=== PATIENT | male | born 1945 | race Caucasian/White ===

== ENCOUNTER 2016-09-13 18:14 | Emergency (ER) | payer OTHER ==
[2016-09-13 18:18] VITALS: BMI 27.2
--- NOTE | 2016-09-13 18:20 | DR.SOBA ---
HPI - Time Seen Time seen: 18:20 - HPI Comment HPI Comment: productive cough x 30 days. treated with zpak 2 weeks ago with no relief. no fever, no vomiting. - Reviewed Nurses Notes Reviewed: Yes - Source History Provided: Patient - Mode of Arrival Mode of Arrival: Ambulatory - Timing Onset of Chief Complaint: 08/14/16 - Duration Duration: Weeks - Context Onset:: At Rest PE Risk Factors:: None History of:: COPD Prehospital Care:: None - Modifying Factors Worsens:: Lying Flat Improves:: Nothing - Associated Signs and Symptoms Associated Signs and Symptoms: Cough - If Chest Pain Quality: denies: Sharp, Stabbing, Squeezing, Pressure like, Heavy, Crushing, Burning, Aching, Pleuritic, Other - If Cough Cough: Productive, Yellow - Other History Other History: Hx COPD PMH - PMH Past Medical History: Anxiety, Arthritis, COPD, Depression, Diabetes, Hypertension, Kidney Stones Past Surgical History: Yes Surgical History: Appendectomy, Bowel Resection - Family History Family Medical History: Diabetes Mellitus, [place], Coronary Artery Disease, Heart Failure, Sudden Cardiac , Hypertension - Social History Do you use any recreational Drugs:: No ROS - Review of Systems Constitutional: No Symptoms Reported Eyes: No Symptoms Reported ENTM: Nose Discharge Respiratoy: Productive Cough (yellow) Cardiovascular: No Symptoms Reported Gastrointestinal/Abdominal: No Symptoms Reported Genitourinary: No Symptoms Reported Neurological: No Symptoms Reported Musculoskeletal: No Symptoms Reported Integumentary: No Symptoms Reported Hematologic/Lymphatic: No Symptoms Reported Endocrine: No Symptoms Reported Psychiatric: Depression PE - Vital Signs Vitals: Temperature 97.8 F Pulse Rate 87 Respiratory Rate 20 Blood Pressure [Right Arm] 131/65 Blood Pressure [Left Arm] 133/65 Blood Pressure 191/86 O2 Sat by Pulse Oximetry 94 - General Limitations: No Limitations General Appearance: Alert, In No Apparent Distress - Head Head Exam: Normal Inspection - Eyes Eye exam: Normal Appearance, EOMI. negative: Scleral Icterus, Conjunctival Injection - ENT ENT Exam: Normal Exam, Normal Oropharynx - Neck Neck Exam: Normal Inspection, Full ROM, Trachea Midline - Chest Chest Inspection: Normal Inspection - Respiratory Respiratory Exam: negative: Normal Lung Sounds Bilat (LLL rales), Accessory Muscle Use, Respiratory Distress Respiratory Exam: Left Crackles - Cardiovascular Cardiovascular Exam: Regular Rate - Extremities Extremities Exam: Normal Inspection - Back Back Exam: Normal Inspection, Full ROM - Neurologic Neurological Exam: Alert, Oriented X3, CN II-XII Intact - Psychiatric Psychiatric Exam: Normal Affect - Skin Skin Exam: Intact, Normal Color ROR - Labs Reviewed Result Diagrams: 09/13/16 18:35 09/13/16 18:35 Laboratory: WBC 11.0 X10^3/uL (3.6-10.0) H 09/13/16 18:35 RBC 5.52 X10^6/uL (4.7-6.0) 09/13/16 18:35 Hgb 15.5 g/dL (13.5-18.0) 09/13/16 18:35 Hct 46.7 % (42.0-54.0) 09/13/16 18:35 MCV 84.6 fL (80.0-100.0) 09/13/16 18:35 MCH 28.1 pg (27.0-34.0) 09/13/16 18:35 MCHC 33.3 g/dL (33.0-35.0) 09/13/16 18:35 RDW 13.5 % (11.6-16.5) 09/13/16 18:35 Plt Count 141 X10^3/uL (150.0-450.0) L 09/13/16 18:35 MPV 8.6 fL (7.4-11.0) 09/13/16 18:35 Neut % 63.4 % (42.0-75.0) 09/13/16 18:35 Lymph % 24.2 % (21.0-51.0) 09/13/16 18:35 [place] % 9.1 % (0.0-13.0) 09/13/16 18:35 Eos % 2.5 % (0.9-2.9) 09/13/16 18:35 Baso % 0.8 % (0.2-1.0) 09/13/16 18:35 Neut # 7.0 x10^3/uL (2.2-4.8) H 09/13/16 18:35 Lymph # 2.7 X10^3/uL (1.3-2.9) 09/13/16 18:35 [place] # 1.0 x10^3/uL (0.3-0.8) H 09/13/16 18:35 Eos # 0.3 x10^3/uL (0.0-0.2) H 09/13/16 18:35 Baso # 0.1 X10^3/uL (0.0-0.1) 09/13/16 18:35 Absolute Nucleated RBC 0.0 /100WBC 09/13/16 18:35 Sodium 137 mmol/L (136-145) 09/13/16 18:35 Corrected Sodium 138 mmol/L (136-145) 09/13/16 18:35 Potassium 3.9 mmol/L (3.5-5.1) 09/13/16 18:35 Chloride 101 mmol/L (98-107) 09/13/16 18:35 Carbon Dioxide 30.5 mmol/L (21-32) 09/13/16 18:35 BUN 17 mg/dL (7-18) 09/13/16 18:35 Creatinine 0.91 mg/dL (0.70-1.30) 09/13/16 18:35 Est GFR (MDRD) Af Amer > 60 (>60) 09/13/16 18:35 Est GFR (MDRD) Non-Af > 60 (>60) 09/13/16 18:35 Glucose 151 mg/dL (65-99) H 09/13/16 18:35 Calcium 8.9 mg/dL (8.5-10.1) 09/13/16 18:35 - XRAY XRAY Interpreted by: Radiologist XRAY Findings: chest: COPD changes - Diagnosis Discharge Problem: COPD exacerbation - Discharge Plan Condition: Stable Prescriptions: Albuterol Sulfate [Proventil HFA Inhaler 6.7 gm] 2 inh IN Q8H #1 each Amoxicillin & Pot Clavulanate [AUGMENTIN TAB 875 mg/125 mg *] 1 tab PO BID #20 tab Prednisone [PREDNISONE TAB 20 MG *] 20 mg PO QAM #5 tab - Follow ups/Referrals Follow ups/Referrals: Hansel Francis [Primary Care Provider] - 3 days - Instructions
[2016-09-13] MEDS ORDERED: CATAPRES TAB 0.2 MG PO ONE (18:21)
[2016-09-13] MEDS ORDERED: CATAPRES TAB 0.2 MG ONE (18:32)
[2016-09-13] MEDS ORDERED: DUONEB 0.5 MG/3 MG NEB ONE (18:39)
[2016-09-13 18:45] LABS: BASOPHILS # (AUTO) 0.1 X10^3/uL (0.0-0.1); BASOPHILS % (AUTO) 0.8 % (0.2-1.0); EOSINOPHILS # (AUTO) 0.3 x10^3/uL (0.0-0.2); EOSINOPHILS % (AUTO) 2.5 % (0.9-2.9); HEMATOCRIT 46.7 % (42.0-54.0); HEMOGLOBIN 15.5 g/dL (13.5-18.0); LYMPHOCYTES # (AUTO) 2.7 X10^3/uL (1.3-2.9); LYMPHOCYTES % (AUTO) 24.2 % (21.0-51.0); MEAN CORPUSCULAR HEMOGLOBIN 28.1 pg (27.0-34.0); MEAN CORPUSCULAR HGB CONC 33.3 g/dL (33.0-35.0); MEAN CORPUSCULAR VOLUME 84.6 fL (80.0-100.0); MEAN PLATELET VOLUME 8.6 fL (7.4-11.0); MONOCYTES % (AUTO) 9.1 % (0.0-13.0); NEUTROPHILS % (AUTO) 63.4 % (42.0-75.0); PLATELET COUNT 141 X10^3/uL (150.0-450.0); RED BLOOD COUNT 5.52 X10^6/uL (4.7-6.0); RED CELL DISTRIBUTION WIDTH 13.5 % (11.6-16.5)
[2016-09-13 18:48] LABS: BLOOD UREA NITROGEN 17 mg/dL (7-18); CALCIUM 8.9 mg/dL (8.5-10.1); CARBON DIOXIDE 30.5 mmol/L (21-32); CHLORIDE 101 mmol/L (98-107); COR NA(FOR HYPERGLY) 138 mmol/L (136-145); CREATININE 0.91 mg/dL (0.70-1.30); GLUCOSE 151 mg/dL (65-99); SODIUM 137 mmol/L (136-145); eGFR BLACK RACES > 60 (>60); eGFR NON BLACK RACES > 60 (>60)
[2016-09-13] MEDS ORDERED: DUONEB 0.5 MG/3 MG ONE (18:48)
--- NOTE | 2016-09-13 19:29 | RAD ---
HISTORY: Productive cough. Study: Chest two views Comparison: December 17, 2014 Findings: The trachea is midline. The cardiac silhouette is unremarkable. Surgical clips project over both lew ng apices. There changes of COPD in both lungs. There is chronic interstitial lung disease bilateral ly. The lungs are clear without focal infiltrate or effusion. The bony thorax is unremarkable. IMPRESSION: 1. COPD/interstitial lung disease. 2. No acute pulmonary abnormality. Reported By:
[2016-09-13] MEDS ORDERED: PREDNISONE TAB 20 MG PO ONE ×2 (19:42→19:44)
[2016-09-13 19:50] VITALS: BP 150/73
== END 2016-09-13 19:51 | disposition home or self-care (01) ==
LOC: ER 18:37
DX: J44.1 Chronic obstructive pulmonary disease with (acute) exacerbation (principal)
CPT/HCPCS: 36415; 71020; 80048; 85025; 87070; 87205; 94640; 99283; J7506; J7620

== ENCOUNTER 2016-11-23 16:48 | Emergency (ER) | payer OTHER ==
[2016-11-23 16:58] VITALS: BP 162/78; BMI 27.5
--- NOTE | 2016-11-23 17:50 | DR.GENAD ---
HPI - PCP Primary Care Physician: KALEIGH CRAFT - Complaint/Symptoms Chief Complaint Doctors Comments: Patient states that he has a history of neuropathy Chief Complaint:: PT STATES " I HAVE BEEN HAVING SWELLING IN MY LEGS SINCE LAST SATURDAY AND I AM A DIABETIC. Self Treatment fo Chief Complaint: NONE PITTING EDEMA NOTED BILATERALLY TO LOWER EXTS..BR - Source History Provided: Patient - Mode of Arrival Mode of Arrival: Ambulatory - Timing Onset of Chief Complaint: 11/18/16 PMH - PMH Past Medical History: Yes Past Medical History: Anxiety, Arthritis, COPD, Depression, Diabetes, Hypertension, Kidney Stones Past Surgical History: Yes Surgical History: Appendectomy, Bowel Resection - Family History History of Family Medical Conditions: Yes Family Medical History: Diabetes Mellitus, [place], Coronary Artery Disease, Heart Failure, Sudden Cardiac , Hypertension - Social History Does patient currently use any type of tobacco product: No Have you used tobacco products in the last 12 months: No Type of Tobacco Use: None Does any household member use tobacco: No Alcohol Use: None Do you use any recreational Drugs:: No Lives With: Family Lives Where: Home - infectious screening In the last 2 months have you had wt loss of >10#?: NO Have you had fever, night sweats or hemotysis?: No Have you traveled outside the country in the last 6 months?: No Isolation: Standard ROS - Review of Systems Eyes: No Symptoms Reported ENTM: No Symptoms Reported Respiratoy: No Symptoms Reported Cardiovascular: No Symptoms Reported Gastrointestinal/Abdominal: No Symptoms Reported Genitourinary: No Symptoms Reported Neurological: No Symptoms Reported Musculoskeletal: No Symptoms Reported Integumentary: No Symptoms Reported Hematologic/Lymphatic: No Symptoms Reported Endocrine: No Symptoms Reported Psychiatric: No Symptoms Reported All Other Systems: Reviewed and Negative PE - Vital Signs Vitals: Temperature 97.8 F Pulse Rate 76 Respiratory Rate 18 Blood Pressure [Right Arm] 131/65 Blood Pressure [Left Arm] 150/73 Blood Pressure 162/78 O2 Sat by Pulse Oximetry 94 - General Limitations: No Limitations General Appearance: Alert, In No Apparent Distress - Head Head Exam: Normal Inspection, Atraumatic - Eyes Eye exam: Normal Appearance, PERRL, EOMI - ENT ENT Exam: Normal Exam External Ear Exam: Normal External Inspection TM/Canal Exam: Bilateral Normal Nose Exam: Normal Nose Exam, Sinus Tenderness Mouth Exam: Normal Inspection Throat Exam: Normal Inspection - Neck Neck Exam: Normal Inspection, Full ROM - Chest Chest Inspection: Normal Inspection, Symmetric Chest Wall Rise - Respiratory Respiratory Exam: Normal Lung Sounds Bilat Respiratory Exam: Bilateral Clear to Auscultation - Cardiovascular Cardiovascular Exam: Regular Rate, Normal Rhythm - Abdominal Exam Abdominal Exam: Normal Inspection, Normal Bowel Sounds Abdominal Tenderness: negative: RUQ, RLQ, LUQ, LLQ, Epigastrium, Suprapubic, Diffuse, Mild, Moderate, Severe, Other - Extremities Extremities Exam: Normal Inspection, Full ROM - Back Back Exam: Normal Inspection - Neurologic Neurological Exam: Alert, Oriented X3, CN II-XII Intact - Psychiatric Psychiatric Exam: Normal Affect - Skin Skin Exam: Warm, Dry, Intact ROR - Labs Reviewed Result Diagrams: 11/23/16 17:55 11/23/16 17:55 Laboratory: WBC 10.3 X10^3/uL (3.6-10.0) H 11/23/16 17:55 RBC 5.14 X10^6/uL (4.7-6.0) 11/23/16 17:55 Hgb 15.1 g/dL (13.5-18.0) 11/23/16 17:55 Hct 43.2 % (42.0-54.0) 11/23/16 17:55 MCV 84.1 fL (80.0-100.0) 11/23/16 17:55 MCH 29.3 pg (27.0-34.0) 11/23/16 17:55 MCHC 34.9 g/dL (33.0-35.0) 11/23/16 17:55 RDW 14.2 % (11.6-16.5) 11/23/16 17:55 Plt Count 159 X10^3/uL (150.0-450.0) 11/23/16 17:55 MPV 8.4 fL (7.4-11.0) 11/23/16 17:55 Neut % 66.5 % (42.0-75.0) 11/23/16 17:55 Lymph % 21.7 % (21.0-51.0) 11/23/16 17:55 [place] % 9.5 % (0.0-13.0) 11/23/16 17:55 Eos % 1.5 % (0.9-2.9) 11/23/16 17:55 Baso % 0.8 % (0.2-1.0) 11/23/16 17:55 Neut # 6.9 x10^3/uL (2.2-4.8) H 11/23/16 17:55 Lymph # 2.2 X10^3/uL (1.3-2.9) 11/23/16 17:55 [place] # 1.0 x10^3/uL (0.3-0.8) H 11/23/16 17:55 Eos # 0.2 x10^3/uL (0.0-0.2) 11/23/16 17:55 Baso # 0.1 X10^3/uL (0.0-0.1) 11/23/16 17:55 Absolute Nucleated RBC 0.0 /100WBC 11/23/16 17:55 Sodium 138 mmol/L (136-145) 11/23/16 17:55 Corrected Sodium 138 mmol/L (136-145) 11/23/16 17:55 Potassium 4.2 mmol/L (3.5-5.1) 11/23/16 17:55 Chloride 102 mmol/L (98-107) 11/23/16 17:55 Carbon Dioxide 31.2 mmol/L (21-32) 11/23/16 17:55 BUN 12 mg/dL (7-18) 11/23/16 17:55 Creatinine 1.02 mg/dL (0.70-1.30) 11/23/16 17:55 Est GFR (MDRD) Af Amer > 60 (>60) 11/23/16 17:55 Est GFR (MDRD) Non-Af > 60 (>60) 11/23/16 17:55 Glucose 118 mg/dL (65-99) H 11/23/16 17:55 Calcium 8.8 mg/dL (8.5-10.1) 11/23/16 17:55 Corrected Calcium TNP 11/23/16 17:55 Total Bilirubin 0.50 mg/dL (0.2-1.0) 11/23/16 17:55 AST 26 Units/L (15-37) 11/23/16 17:55 ALT 33 Units/L (12-78) 11/23/16 17:55 Alkaline Phosphatase 92 Units/L (46-116) 11/23/16 17:55 Total Protein 7.7 g/dL (6.4-8.2) 11/23/16 17:55 Albumin 3.5 g/dL (3.4-5.0) 11/23/16 17:55 Globulin 4.2 g/dL (2.5-4.5) 11/23/16 17:55 Albumin/Globulin Ratio 0.8 Ratio (1.1-2.1) L 11/23/16 17:55 Specimen Type Clean catch urine 11/23/16 18:46 Urine Color Yellow (YELLOW) 11/23/16 18:46 Urine Appearance Clear (CLEAR) 11/23/16 18:46 Urine pH 7.0 (5.0 - 8.0) 11/23/16 18:46 Ur Specific [place] 1.010 (1.000-1.030) 11/23/16 18:46 Urine Protein Negative (NEGATIVE) 11/23/16 18:46 Urine Glucose (UA) Negative (NEGATIVE) 11/23/16 18:46 Urine Ketones Negative (NEGATIVE) 11/23/16 18:46 Urine Occult Blood Negative (NEGATIVE) 11/23/16 18:46 Urine Nitrite Negative (NEGATIVE) 11/23/16 18:46 Urine Bilirubin Negative (NEGATIVE) 11/23/16 18:46 Urine Urobilinogen Normal (NORMAL) 11/23/16 18:46 Ur Leukocyte Esterase Negative (NEGATIVE) 11/23/16 18:46 Urine RBC 0-3 /HPF (NEGATIVE) 11/23/16 18:46 Urine WBC 0-3 /HPF (NEGATIVE) 11/23/16 18:46 Ur Squamous Epith Cells Rare /HPF (NEGATIVE) 11/23/16 18:46 Urine Bacteria Negative /HPF (NEGATIVE) 11/23/16 18:46 Ur Culture Indicated? No/not indicated 11/23/16 18:46 - XRAY XRAY Interpreted by: Radiologist (chest: Cardiomegaly and COPD with pleural thickening and interstitial lung disease. Clips project over the chest. Cervical spine hardware noted. Impresssin: Cardiomegaly and chronic intersitial lung disease, with COPD possible jason well. Bronchitis can't be excluded. No new dense consolidation seen.) - Diagnosis Discharge Problem: Peripheral neuropathy Qualifiers: Peripheral neuropathy type: polyneuropathy, unspecified Qualified Code(s): G62.9 - Polyneuropathy, unspecified - Discharge Plan Condition: Stable - Follow ups/Referrals Follow ups/Referrals: Hansel Francis [Primary Care Provider] - 3 days - Instructions
[2016-11-23] MEDS ORDERED: DILAUDID INJ IM ONE (17:51)
[2016-11-23 18:06] LABS: BASOPHILS # (AUTO) 0.1 X10^3/uL (0.0-0.1); BASOPHILS % (AUTO) 0.8 % (0.2-1.0); EOSINOPHILS # (AUTO) 0.2 x10^3/uL (0.0-0.2); EOSINOPHILS % (AUTO) 1.5 % (0.9-2.9); HEMATOCRIT 43.2 % (42.0-54.0); HEMOGLOBIN 15.1 g/dL (13.5-18.0); LYMPHOCYTES # (AUTO) 2.2 X10^3/uL (1.3-2.9); LYMPHOCYTES % (AUTO) 21.7 % (21.0-51.0); MEAN CORPUSCULAR HEMOGLOBIN 29.3 pg (27.0-34.0); MEAN CORPUSCULAR HGB CONC 34.9 g/dL (33.0-35.0); MEAN CORPUSCULAR VOLUME 84.1 fL (80.0-100.0); MEAN PLATELET VOLUME 8.4 fL (7.4-11.0); MONOCYTES % (AUTO) 9.5 % (0.0-13.0); NEUTROPHILS # (AUTO) 6.9 x10^3/uL (2.2-4.8); NEUTROPHILS % (AUTO) 66.5 % (42.0-75.0); PLATELET COUNT 159 X10^3/uL (150.0-450.0); RED BLOOD COUNT 5.14 X10^6/uL (4.7-6.0); RED CELL DISTRIBUTION WIDTH 14.2 % (11.6-16.5); WHITE BLOOD COUNT 10.3 X10^3/uL (3.6-10.0)
[2016-11-23 18:22] LABS: ALANINE AMINOTRANSFERASE 33 Units/L (12-78); ALBUMIN 3.5 g/dL (3.4-5.0); ALKALINE PHOSPHATASE 92 Units/L (46-116); ASPARTATE AMINO TRANSFERASE 26 Units/L (15-37); BLOOD UREA NITROGEN 12 mg/dL (7-18); CALCIUM 8.8 mg/dL (8.5-10.1); CARBON DIOXIDE 31.2 mmol/L (21-32); CHLORIDE 102 mmol/L (98-107); COR NA(FOR HYPERGLY) 138 mmol/L (136-145); CREATININE 1.02 mg/dL (0.70-1.30); GLUCOSE 118 mg/dL (65-99); SODIUM 138 mmol/L (136-145); TOTAL PROTEIN 7.7 g/dL (6.4-8.2); eGFR BLACK RACES > 60 (>60); eGFR NON BLACK RACES > 60 (>60)
--- NOTE | 2016-11-23 18:23 | RAD ---
Chest PA and lateral Indication: Lower extremity pain and swelling. Comparison: September 13, 2016. Findings: There is cardiomegaly and COPD with pleural thickening and interstitial lung disease. Clip s project over the chest. Cervical spine hardware noted. Impression: Cardiomegaly and chronic interstitial lung disease, with COPD possible as well. Bronchit is can't be excluded. No new dense consolidation seen. Reported By:
[2016-11-23] MEDS ORDERED: DILAUDID INJ ONE (18:41)
[2016-11-23 18:54] LABS: BILIRUBIN,URINE NEGATIVE (NEGATIVE); BLOOD/HEMOGLOBIN,URINE NEGATIVE (NEGATIVE); GLUCOSE, URINE NEGATIVE (NEGATIVE); KETONES,URINE NEGATIVE (NEGATIVE); LEUKOCYTE ESTERASE ,URINE NEGATIVE (NEGATIVE); NITRITES,URINE NEGATIVE (NEGATIVE); PROTEIN,URINE NEGATIVE (NEGATIVE); UROBILINOGEN,URINE NORMAL (NORMAL)
[2016-11-23 19:01] LABS: COLOR,URINE YELLOW (YELLOW)
[2016-11-23 19:02] LABS: APPEARANCE,URINE CLEAR (CLEAR); BACTERIA,URINE NEGATIVE /HPF (NEGATIVE); RBC,URINE 0-3 /HPF (NEGATIVE); SQUAMOUS EPITHELIAL CELL,UR RARE /HPF (NEGATIVE)
== END 2016-11-23 20:12 | disposition home or self-care (01) ==
LOC: ER 17:07
DX: G62.9 Polyneuropathy, unspecified (principal); J44.9 Chronic obstructive pulmonary disease, unspecified; E11.40 Type 2 diabetes mellitus with diabetic neuropathy, unspecified
CPT/HCPCS: 36415; 71020; 80053; 81001; 85025; 96372; 99283

== ENCOUNTER 2017-04-26 15:02 | Inpatient (IN) | payer OTHER ==
[2017-04-26] MEDS ORDERED: DUONEB 0.5 MG/3 MG NEB ONE ×2 (15:31→19:00)
--- NOTE | 2017-04-26 15:45 | DR.GENAD ---
HPI - PCP Primary Care Physician: R - HPI Comment HPI Comment: FELT FEVERISH AT HOME. PRODUCTIVE COUGH, YELLOW SPUTUM. GETTING WORSE. HOME MEDS NOT HELPING. - Complaint/Symptoms Chief Complaint Doctors Comments: INCRESING SOB, CHEST PAIN, PRODUCTIVE COUGH AND WEAKNESS TIMES ONE WEEK. Chief Complaint:: patient states he thinks he has pneumonia - Nurses notes reviewed Nurses Notes Review: Yes - Source History Provided: Patient - Mode of Arrival Mode of Arrival: Ambulatory - Timing Onset of Chief Complaint: 04/19/17 Came on: Suddenly - Duration Duration: Constant Duration: Days - Severity Severity: Moderate PMH - PMH Past Medical History: Yes Past Medical History: Anxiety, Arthritis, COPD, Depression, Diabetes, Hypertension, Kidney Stones Past Surgical History: Yes Surgical History: Appendectomy, Bowel Resection - Family History History of Family Medical Conditions: Yes Family Medical History: Diabetes Mellitus, [place], Coronary Artery Disease, Heart Failure, Sudden Cardiac , Hypertension - Social History Does patient currently use any type of tobacco product: No Have you used tobacco products in the last 12 months: No Type of Tobacco Use: None Does any household member use tobacco: No Alcohol Use: None Do you use any recreational Drugs:: No Lives With: Family Lives Where: Home - infectious screening In the last 2 months have you had wt loss of >10#?: NO Have you had fever, night sweats or hemotysis?: No Have you traveled outside the country in the last 6 months?: No Isolation: Standard ROS - Review of Systems Constitutional: Weakness, Fatigue. negative: Chills, Fever Eyes: negative: Eye Pain, Discharge ENTM: Nose Congestion. negative: Ear Pain, Nose Discharge, Throat Pain Respiratoy: Productive Cough, Short of Breath, Wheezing. negative: Hemoptysis Cardiovascular: Chest Pain Gastrointestinal/Abdominal: No Symptoms Reported. negative: Abdominal Pain, Diarrhea, Nausea, Vomiting Genitourinary: negative: Dysuria, Frequency, Hematuria Neurological: Headache, Weakness, Dizziness Musculoskeletal: Joint Pain, Muscle Pain Integumentary: No Symptoms Reported Hematologic/Lymphatic: No Symptoms Reported Endocrine: No Symptoms Reported All Other Systems: Reviewed and Negative PE - Vital Signs Vitals: Temperature 98.9 F Pulse Rate [Left Brachial] 98 Pulse Rate 110 Respiratory Rate 24 Blood Pressure [Right Arm] 131/65 Blood Pressure [Left Arm] 155/70 Blood Pressure 165/70 O2 Sat by Pulse Oximetry 94 - General Limitations: Altered Mental Status General Appearance: Alert - Head Head Exam: Normal Inspection, Atraumatic - Eyes Eye exam: PERRL, EOMI. negative: Scleral Icterus, Conjunctival Injection, Periorbital Swelling, Periorbital Tenderness - ENT ENT Exam: Normal External Ear Exam External Ear Exam: Normal External Inspection TM/Canal Exam: Bilateral Normal Nose Exam: Normal Nose Exam Mouth Exam: Normal Inspection Throat Exam: Normal Inspection. negative: Tonsillar Erythema, Tonsillomegaly - Neck Neck Exam: Trachea Midline. negative: Tenderness, Meningismus, Lymphadenopathy - Chest Chest Inspection: Symmetric Chest Wall Rise - Respiratory Respiratory Exam: Normal Lung Sounds Bilat Respiratory Exam: Bilateral Wheezing, Bilateral Rhonchi, Upper Wheezing, Upper Rhonchi, Lower Wheezing, Lower Rhonchi - Cardiovascular Cardiovascular Exam: Regular Rate, Normal Rhythm, Normal Heart Sounds - Abdominal Exam Abdominal Exam: Normal Bowel Sounds, Soft. negative: Tenderness - Extremities Extremities Exam: Normal Inspection - Back Back Exam: Normal Inspection - Neurologic Neurological Exam: Alert, Oriented X3 - Psychiatric Psychiatric Exam: Anxious - Skin Skin Exam: Normal Color MDM - Additional Information Additional Information Obtained From: Family - Differential Diagnosis Differential Diagnosis: [place], COPD EXACERBATION, PNEUMONIA, BRONCHITIS Course - Treatment Treatment: SEE ORDERS. - Consultation Consultation Comments: DISCUSS PATIENT WITH DR. BERRY, HE WILL ADMIT PATIENT. - Education/Counseling Education/Counseling: Patient, Family, Education Educated On: Diagnosis ROR - Labs Reviewed Laboratory Results Reviewed?: Yes Result Diagrams: 04/28/17 03:45 04/28/17 03:45 Laboratory: 04/26/17 16:03 Sputum - Endotracheal Wash - Final WBC 20.2 X10^3/uL (3.6-10.0) H 04/26/17 15:41 RBC 5.44 X10^6/uL (4.7-6.0) 04/26/17 15:41 Hgb 15.6 g/dL (13.5-18.0) 04/26/17 15:41 Hct 45.8 % (42.0-54.0) 04/26/17 15:41 MCV 84.1 fL (80.0-100.0) 04/26/17 15:41 MCH 28.7 pg (27.0-34.0) 04/26/17 15:41 MCHC 34.1 g/dL (33.0-35.0) 04/26/17 15:41 RDW 14.3 % (11.6-16.5) 04/26/17 15:41 Plt Count 178 X10^3/uL (150.0-450.0) 04/26/17 15:41 MPV 8.9 fL (7.4-11.0) 04/26/17 15:41 Neut % 82.7 % (42.0-75.0) H 04/26/17 15:41 Lymph % 5.6 % (21.0-51.0) L 04/26/17 15:41 [place] % 10.4 % (0.0-13.0) 04/26/17 15:41 Eos % 0.6 % (0.9-2.9) L 04/26/17 15:41 Baso % 0.7 % (0.2-1.0) 04/26/17 15:41 Neut # 16.7 x10^3/uL (2.2-4.8) H 04/26/17 15:41 Lymph # 1.1 X10^3/uL (1.3-2.9) L 04/26/17 15:41 [place] # 2.1 x10^3/uL (0.3-0.8) H 04/26/17 15:41 Eos # 0.1 x10^3/uL (0.0-0.2) 04/26/17 15:41 Baso # 0.1 X10^3/uL (0.0-0.1) 04/26/17 15:41 Absolute Nucleated RBC 0.0 /100WBC 04/26/17 15:41 Sodium 134 mmol/L (136-145) L 04/26/17 15:41 Corrected Sodium 137 mmol/L (136-145) 04/26/17 15:41 Potassium 3.8 mmol/L (3.5-5.1) 04/26/17 15:41 Chloride 95 mmol/L (98-107) L 04/26/17 15:41 Carbon Dioxide 27.5 mmol/L (21-32) 04/26/17 15:41 BUN 44 mg/dL (7-18) H 04/26/17 15:41 Creatinine 1.70 mg/dL (0.70-1.30) H 04/26/17 15:41 Est GFR (MDRD) Af Amer 51 (>60) L 04/26/17 15:41 Est GFR (MDRD) Non-Af 42 (>60) L 04/26/17 15:41 Glucose 216 mg/dL (65-99) H 04/26/17 15:41 Calcium 9.7 mg/dL (8.5-10.1) 04/26/17 15:41 - XRAY XRAY Interpreted by: Radiologist XRAY Findings: REPORT DISCUSS WITH PATIENT. - EKG Rhythm: NSR (EKG NOTED) - Diagnosis Discharge Problem: Bronchitis Chest pain Qualifiers: Chest pain type: precordial pain Qualified Code(s): R07.2 - Precordial pain COPD (chronic obstructive pulmonary disease) Qualifiers: COPD type: COPD with acute exacerbation Qualified Code(s): J44.1 - Chronic obstructive pulmonary disease with (acute) exacerbation - Discharge Plan Disposition: ADMITTED INPATIENT Condition: Stable - Follow ups/Referrals - Instructions
[2017-04-26 15:59] LABS: BASOPHILS # (AUTO) 0.1 X10^3/uL (0.0-0.1); BASOPHILS % (AUTO) 0.7 % (0.2-1.0); EOSINOPHILS # (AUTO) 0.1 x10^3/uL (0.0-0.2); EOSINOPHILS % (AUTO) 0.6 % (0.9-2.9); HEMATOCRIT 45.8 % (42.0-54.0); HEMOGLOBIN 15.6 g/dL (13.5-18.0); LYMPHOCYTES # (AUTO) 1.1 X10^3/uL (1.3-2.9); LYMPHOCYTES % (AUTO) 5.6 % (21.0-51.0); MEAN CORPUSCULAR HEMOGLOBIN 28.7 pg (27.0-34.0); MEAN CORPUSCULAR HGB CONC 34.1 g/dL (33.0-35.0); MEAN CORPUSCULAR VOLUME 84.1 fL (80.0-100.0); MEAN PLATELET VOLUME 8.9 fL (7.4-11.0); MONOCYTES # (AUTO) 2.1 x10^3/uL (0.3-0.8); MONOCYTES % (AUTO) 10.4 % (0.0-13.0); NEUTROPHILS # (AUTO) 16.7 x10^3/uL (2.2-4.8); NEUTROPHILS % (AUTO) 82.7 % (42.0-75.0); PLATELET COUNT 178 X10^3/uL (150.0-450.0); RED BLOOD COUNT 5.44 X10^6/uL (4.7-6.0); RED CELL DISTRIBUTION WIDTH 14.3 % (11.6-16.5); WHITE BLOOD COUNT 20.2 X10^3/uL (3.6-10.0)
--- NOTE | 2017-04-26 16:03 | RAD ---
Examination: Chest, PA and lateral views History: Pneumonia, cough and SOB Comparison reference: 11/23/2016 Findings: Continued normal heart size with extensive diffuse bilateral interstitial infiltrates, slig htly increased since 11/23/2016. There is stable pleural thickening over the apices, right greater th an left. There is suggested interval increase in with of the mediastinum. A discrete mass is not iden tified and there is no evidence for large pleural effusion or bone destruction. Impression: 1. Persistent bilateral interstitial lung disease consistent with CT documented fibrosis. 2. Chronic biapical pleural thickening and postsurgical findings. 3. Apparent interval widening of the superior mediastinum since November,. Although this may be a fo rtuitous finding, the possibility of developing mass/adenopathy should be excluded. CT is recommended . Reported By:
[2017-04-26 16:11] LABS: CALCIUM 9.7 mg/dL (8.5-10.1); CARBON DIOXIDE 27.5 mmol/L (21-32); CREATININE 1.7 mg/dL (0.70-1.30)
[2017-04-26] MEDS ORDERED: ROCEPHIN VIAL 1 GM 1 GM in NS 50 ML IV + SPIKE MINIBAG* 50 ML IV ONE (17:28)
[2017-04-26] MEDS ORDERED: SOLU-Medrol 125 MG VIAL IVP ONE (17:29)
[2017-04-26] MEDS ORDERED: SOLU-Medrol 125 MG VIAL ONE (17:31)
[2017-04-26] MEDS ORDERED: ROCEPHIN 1 GM IV PREMIX 1 GM/50 ML IV.SOLN. IV ONE (17:31)
[2017-04-26] MEDS: HumuLIN R SUBCUT PRN (20:28)
[2017-04-26] MEDS: LEVAQUIN TAB 500 MG PO SCH (20:29)
[2017-04-26] MEDS: SNACK - Diabetic Appropriate PO SCH (20:29)
[2017-04-26] MEDS: NS 1000 ML 1,000 ML IV SCH (20:29)
[2017-04-26] MEDS: DUONEB 0.5 MG/3 MG NEB SCH (20:56)
[2017-04-26] MEDS ORDERED: DUONEB 0.5 MG/3 MG NEB SCH (21:00)
[2017-04-26 21:45] LABS: COR CA(FOR HYPOALB) 10.5 mg/dL (8.5-10.1); TOTAL PROTEIN 8.4 g/dL (6.4-8.2)
[2017-04-26 22:05] VITALS: BMI 27.6
[2017-04-26] MEDS ORDERED: FLUVIRIN IM ONE (22:05)
[2017-04-26 22:42] LABS: CKMB % 1.3 % (<4); CREATINE KINASE 208 Units/L (39-308); CREATINE KINASE MB 2.7 ng/mL (0-4.0); TROPONIN I < 0.02 ng/mL (0-1.5)
[2017-04-27] MEDS: DUONEB 0.5 MG/3 MG NEB SCH ×6 (00:58→21:35)
[2017-04-27] MEDS: HumuLIN R SUBCUT PRN ×4 (06:31→20:57)
[2017-04-27 07:13] LABS: BLOOD UREA NITROGEN 37 mg/dL (7-18); CALCIUM 9.6 mg/dL (8.5-10.1); CARBON DIOXIDE 22.7 mmol/L (21-32); CHLORIDE 98 mmol/L (98-107); COR NA(FOR HYPERGLY) 140 mmol/L (136-145); CREATININE 1.37 mg/dL (0.70-1.30); SODIUM 133 mmol/L (136-145); eGFR BLACK RACES > 60 (>60); eGFR NON BLACK RACES 54 (>60)
[2017-04-27 07:21] LABS: BASOPHILS % (AUTO) 0.1 % (0.2-1.0); HEMOGLOBIN 15.2 g/dL (13.5-18.0); LYMPHOCYTES # (AUTO) 0.6 X10^3/uL (1.3-2.9); LYMPHOCYTES % (AUTO) 4.1 % (21.0-51.0); MEAN CORPUSCULAR HEMOGLOBIN 28.7 pg (27.0-34.0); MEAN CORPUSCULAR HGB CONC 33.8 g/dL (33.0-35.0); MEAN CORPUSCULAR VOLUME 84.7 fL (80.0-100.0); MEAN PLATELET VOLUME 9.9 fL (7.4-11.0); MONOCYTES # (AUTO) 0.3 x10^3/uL (0.3-0.8); MONOCYTES % (AUTO) 2.3 % (0.0-13.0); NEUTROPHILS # (AUTO) 12.7 x10^3/uL (2.2-4.8); NEUTROPHILS % (AUTO) 93.5 % (42.0-75.0); PLATELET COUNT 197 X10^3/uL (150.0-450.0); RED BLOOD COUNT 5.31 X10^6/uL (4.7-6.0); RED CELL DISTRIBUTION WIDTH 14.2 % (11.6-16.5); WHITE BLOOD COUNT 13.6 X10^3/uL (3.6-10.0)
[2017-04-27 07:49] LABS: ALANINE AMINOTRANSFERASE 21 Units/L (12-78); ALBUMIN 2.7 g/dL (3.4-5.0); ALKALINE PHOSPHATASE 129 Units/L (46-116); ASPARTATE AMINO TRANSFERASE 20 Units/L (15-37); CKMB % 1.8 % (<4); CREATINE KINASE 123 Units/L (39-308); CREATINE KINASE MB 2.2 ng/mL (0-4.0); MAGNESIUM 2.3 mg/dL (1.7-2.9); TOTAL PROTEIN 8.3 g/dL (6.4-8.2); TROPONIN I < 0.02 ng/mL (0-1.5)
[2017-04-27 07:53] LABS: BAND NEUTROPHILS % 5 % (0-10); PLATELET MORPHOLOGY COMMENT NORMAL (NORMAL)
[2017-04-27 08:15] LABS: COR CA(FOR HYPOALB) 10.6 mg/dL (8.5-10.1)
[2017-04-27] MEDS ORDERED: ROCEPHIN VIAL 1 GM 1 GM in NS 50 ML IV + SPIKE MINIBAG* 50 ML IV SCH (09:00)
[2017-04-27] MEDS: SOLU-Medrol 40 MG VIAL IVP SCH ×2 (09:12→16:53)
[2017-04-27] MEDS: ROCEPHIN 1 GM IV PREMIX 1 GM/50 ML IV.SOLN. IV SCH (09:22)
[2017-04-27] MEDS ORDERED: MOBIC TAB 15 MG PO PRN (15:53)
[2017-04-27] MEDS ORDERED: PATIENT'S HOME MEDICATION (Losartan Potassium [Losartan Potassium] 1 TAB) PO SCH (16:00)
[2017-04-27] MEDS: SNACK - Diabetic Appropriate PO SCH (20:43)
[2017-04-27] MEDS: ZANAFLEX PO SCH (20:55)
[2017-04-27] MEDS: NS 1000 ML 1,000 ML IV SCH (20:56)
[2017-04-27] MEDS: LEVAQUIN TAB 500 MG PO SCH (20:56)
[2017-04-27] MEDS: LANTUS SC SCH (20:57)
[2017-04-27] MEDS: NEURONTIN CAP 400 MG PO SCH (21:00)
[2017-04-27] MEDS ORDERED: PATIENT'S HOME MEDICATION (Gabapentin [Gabapentin] 800 MG) PO SCH (22:00)
[2017-04-28] MEDS: DUONEB 0.5 MG/3 MG NEB SCH ×6 (01:06→20:58)
[2017-04-28] MEDS: SOLU-Medrol 40 MG VIAL IVP SCH ×3 (01:19→16:13)
[2017-04-28 04:35] LABS: BASOPHILS % (AUTO) 0.1 % (0.2-1.0); HEMATOCRIT 41.2 % (42.0-54.0); HEMOGLOBIN 13.7 g/dL (13.5-18.0); LYMPHOCYTES # (AUTO) 0.8 X10^3/uL (1.3-2.9); MEAN CORPUSCULAR HEMOGLOBIN 28.5 pg (27.0-34.0); MEAN CORPUSCULAR HGB CONC 33.2 g/dL (33.0-35.0); MEAN CORPUSCULAR VOLUME 85.9 fL (80.0-100.0); MEAN PLATELET VOLUME 9.4 fL (7.4-11.0); NEUTROPHILS # (AUTO) 18.3 x10^3/uL (2.2-4.8); NEUTROPHILS % (AUTO) 90.9 % (42.0-75.0); PLATELET COUNT 217 X10^3/uL (150.0-450.0); RED BLOOD COUNT 4.79 X10^6/uL (4.7-6.0); RED CELL DISTRIBUTION WIDTH 13.9 % (11.6-16.5); WHITE BLOOD COUNT 20.1 X10^3/uL (3.6-10.0)
[2017-04-28 05:00] LABS: ALANINE AMINOTRANSFERASE 23 Units/L (12-78); ALBUMIN 2.3 g/dL (3.4-5.0); ALKALINE PHOSPHATASE 119 Units/L (46-116); ASPARTATE AMINO TRANSFERASE 21 Units/L (15-37); BLOOD UREA NITROGEN 35 mg/dL (7-18); CALCIUM 8.8 mg/dL (8.5-10.1); CARBON DIOXIDE 23.4 mmol/L (21-32); CHLORIDE 101 mmol/L (98-107); COR CA(FOR HYPOALB) 10.2 mg/dL (8.5-10.1); COR NA(FOR HYPERGLY) 142 mmol/L (136-145); CREATININE 1.17 mg/dL (0.70-1.30); SODIUM 135 mmol/L (136-145); TOTAL PROTEIN 7.2 g/dL (6.4-8.2); eGFR BLACK RACES > 60 (>60); eGFR NON BLACK RACES > 60 (>60)
[2017-04-28] MEDS: HumuLIN R SUBCUT PRN ×4 (05:51→20:54)
[2017-04-28] MEDS: NEURONTIN CAP 400 MG PO SCH ×3 (05:51→21:14)
[2017-04-28 06:01] LABS: BAND NEUTROPHILS % 4 % (0-10); PLATELET MORPHOLOGY COMMENT NORMAL (NORMAL)
--- NOTE | 2017-04-28 06:59 | RAD ---
Examination portable AP chest History: SOB COPD Comparison reference 04/26/2017 Findings: There is no definite change since 2 days earlier. Stable interstitial lung disease is again noted, with persistent widening of the mediastinum. Apical pleural thickening is unchanged. Impression: No improvement or significant progression of radiographic findings since 04/26/2017. Reported By:
[2017-04-28] MEDS: JANUVIA PO SCH (09:26)
[2017-04-28] MEDS: COZAAR PO SCH (09:26)
[2017-04-28] MEDS: ROCEPHIN 1 GM IV PREMIX 1 GM/50 ML IV.SOLN. IV SCH (09:26)
[2017-04-28] MEDS: NS 1000 ML 1,000 ML IV SCH ×2 (13:57→20:51)
[2017-04-28] MEDS: ROBITUSSIN DM PO PRN (16:13)
[2017-04-28] MEDS: SNACK - Diabetic Appropriate PO SCH (20:00)
[2017-04-28] MEDS: LEVAQUIN TAB 500 MG PO SCH (20:51)
[2017-04-28] MEDS: RESTORIL CAP 15 MG PO PRN (20:51)
[2017-04-28] MEDS: LANTUS SC SCH (20:52)
[2017-04-28] MEDS: ZANAFLEX PO SCH (20:52)
[2017-04-29] MEDS: DUONEB 0.5 MG/3 MG NEB SCH ×6 (00:59→20:56)
[2017-04-29] MEDS: SOLU-Medrol 40 MG VIAL IVP SCH ×3 (01:46→17:52)
[2017-04-29 04:31] LABS: BLOOD UREA NITROGEN 34 mg/dL (7-18); CALCIUM 9.3 mg/dL (8.5-10.1); CARBON DIOXIDE 27.5 mmol/L (21-32); CHLORIDE 103 mmol/L (98-107); COR NA(FOR HYPERGLY) 143 mmol/L (136-145); CREATININE 1.01 mg/dL (0.70-1.30); SODIUM 139 mmol/L (136-145); eGFR BLACK RACES > 60 (>60); eGFR NON BLACK RACES > 60 (>60)
[2017-04-29 04:50] LABS: BASOPHILS % (AUTO) 0 % (0.2-1.0); HEMATOCRIT 39.1 % (42.0-54.0); HEMOGLOBIN 13.2 g/dL (13.5-18.0); LYMPHOCYTES % (AUTO) 6.5 % (21.0-51.0); MEAN CORPUSCULAR HEMOGLOBIN 28.6 pg (27.0-34.0); MEAN CORPUSCULAR HGB CONC 33.9 g/dL (33.0-35.0); MEAN CORPUSCULAR VOLUME 84.5 fL (80.0-100.0); MEAN PLATELET VOLUME 9.3 fL (7.4-11.0); MONOCYTES % (AUTO) 6.5 % (0.0-13.0); PLATELET COUNT 217 X10^3/uL (150.0-450.0); RED BLOOD COUNT 4.63 X10^6/uL (4.7-6.0); RED CELL DISTRIBUTION WIDTH 13.8 % (11.6-16.5)
[2017-04-29 05:01] LABS: ALANINE AMINOTRANSFERASE 25 Units/L (12-78); ALBUMIN 2.4 g/dL (3.4-5.0); ALKALINE PHOSPHATASE 105 Units/L (46-116); ASPARTATE AMINO TRANSFERASE 19 Units/L (15-37); COR CA(FOR HYPOALB) 10.6 mg/dL (8.5-10.1); TOTAL PROTEIN 6.9 g/dL (6.4-8.2)
[2017-04-29] MEDS: HumuLIN R SUBCUT PRN ×4 (05:37→22:31)
[2017-04-29] MEDS: NEURONTIN CAP 400 MG PO SCH ×3 (05:38→21:09)
[2017-04-29] MEDS ORDERED: MILK OF MAGNESIA PO PRN (07:36)
[2017-04-29] MEDS ORDERED: COLACE CAP 100 MG PO PRN (07:36)
[2017-04-29] MEDS: COZAAR PO SCH (09:34)
[2017-04-29] MEDS: ROCEPHIN 1 GM IV PREMIX 1 GM/50 ML IV.SOLN. IV SCH (09:35)
[2017-04-29] MEDS: JANUVIA PO SCH (09:35)
[2017-04-29] MEDS: ZYVOX 600MG IV 600 MG/300 ML BAG IV SCH ×2 (12:25→21:10)
[2017-04-29] MEDS: NORCO 5/325 MG TAB PO PRN (15:07)
--- NOTE | 2017-04-29 17:48 | CT ---
History: Shortness of breath and cough Study: CT thorax with IV contrast. Sagittal and coronal reformations were provided. Comparison: None Findings: There is prominent bronchiectasis in the lower lobes, right worse than left. There is perip heral increased interstitial lung markings. There are small cavitary lesions her range than array in the lingula with the largest peripheral laterally measuring 2.5 cm AP diameter. There is no significa nt effusion. There is 1.6 cm diameter inferior right hilar adenopathy and 1.6 cm left hilar adenopath y. There are enlarged lymph nodes in the aortopulmonary window measuring up to 2 cm diameter. There a re multiple small middle mediastinal lymph nodes. The visualized upper abdomen shows a small faintly calcified gallstone in the neck of the gallbladder. The gallbladder is not distended. There multiple peripheral cystic lesions bilaterally. Impression: 1. Bilateral lower lobe, right worse than left, bronchiectasis 2. An array of cavitary lesions in the lingula that may represent a cavitary multifocal pneumonia. 3. Mild bilateral hilar and mediastinal adenopathy 4. Diffuse peripheral increased interstitial markings likely representing pulmonary fibrosis. Reported By:
[2017-04-29] MEDS: NS 1000 ML 1,000 ML IV SCH (21:02)
[2017-04-29] MEDS: ZANAFLEX PO SCH (21:09)
[2017-04-29] MEDS: RESTORIL CAP 15 MG PO PRN (21:09)
[2017-04-29] MEDS: SNACK - Diabetic Appropriate PO SCH (21:12)
[2017-04-30] MEDS: DUONEB 0.5 MG/3 MG NEB SCH ×6 (00:33→20:47)
[2017-04-30] MEDS: SOLU-Medrol 40 MG VIAL IVP SCH (01:20)
[2017-04-30] MEDS: NEURONTIN CAP 400 MG PO SCH ×4 (05:21→22:54)
[2017-04-30 06:10] LABS: ALANINE AMINOTRANSFERASE 26 Units/L (12-78); ALBUMIN 2.3 g/dL (3.4-5.0); ALKALINE PHOSPHATASE 114 Units/L (46-116); ASPARTATE AMINO TRANSFERASE 18 Units/L (15-37); BLOOD UREA NITROGEN 25 mg/dL (7-18); CALCIUM 8.7 mg/dL (8.5-10.1); CARBON DIOXIDE 26.3 mmol/L (21-32); CHLORIDE 99 mmol/L (98-107); COR CA(FOR HYPOALB) 10.1 mg/dL (8.5-10.1); COR NA(FOR HYPERGLY) 139 mmol/L (136-145); CREATININE 0.97 mg/dL (0.70-1.30); SODIUM 134 mmol/L (136-145); TOTAL PROTEIN 6.8 g/dL (6.4-8.2); eGFR BLACK RACES > 60 (>60); eGFR NON BLACK RACES > 60 (>60)
[2017-04-30 06:42] LABS: BASOPHILS % (AUTO) 0.2 % (0.2-1.0); EOSINOPHILS % (AUTO) 0.1 % (0.9-2.9); HEMATOCRIT 41.2 % (42.0-54.0); HEMOGLOBIN 13.9 g/dL (13.5-18.0); LYMPHOCYTES # (AUTO) 1.1 X10^3/uL (1.3-2.9); LYMPHOCYTES % (AUTO) 7.9 % (21.0-51.0); MEAN CORPUSCULAR HEMOGLOBIN 28.6 pg (27.0-34.0); MEAN CORPUSCULAR HGB CONC 33.8 g/dL (33.0-35.0); MEAN CORPUSCULAR VOLUME 84.7 fL (80.0-100.0); MEAN PLATELET VOLUME 9.5 fL (7.4-11.0); MONOCYTES # (AUTO) 0.8 x10^3/uL (0.3-0.8); MONOCYTES % (AUTO) 5.6 % (0.0-13.0); NEUTROPHILS # (AUTO) 11.9 x10^3/uL (2.2-4.8); NEUTROPHILS % (AUTO) 86.2 % (42.0-75.0); PLATELET COUNT 211 X10^3/uL (150.0-450.0); RED BLOOD COUNT 4.87 X10^6/uL (4.7-6.0); RED CELL DISTRIBUTION WIDTH 13.9 % (11.6-16.5); WHITE BLOOD COUNT 13.8 X10^3/uL (3.6-10.0)
[2017-04-30] MEDS: JANUVIA PO SCH (09:26)
[2017-04-30] MEDS: ZYVOX 600MG IV 600 MG/300 ML BAG IV SCH ×2 (09:26→22:53)
[2017-04-30] MEDS: COZAAR PO SCH (09:27)
[2017-04-30] MEDS: HumuLIN R SUBCUT PRN ×2 (12:30→16:39)
[2017-04-30] MEDS: ZANAFLEX PO SCH (20:53)
[2017-04-30] MEDS: RESTORIL CAP 15 MG PO PRN (20:53)
[2017-04-30] MEDS: NS 1000 ML 1,000 ML IV SCH (22:53)
[2017-04-30] MEDS: SNACK - Diabetic Appropriate PO SCH (22:53)
[2017-05-01] MEDS: DUONEB 0.5 MG/3 MG NEB SCH ×6 (01:11→20:44)
[2017-05-01 04:45] LABS: BASOPHILS % (AUTO) 0.3 % (0.2-1.0); EOSINOPHILS # (AUTO) 0.1 x10^3/uL (0.0-0.2); EOSINOPHILS % (AUTO) 0.9 % (0.9-2.9); HEMATOCRIT 42.1 % (42.0-54.0); LYMPHOCYTES # (AUTO) 2.7 X10^3/uL (1.3-2.9); LYMPHOCYTES % (AUTO) 18.6 % (21.0-51.0); MEAN CORPUSCULAR HEMOGLOBIN 28.3 pg (27.0-34.0); MEAN CORPUSCULAR HGB CONC 33.2 g/dL (33.0-35.0); MEAN CORPUSCULAR VOLUME 85.3 fL (80.0-100.0); MEAN PLATELET VOLUME 8.9 fL (7.4-11.0); MONOCYTES # (AUTO) 1.1 x10^3/uL (0.3-0.8); MONOCYTES % (AUTO) 7.4 % (0.0-13.0); NEUTROPHILS # (AUTO) 10.5 x10^3/uL (2.2-4.8); NEUTROPHILS % (AUTO) 72.8 % (42.0-75.0); PLATELET COUNT 150 X10^3/uL (150.0-450.0); RED BLOOD COUNT 4.93 X10^6/uL (4.7-6.0); RED CELL DISTRIBUTION WIDTH 13.9 % (11.6-16.5); WHITE BLOOD COUNT 14.4 X10^3/uL (3.6-10.0)
[2017-05-01 05:05] LABS: ALANINE AMINOTRANSFERASE 25 Units/L (12-78); ALBUMIN 2.3 g/dL (3.4-5.0); ALKALINE PHOSPHATASE 97 Units/L (46-116); ASPARTATE AMINO TRANSFERASE 19 Units/L (15-37); BLOOD UREA NITROGEN 28 mg/dL (7-18); CALCIUM 8.4 mg/dL (8.5-10.1); CARBON DIOXIDE 25.1 mmol/L (21-32); CHLORIDE 98 mmol/L (98-107); COR CA(FOR HYPOALB) 9.8 mg/dL (8.5-10.1); COR NA(FOR HYPERGLY) 136 mmol/L (136-145); SODIUM 133 mmol/L (136-145); TOTAL PROTEIN 6.3 g/dL (6.4-8.2); eGFR BLACK RACES > 60 (>60); eGFR NON BLACK RACES > 60 (>60)
[2017-05-01 05:17] LABS: BAND NEUTROPHILS % 6 % (0-10); PLATELET MORPHOLOGY COMMENT NORMAL (NORMAL)
[2017-05-01] MEDS: NEURONTIN CAP 400 MG PO SCH ×3 (05:20→20:59)
[2017-05-01] MEDS: HumuLIN R SUBCUT PRN ×4 (06:02→20:59)
--- NOTE | 2017-05-01 07:53 | CT ---
HISTORY: Follow-up pneumonia Study: CT chest with contrast Comparison: 04/29/2017 Technique: Axial post-contrast images with coronal and sagittal reformats. Dose reduction procedures were used with mA/kv adjusted for body size. Findings: Examination of the mediastinum demonstrated no evidence for mediastinal masses. There is enlarged AP window lymphadenopathy present. The largest node measures 2.5 by 1.2 cm. Bilateral hilar adenopathy i s present including a a 1.3 cm left hilar node which demonstrates a lucent center possibly indicating central necrosis. No pleural effusions are identified. No chest wall or axillary abnormality is iden tified. Those portions of the upper abdominal organs visualized were within normal limits with the ex ception of cholelithiasis. Examination of the lung burgos again demonstrate some apical pleural paren chymal scarring on the right, stable. There is peripheral interstitial lung disease throughout both l ungs most prominent in the lower lobes where there is honeycombing present. This suggests pulmonary f ibrosis. Bronchiectasis is present in the lower lobes bilaterally and in the right upper lobe. Peribr onchial infiltrate is present in the left upper lobe. The previously noted left mid lung cavitary les ions are again identified but have become more confluent with increasing central cavitation. This may represent cavitary pneumonia, granulomatous disease, or combination of cavitary pneumonia and cavita ting neoplasm. The previously noted adenopathy could be reactive or metastatic. The largest cavitary lesion now measures 3.7 by 2.7 cm. IMPRESSION: Now confluent cavitary lesions in the left mid lung be coming more confluent and increasing in size s annmarie the prior examination. This could represent cavitary bacterial pneumonia, cavitary granulomatous disease, or combination of cavitary pneumonia and cavitating neoplasm Bilateral lower lobe and right upper lobe bronchiectasis Pulmonary fibrosis Mediastinal and hilar adenopathy as described unchanged from the prior examination Cholelithiasis Reported By:
[2017-05-01] MEDS: COZAAR PO SCH (09:40)
[2017-05-01] MEDS: ZYVOX 600MG IV 600 MG/300 ML BAG IV SCH ×2 (09:41→20:52)
[2017-05-01] MEDS: JANUVIA PO SCH (09:41)
[2017-05-01] MEDS: ZANAFLEX PO SCH (20:52)
[2017-05-01] MEDS: NS 1000 ML 1,000 ML IV SCH (20:52)
[2017-05-01] MEDS: SNACK - Diabetic Appropriate PO SCH (20:59)
[2017-05-02] MEDS: DUONEB 0.5 MG/3 MG NEB SCH ×6 (00:38→20:50)
[2017-05-02] MEDS: NEURONTIN CAP 400 MG PO SCH ×3 (05:17→21:11)
[2017-05-02] MEDS: HumuLIN R SUBCUT PRN ×3 (05:40→20:31)
[2017-05-02 05:56] LABS: ALANINE AMINOTRANSFERASE 23 Units/L (12-78); ALBUMIN 2.2 g/dL (3.4-5.0); ALKALINE PHOSPHATASE 88 Units/L (46-116); ASPARTATE AMINO TRANSFERASE 17 Units/L (15-37); BLOOD UREA NITROGEN 20 mg/dL (7-18); CALCIUM 8.2 mg/dL (8.5-10.1); CARBON DIOXIDE 27.3 mmol/L (21-32); CHLORIDE 97 mmol/L (98-107); COR CA(FOR HYPOALB) 9.6 mg/dL (8.5-10.1); COR NA(FOR HYPERGLY) 135 mmol/L (136-145); CREATININE 0.94 mg/dL (0.70-1.30); SODIUM 131 mmol/L (136-145); TOTAL PROTEIN 6.2 g/dL (6.4-8.2); eGFR BLACK RACES > 60 (>60); eGFR NON BLACK RACES > 60 (>60)
[2017-05-02 06:08] LABS: BASOPHILS % (AUTO) 0.2 % (0.2-1.0); EOSINOPHILS # (AUTO) 0.3 x10^3/uL (0.0-0.2); EOSINOPHILS % (AUTO) 1.7 % (0.9-2.9); HEMATOCRIT 41.8 % (42.0-54.0); LYMPHOCYTES # (AUTO) 1.9 X10^3/uL (1.3-2.9); MEAN CORPUSCULAR HEMOGLOBIN 28.4 pg (27.0-34.0); MEAN CORPUSCULAR HGB CONC 33.6 g/dL (33.0-35.0); MEAN CORPUSCULAR VOLUME 84.3 fL (80.0-100.0); MEAN PLATELET VOLUME 9.2 fL (7.4-11.0); MONOCYTES # (AUTO) 0.9 x10^3/uL (0.3-0.8); MONOCYTES % (AUTO) 6.3 % (0.0-13.0); NEUTROPHILS # (AUTO) 11.8 x10^3/uL (2.2-4.8); NEUTROPHILS % (AUTO) 78.8 % (42.0-75.0); PLATELET COUNT 181 X10^3/uL (150.0-450.0); RED BLOOD COUNT 4.95 X10^6/uL (4.7-6.0); RED CELL DISTRIBUTION WIDTH 14.4 % (11.6-16.5)
[2017-05-02] MEDS: ZYVOX 600MG IV 600 MG/300 ML BAG IV SCH ×2 (09:51→20:32)
[2017-05-02] MEDS: JANUVIA PO SCH (09:51)
[2017-05-02] MEDS: COZAAR PO SCH (09:51)
[2017-05-02] MEDS: ZANAFLEX PO SCH (20:30)
[2017-05-02] MEDS: NS 1000 ML 1,000 ML IV SCH (20:30)
[2017-05-02] MEDS: SNACK - Diabetic Appropriate PO SCH (20:32)
[2017-05-02] MEDS: ROBITUSSIN DM PO PRN (23:22)
[2017-05-03] MEDS: DUONEB 0.5 MG/3 MG NEB SCH ×6 (00:35→21:35)
[2017-05-03] MEDS: NEURONTIN CAP 400 MG PO SCH ×3 (05:37→22:12)
[2017-05-03] MEDS: HumuLIN R SUBCUT PRN ×4 (05:37→22:12)
[2017-05-03 05:38] LABS: ALANINE AMINOTRANSFERASE 24 Units/L (12-78); ALKALINE PHOSPHATASE 82 Units/L (46-116); ASPARTATE AMINO TRANSFERASE 19 Units/L (15-37); BLOOD UREA NITROGEN 21 mg/dL (7-18); CALCIUM 8.2 mg/dL (8.5-10.1); CARBON DIOXIDE 24.9 mmol/L (21-32); CHLORIDE 99 mmol/L (98-107); COR CA(FOR HYPOALB) 9.8 mg/dL (8.5-10.1); COR NA(FOR HYPERGLY) 134 mmol/L (136-145); CREATININE 0.86 mg/dL (0.70-1.30); SODIUM 132 mmol/L (136-145); TOTAL PROTEIN 6.2 g/dL (6.4-8.2); eGFR BLACK RACES > 60 (>60); eGFR NON BLACK RACES > 60 (>60)
[2017-05-03 06:56] LABS: BASOPHILS # (AUTO) 0.1 X10^3/uL (0.0-0.1); BASOPHILS % (AUTO) 0.5 % (0.2-1.0); EOSINOPHILS # (AUTO) 0.3 x10^3/uL (0.0-0.2); EOSINOPHILS % (AUTO) 1.6 % (0.9-2.9); HEMATOCRIT 41.6 % (42.0-54.0); LYMPHOCYTES # (AUTO) 1.9 X10^3/uL (1.3-2.9); LYMPHOCYTES % (AUTO) 10.3 % (21.0-51.0); MEAN CORPUSCULAR HEMOGLOBIN 28.5 pg (27.0-34.0); MEAN CORPUSCULAR HGB CONC 33.6 g/dL (33.0-35.0); MEAN CORPUSCULAR VOLUME 84.7 fL (80.0-100.0); MEAN PLATELET VOLUME 9.7 fL (7.4-11.0); MONOCYTES # (AUTO) 1.2 x10^3/uL (0.3-0.8); MONOCYTES % (AUTO) 6.5 % (0.0-13.0); NEUTROPHILS # (AUTO) 14.7 x10^3/uL (2.2-4.8); NEUTROPHILS % (AUTO) 81.1 % (42.0-75.0); PLATELET COUNT 161 X10^3/uL (150.0-450.0); RED BLOOD COUNT 4.91 X10^6/uL (4.7-6.0); RED CELL DISTRIBUTION WIDTH 14.1 % (11.6-16.5); WHITE BLOOD COUNT 18.2 X10^3/uL (3.6-10.0)
[2017-05-03] MEDS: JANUVIA PO SCH (10:00)
[2017-05-03] MEDS: ZYVOX 600MG IV 600 MG/300 ML BAG IV SCH ×2 (10:00→22:11)
[2017-05-03] MEDS: COZAAR PO SCH (10:00)
[2017-05-03] MEDS: SNACK - Diabetic Appropriate PO SCH (22:11)
[2017-05-03] MEDS: RESTORIL CAP 15 MG PO PRN (22:12)
[2017-05-03] MEDS: NS 1000 ML 1,000 ML IV SCH (22:12)
[2017-05-03] MEDS: NORCO 5/325 MG TAB PO PRN (22:12)
[2017-05-03] MEDS: ZANAFLEX PO SCH (22:12)
[2017-05-04] MEDS: DUONEB 0.5 MG/3 MG NEB SCH ×6 (00:20→20:22)
[2017-05-04] MEDS: NEURONTIN CAP 400 MG PO SCH ×3 (05:57→21:52)
[2017-05-04 06:20] LABS: BASOPHILS % (AUTO) 0.1 % (0.2-1.0); EOSINOPHILS # (AUTO) 0.2 x10^3/uL (0.0-0.2); EOSINOPHILS % (AUTO) 1.7 % (0.9-2.9); HEMATOCRIT 41.2 % (42.0-54.0); HEMOGLOBIN 13.4 g/dL (13.5-18.0); LYMPHOCYTES # (AUTO) 1.6 X10^3/uL (1.3-2.9); LYMPHOCYTES % (AUTO) 10.8 % (21.0-51.0); MEAN CORPUSCULAR HEMOGLOBIN 27.7 pg (27.0-34.0); MEAN CORPUSCULAR HGB CONC 32.6 g/dL (33.0-35.0); MEAN PLATELET VOLUME 9.1 fL (7.4-11.0); MONOCYTES % (AUTO) 6.8 % (0.0-13.0); NEUTROPHILS # (AUTO) 11.7 x10^3/uL (2.2-4.8); NEUTROPHILS % (AUTO) 80.6 % (42.0-75.0); PLATELET COUNT 156 X10^3/uL (150.0-450.0); RED BLOOD COUNT 4.85 X10^6/uL (4.7-6.0); RED CELL DISTRIBUTION WIDTH 13.7 % (11.6-16.5); WHITE BLOOD COUNT 14.5 X10^3/uL (3.6-10.0)
[2017-05-04 07:12] LABS: ALANINE AMINOTRANSFERASE 28 Units/L (12-78); ALBUMIN 2.2 g/dL (3.4-5.0); ALKALINE PHOSPHATASE 84 Units/L (46-116); ASPARTATE AMINO TRANSFERASE 24 Units/L (15-37); BLOOD UREA NITROGEN 19 mg/dL (7-18); CALCIUM 8.8 mg/dL (8.5-10.1); CARBON DIOXIDE 23.7 mmol/L (21-32); CHLORIDE 99 mmol/L (98-107); COR CA(FOR HYPOALB) 10.2 mg/dL (8.5-10.1); COR NA(FOR HYPERGLY) 134 mmol/L (136-145); SODIUM 132 mmol/L (136-145); TOTAL PROTEIN 6.5 g/dL (6.4-8.2); eGFR BLACK RACES > 60 (>60); eGFR NON BLACK RACES > 60 (>60)
--- NOTE | 2017-05-04 08:46 | RAD ---
Examination: AP chest History: COPD Comparison reference: 04/28/2017 Findings: Stable heart size with persistent widening of the mediastinum and extensive bilateral inter stitial infiltrates. There is no evidence for developing consolidation, pneumothorax or large pleural effusion. Impression: No significant interval change demonstrated, considering AP projection. Reported By:
[2017-05-04] MEDS: COZAAR PO SCH (09:33)
[2017-05-04] MEDS: JANUVIA PO SCH (09:33)
[2017-05-04] MEDS: NORCO 5/325 MG TAB PO PRN ×2 (09:34→21:52)
[2017-05-04] MEDS: ZYVOX 600MG IV 600 MG/300 ML BAG IV SCH ×2 (09:34→21:50)
[2017-05-04] MEDS: HumuLIN R SUBCUT PRN ×3 (12:11→22:01)
[2017-05-04] MEDS: NS 1000 ML 1,000 ML IV SCH ×2 (17:03→21:53)
[2017-05-04] MEDS: ZANAFLEX PO SCH (21:52)
[2017-05-04] MEDS: RESTORIL CAP 15 MG PO PRN (21:52)
[2017-05-04] MEDS: SNACK - Diabetic Appropriate PO SCH (21:53)
[2017-05-05] MEDS: DUONEB 0.5 MG/3 MG NEB SCH ×5 (00:41→16:25)
[2017-05-05] MEDS: NEURONTIN CAP 400 MG PO SCH ×2 (05:46→13:38)
[2017-05-05 07:17] LABS: BASOPHILS % (AUTO) 0.2 % (0.2-1.0); EOSINOPHILS # (AUTO) 0.2 x10^3/uL (0.0-0.2); EOSINOPHILS % (AUTO) 1.6 % (0.9-2.9); HEMATOCRIT 38.6 % (42.0-54.0); LYMPHOCYTES # (AUTO) 1.1 X10^3/uL (1.3-2.9); LYMPHOCYTES % (AUTO) 8.8 % (21.0-51.0); MEAN CORPUSCULAR HEMOGLOBIN 28.4 pg (27.0-34.0); MEAN CORPUSCULAR HGB CONC 33.7 g/dL (33.0-35.0); MEAN CORPUSCULAR VOLUME 84.3 fL (80.0-100.0); MEAN PLATELET VOLUME 8.5 fL (7.4-11.0); MONOCYTES # (AUTO) 0.9 x10^3/uL (0.3-0.8); NEUTROPHILS # (AUTO) 10.3 x10^3/uL (2.2-4.8); NEUTROPHILS % (AUTO) 82.4 % (42.0-75.0); PLATELET COUNT 168 X10^3/uL (150.0-450.0); RED BLOOD COUNT 4.58 X10^6/uL (4.7-6.0); RED CELL DISTRIBUTION WIDTH 13.9 % (11.6-16.5); WHITE BLOOD COUNT 12.5 X10^3/uL (3.6-10.0)
[2017-05-05 07:40] LABS: ALANINE AMINOTRANSFERASE 27 Units/L (12-78); ALBUMIN 2.1 g/dL (3.4-5.0); ALKALINE PHOSPHATASE 81 Units/L (46-116); ASPARTATE AMINO TRANSFERASE 20 Units/L (15-37); BLOOD UREA NITROGEN 15 mg/dL (7-18); CALCIUM 8.5 mg/dL (8.5-10.1); CARBON DIOXIDE 25.7 mmol/L (21-32); CHLORIDE 100 mmol/L (98-107); COR NA(FOR HYPERGLY) 135 mmol/L (136-145); CREATININE 0.89 mg/dL (0.70-1.30); SODIUM 132 mmol/L (136-145); TOTAL PROTEIN 6.5 g/dL (6.4-8.2); eGFR BLACK RACES > 60 (>60); eGFR NON BLACK RACES > 60 (>60)
[2017-05-05] MEDS: COZAAR PO SCH (09:45)
[2017-05-05] MEDS: ZYVOX 600MG IV 600 MG/300 ML BAG IV SCH (09:45)
[2017-05-05] MEDS: JANUVIA PO SCH (09:45)
--- NOTE | 2017-05-05 10:03 | RAD ---
HISTORY: 72-year-old male with bronchitis. Study: Frontal view of the chest. Comparison: Chest radiograph 05/04/2017 in 11/2022 17. Findings: Surgical clips unchanged. The trachea is midline. The cardiac silhouette is stable. Diffuse, chronic reticular nodular inters titial disease. No large effusion or pneumothorax. Soft tissues are unremarkable. Osseous structures are unremarkable. IMPRESSION: 1. No acute cardiopulmonary disease with severe, chronic diffuse interstitial disease. Reported By:
[2017-05-05] MEDS: HumuLIN R SUBCUT PRN ×2 (12:16→17:24)
[2017-05-05 16:53] VITALS: BP 147/70
[2017-05-05] MEDS ORDERED: LEVAQUIN PREMIX IV 500 MG 500 MG/100 ML BAG IV SCH (17:00)
== END 2017-05-05 20:05 | disposition short-term general hospital (02) | DRG 204 ==
LOC: ER 15:10 → MED/SURG 18:50
PROVIDERS: ADMIT Internal Medicine; ATTEND Internal Medicine
PROC: 3E0234Z Introduction of Serum, Toxoid and Vaccine into Muscle, Percutaneous Approach (ICD-10-PCS; principal; 2017-04-26)
DX: R06.03 Acute respiratory distress (principal); J15.212 Pneumonia due to Methicillin resistant Staphylococcus aureus; R07.2 Precordial pain; J40 Bronchitis, not specified as acute or chronic; E11.65 Type 2 diabetes mellitus with hyperglycemia; R06.02 Shortness of breath; R53.1 Weakness; I10 Essential (primary) hypertension; F41.8 Other specified anxiety disorders; M13.89 Other specified arthritis, multiple sites; R94.31 Abnormal electrocardiogram [ECG] [EKG]; Z23 Encounter for immunization
CPT/HCPCS: 36415; 71010; 71020; 71260; 80053; 82550; 82553; 83735; 84484; 85025; 85610; 85730; 87040; 87070; 87077; 87186; 87205; 90686; 93005; 94640; 94760; 96365; 96374; 96375; 99221; 99231; 99284; A4216; A4222; J0696; J1815; J1956; J2020; J2920; J2930; J7620

== ENCOUNTER → 2017-06-24 | Outpatient (CLI) | payer OTHER ==
--- NOTE | 2017-06-25 09:33 | CT ---
CT CHEST WITHOUT IV CONTRAST HISTORY: Interstitial lung disease Comparison: 09/24/2012 Technique: Multiple axial images of the chest were obtained from the thoracic inlet to the upper abdo men. Dose reduction techniques including Automated Exposure Control (AEC) and adjustment of mA and kV were utlized. Findings: The evaluation of the mediastinal structures is diminished without the use of IV contrast. The heart is normal in size. No pericardial effusion. Shotty mediastinal lymphadenopathy which is si milar prior. No focal consolidations, pleural effusions or pneumothorax. Redemonstration of diffuse, peripheral ba silar fibrosis include architectural distortion, interlobular septal thickening, traction bronchiecta sis and worsening honeycombing. Airways are patent. Gallstones within the gallbladder. No evidence of gallbladder inflammation.. No aggressive osseous lesions. IMPRESSION: 1. Evidence of a pulmonary fibrosis (UIP pattern) which has progressed from prior. Reported By:
== END | disposition home or self-care (01) | DRG 198 ==
LOC: RAD 10:44
PROVIDERS: ATTEND Internal Medicine
DX: J84.89 Other specified interstitial pulmonary diseases (principal); J84.10 Pulmonary fibrosis, unspecified
CPT/HCPCS: 71250

== ENCOUNTER 2017-09-18 18:46 | Emergency (ER) | payer OTHER ==
[2017-09-18 18:50] VITALS: BP 139/64; BMI 24.4
[2017-09-18] MEDS ORDERED: DECADRON INJ IM ONE (21:57)
--- NOTE | 2017-09-18 21:57 | DR.GENAD ---
HPI - PCP Primary Care Physician: none - Complaint/Symptoms Chief Complaint Doctors Comments: Patient presents with complaint of left ear pain and knuckles of hands are warm from arthritis. He has not had any medication because he has been too busy trying to get a motorized chair. Chief Complaint:: "left ear hurting since yesterday" - Source History Provided: Patient - Mode of Arrival Mode of Arrival: Ambulatory - Timing Onset of Chief Complaint: 09/17/17 PMH - PMH Past Medical History: Yes Past Medical History: Anxiety, Arthritis, COPD, Depression, Diabetes, Hypertension, Kidney Stones Past Surgical History: Yes Surgical History: Appendectomy, Bowel Resection - Family History History of Family Medical Conditions: Yes Family Medical History: Diabetes Mellitus, [place], Coronary Artery Disease, Heart Failure, Sudden Cardiac , Hypertension - Social History Does patient currently use any type of tobacco product: No Have you used tobacco products in the last 12 months: No Type of Tobacco Use: None Does any household member use tobacco: No Alcohol Use: None Do you use any recreational Drugs:: No Lives With: Family Lives Where: Home - infectious screening In the last 2 months have you had wt loss of >10#?: NO Have you had fever, night sweats or hemotysis?: No Have you traveled outside the country in the last 6 months?: No Isolation: Standard ROS - Review of Systems Eyes: No Symptoms Reported ENTM: No Symptoms Reported Respiratoy: No Symptoms Reported Cardiovascular: No Symptoms Reported Gastrointestinal/Abdominal: No Symptoms Reported Genitourinary: No Symptoms Reported Neurological: No Symptoms Reported Musculoskeletal: Hand Integumentary: No Symptoms Reported Hematologic/Lymphatic: No Symptoms Reported Endocrine: No Symptoms Reported Psychiatric: No Symptoms Reported All Other Systems: Reviewed and Negative PE - Vital Signs Vitals: Temperature 97.8 F Pulse Rate 100 Respiratory Rate 18 Blood Pressure [Right Arm] 147/70 Blood Pressure [Left Arm] 188/80 Blood Pressure 139/64 O2 Sat by Pulse Oximetry 90 - General General Appearance: Alert, In No Apparent Distress - Head Head Exam: Normal Inspection, Atraumatic - Eyes Eye exam: Normal Appearance, PERRL, EOMI - ENT ENT Exam: Normal Exam, TM's Normal Bilaterally External Ear Exam: Normal External Inspection. negative: Pain with Movement TM/Canal Exam: Bilateral Normal Nose Exam: Normal Nose Exam Mouth Exam: Normal Inspection Throat Exam: Normal Inspection - Neck Neck Exam: Normal Inspection - Chest Chest Inspection: Normal Inspection - Respiratory Respiratory Exam: Normal Lung Sounds Bilat Respiratory Exam: Bilateral Clear to Auscultation - Cardiovascular Cardiovascular Exam: Regular Rate, Normal Rhythm - Abdominal Exam Abdominal Exam: Normal Inspection Abdominal Tenderness: negative: RUQ, RLQ, LUQ, LLQ, Epigastrium, Suprapubic, Diffuse, Mild, Moderate, Severe, Other - Extremities Extremities Exam: Tenderness (tenderness of knuckles and other joints) - Back Back Exam: Normal Inspection - Neurologic Neurological Exam: Alert, Oriented X3, CN II-XII Intact - Diagnosis Discharge Problem: Otalgia of left ear, Arthritis - Discharge Plan Condition: Stable - Follow ups/Referrals Follow ups/Referrals: N[facility],None [Primary Care Provider] - 3 days - Instructions
== END 2017-09-18 22:13 | disposition home or self-care (01) ==
LOC: ER 18:56
DX: H92.02 Otalgia, left ear (principal); M19.90 Unspecified osteoarthritis, unspecified site
CPT/HCPCS: 96372; 99282; J1100

== ENCOUNTER → 2017-10-01 | Outpatient (CLI) | payer OTHER ==
[2017-09-18 18:50] VITALS: BP 139/64
[2017-10-01 14:23] LABS: BASOPHILS # (AUTO) 0.1 X10^3/uL (0.0-0.1); BASOPHILS % (AUTO) 0.4 % (0.2-1.0); EOSINOPHILS # (AUTO) 0.1 x10^3/uL (0.0-0.2); EOSINOPHILS % (AUTO) 0.6 % (0.9-2.9); HEMATOCRIT 42.7 % (42.0-54.0); HEMOGLOBIN 14.4 g/dL (13.5-18.0); LYMPHOCYTES # (AUTO) 1.3 X10^3/uL (1.3-2.9); LYMPHOCYTES % (AUTO) 8.2 % (21.0-51.0); MEAN CORPUSCULAR HEMOGLOBIN 26.4 pg (27.0-34.0); MEAN CORPUSCULAR HGB CONC 33.8 g/dL (33.0-35.0); MEAN CORPUSCULAR VOLUME 78.1 fL (80.0-100.0); MEAN PLATELET VOLUME 8.2 fL (7.4-11.0); MONOCYTES # (AUTO) 0.7 x10^3/uL (0.3-0.8); MONOCYTES % (AUTO) 4.4 % (0.0-13.0); NEUTROPHILS # (AUTO) 13.5 x10^3/uL (2.2-4.8); NEUTROPHILS % (AUTO) 86.4 % (42.0-75.0); PLATELET COUNT 219 X10^3/uL (150.0-450.0); RED BLOOD COUNT 5.47 X10^6/uL (4.7-6.0); RED CELL DISTRIBUTION WIDTH 14.7 % (11.6-16.5); WHITE BLOOD COUNT 15.6 X10^3/uL (3.6-10.0)
[2017-10-01 14:37] LABS: ALANINE AMINOTRANSFERASE 21 Units/L (12-78); ALBUMIN 3.2 g/dL (3.4-5.0); ALKALINE PHOSPHATASE 116 Units/L (46-116); ASPARTATE AMINO TRANSFERASE 13 Units/L (15-37); BLOOD UREA NITROGEN 24 mg/dL (7-18); CALCIUM 9.2 mg/dL (8.5-10.1); CARBON DIOXIDE 29.6 mmol/L (21-32); CHLORIDE 96 mmol/L (98-107); COR CA(FOR HYPOALB) 9.8 mg/dL (8.5-10.1); COR NA(FOR HYPERGLY) 137 mmol/L (136-145); CREATININE 1.02 mg/dL (0.70-1.30); SODIUM 132 mmol/L (136-145); TOTAL PROTEIN 8.4 g/dL (6.4-8.2); eGFR BLACK RACES > 60 (>60); eGFR NON BLACK RACES > 60 (>60)
[2017-10-01 15:00] LABS: RHEUMATOID FACTOR POSITIVE (NEGATIVE)
== END ==
LOC: LAB 14:00
PROVIDERS: ATTEND Internal Medicine Sleep Medicine
DX: J84.10 Pulmonary fibrosis, unspecified (principal)
CPT/HCPCS: 36415; 80053; 85025; 86200; 86430

== ENCOUNTER 2018-11-03 12:26 | Inpatient (IN) ==
[2018-11-03] MEDS ORDERED: TUSSIONEX PENNKINETIC SUSP PO PRN (14:13)
[2018-11-03 14:50] LABS: BASOPHILS # (AUTO) 0.1 X10^3/uL (0.0-0.1); BASOPHILS % (AUTO) 0.6 % (0.2-1.0); EOSINOPHILS # (AUTO) 0.2 x10^3/uL (0.0-0.2); EOSINOPHILS % (AUTO) 1.7 % (0.9-2.9); HEMATOCRIT 43.9 % (42.0-54.0); HEMOGLOBIN 14.6 g/dL (13.5-18.0); LYMPHOCYTES # (AUTO) 1.1 X10^3/uL (1.3-2.9); LYMPHOCYTES % (AUTO) 9.5 % (21.0-51.0); MEAN CORPUSCULAR HGB CONC 33.3 g/dL (33.0-35.0); MEAN CORPUSCULAR VOLUME 87.2 fL (80.0-100.0); MEAN PLATELET VOLUME 8.1 fL (7.4-11.0); MONOCYTES # (AUTO) 1.3 x10^3/uL (0.3-0.8); MONOCYTES % (AUTO) 10.7 % (0.0-13.0); NEUTROPHILS # (AUTO) 9.2 x10^3/uL (2.2-4.8); NEUTROPHILS % (AUTO) 77.5 % (42.0-75.0); PLATELET COUNT 222 X10^3/uL (150.0-450.0); RED BLOOD COUNT 5.04 X10^6/uL (4.7-6.0); RED CELL DISTRIBUTION WIDTH 15.7 % (11.6-16.5); WHITE BLOOD COUNT 11.9 X10^3/uL (3.6-10.0)
[2018-11-03] MEDS: PROVENTIL NEB TX 0.083% 2.5MG/ 3ML NEB SCH ×3 (14:54→20:20)
[2018-11-03 15:03] LABS: ALANINE AMINOTRANSFERASE 11 Units/L (12-78); ALBUMIN 3.1 g/dL (3.4-5.0); ALKALINE PHOSPHATASE 100 Units/L (46-116); ASPARTATE AMINO TRANSFERASE 14 Units/L (15-37); BLOOD UREA NITROGEN 17 mg/dL (7-18); CARBON DIOXIDE 32.9 mmol/L (21-32); CHLORIDE 101 mmol/L (98-107); COR CA(FOR HYPOALB) 10.7 mg/dL (8.5-10.1); COR NA(FOR HYPERGLY) 140 mmol/L (136-145); CREATININE 1.02 mg/dL (0.70-1.30); SODIUM 139 mmol/L (136-145); TOTAL PROTEIN 8.1 g/dL (6.4-8.2); eGFR NON BLACK RACES > 60 (>60)
[2018-11-03] MEDS ORDERED: NS 1/2 1000 ML IV 1,000 ML ONE (15:03)
[2018-11-03] MEDS: NS 1/2 1000 ML IV 1,000 ML IV SCH (15:15)
[2018-11-03] MEDS: LEVAQUIN PREMIX IV 500 MG 500 MG/100 ML BAG IV SCH (15:22)
[2018-11-03] MEDS: VSL#3 PO SCH (15:22)
[2018-11-03] MEDS: FORTAZ or TAZICEF VIAL INJ IVP SCH ×2 (15:22→21:03)
[2018-11-03] MEDS ORDERED: KLOR-CON PO PRN (17:30)
[2018-11-03] MEDS ORDERED: MICRO K EXTEN CAP 10 MEQ PO PRN (17:30)
[2018-11-03] MEDS ORDERED: POTASSIUM CHL 40 MEQ/NS 0.45% 500 ML IV PRN (17:30)
[2018-11-03] MEDS ORDERED: POTASSIUM CHL 60 MEQ/NS 0.45% 500 ML IV PRN (17:30)
[2018-11-03] MEDS ORDERED: K-RIDER 10 MEQ/NS 100 ML 10 MEQ/100 ML BAG IV PRN (17:30)
[2018-11-03] MEDS ORDERED: POTASSIUM CHLORIDE LIQ 20 MEQ UDC PO PRN (17:30)
[2018-11-03] MEDS: ROBITUSSIN DM PO SCH ×2 (17:38→21:03)
[2018-11-03] MEDS: PULMICORT NEB TX 0.5 MG NEB SCH (20:20)
[2018-11-03] MEDS: K-DUR TAB 20 MEQ PO PRN (21:03)
[2018-11-03] MEDS: MAGNESIUM SULFATE 1 GRAM/100 mL PREMIX 1 GM/100 ML BAG IV PRN ×2 (21:04→22:27)
[2018-11-03 21:32] VITALS: BMI 30.9
[2018-11-03] MEDS ORDERED: STERILE WATER IRRIGATION IR ONE (22:42)
[2018-11-03] MEDS ORDERED: STERILE WATER IRRIGATION ONE (22:43)
[2018-11-04] MEDS: PROVENTIL NEB TX 0.083% 2.5MG/ 3ML NEB SCH ×6 (01:30→21:27)
[2018-11-04] MEDS: FORTAZ or TAZICEF VIAL INJ IVP SCH ×3 (05:32→21:11)
[2018-11-04 06:27] LABS: BASOPHILS % (AUTO) 0.4 % (0.2-1.0); EOSINOPHILS # (AUTO) 0.2 x10^3/uL (0.0-0.2); EOSINOPHILS % (AUTO) 1.7 % (0.9-2.9); HEMATOCRIT 38.3 % (42.0-54.0); HEMOGLOBIN 12.9 g/dL (13.5-18.0); LYMPHOCYTES # (AUTO) 0.9 X10^3/uL (1.3-2.9); LYMPHOCYTES % (AUTO) 8.8 % (21.0-51.0); MEAN CORPUSCULAR HGB CONC 33.6 g/dL (33.0-35.0); MEAN CORPUSCULAR VOLUME 86.3 fL (80.0-100.0); MEAN PLATELET VOLUME 7.9 fL (7.4-11.0); MONOCYTES # (AUTO) 1.1 x10^3/uL (0.3-0.8); MONOCYTES % (AUTO) 10.5 % (0.0-13.0); NEUTROPHILS # (AUTO) 8.2 x10^3/uL (2.2-4.8); NEUTROPHILS % (AUTO) 78.6 % (42.0-75.0); PLATELET COUNT 178 X10^3/uL (150.0-450.0); RED BLOOD COUNT 4.44 X10^6/uL (4.7-6.0); RED CELL DISTRIBUTION WIDTH 15.6 % (11.6-16.5); WHITE BLOOD COUNT 10.4 X10^3/uL (3.6-10.0)
--- NOTE | 2018-11-04 06:36 | RAD ---
HISTORY: Shortness of breath Study: Chest AP portable Comparison: 11/03/2018 Findings: The heart is within normal limits in size. Postsurgical changes are present in the right upper lobe with a suture line present along with right apical pleural thickening unchanged from the prior examination. Diffuse severe chronic interstitial lung disease is again identified not significantly changed in degree or distribution from the prior examination. No definite alveolar infiltrates are identified. A superimposed acute pneumonitis would be difficult to exclude in a patient with this degree of chronic interstitial lung disease. No pleural effusions are identified. The bony thorax is unremarkable. IMPRESSION: Severe diffuse chronic interstitial lung disease radiographically stable when compared with the prior examination Postsurgical changes on the right, stable Reported By:
[2018-11-04 06:39] LABS: ALANINE AMINOTRANSFERASE 11 Units/L (12-78); ALBUMIN 2.6 g/dL (3.4-5.0); ALKALINE PHOSPHATASE 92 Units/L (46-116); ASPARTATE AMINO TRANSFERASE 12 Units/L (15-37); BLOOD UREA NITROGEN 12 mg/dL (7-18); CALCIUM 9.1 mg/dL (8.5-10.1); CARBON DIOXIDE 30.4 mmol/L (21-32); CHLORIDE 100 mmol/L (98-107); COR CA(FOR HYPOALB) 10.2 mg/dL (8.5-10.1); COR NA(FOR HYPERGLY) 140 mmol/L (136-145); CREATININE 0.89 mg/dL (0.70-1.30); SODIUM 137 mmol/L (136-145); TOTAL PROTEIN 7.1 g/dL (6.4-8.2); eGFR NON BLACK RACES > 60 (>60)
--- NOTE | 2018-11-04 06:50 | RAD ---
HISTORY: Shortness of breath Study: Chest PA and lateral Comparison: 12/30/2017 Findings: Postsurgical changes are present on the right with a residual right apical pleural thickening, stable the heart is within normal limits in size. No congestive heart failure is noted. Severe diffuse bilateral chronic interstitial lung disease likely fibrotic is unchanged from the prior examination. No acute alveolar infiltrates are identified. A superimposed acute pneumonitis would be difficult to exclude in a patient with this degree of chronic change. No pleural effusions are identified. The bony thorax is unremarkable. IMPRESSION: Severe diffuse chronic interstitial lung disease likely fibrotic unchanged from the prior examination Postsurgical changes on the right with right apical pleural thickening, stable Reported By:
[2018-11-04] MEDS: LEVAQUIN PREMIX IV 500 MG 500 MG/100 ML BAG IV SCH (08:24)
[2018-11-04] MEDS: ROBITUSSIN DM PO SCH ×4 (08:24→21:10)
[2018-11-04] MEDS: MAGNESIUM SULFATE 1 GRAM/100 mL PREMIX 1 GM/100 ML BAG IV PRN (08:25)
[2018-11-04] MEDS: VSL#3 PO SCH (08:25)
[2018-11-04] MEDS: K-DUR TAB 20 MEQ PO PRN (08:25)
[2018-11-04] MEDS ORDERED: NS 1/2 1000 ML IV 1,000 ML ONE ×2 (08:40→16:53)
[2018-11-04] MEDS: PULMICORT NEB TX 0.5 MG NEB SCH ×2 (08:41→21:27)
[2018-11-04] MEDS: NS 1/2 1000 ML IV 1,000 ML IV SCH ×2 (09:00→21:10)
[2018-11-04] MEDS: HumuLIN R SUBCUT PRN ×2 (12:21→16:57)
[2018-11-04] MEDS ORDERED: PHARMACY CONSULT - DOSE _____ XX SCH (13:00)
[2018-11-04] MEDS: LOVENOX INJ 40 MG SYR SC SCH (14:00)
[2018-11-04] MEDS ORDERED: SNACK - Diabetic Appropriate PO SCH (20:00)
[2018-11-04] MEDS ORDERED: MOBIC TAB 15 MG PO PRN (20:39)
[2018-11-04] MEDS ORDERED: ZyrTEC TAB 10 MG PO PRN (20:39)
[2018-11-04] MEDS: KLONOPIN TAB 1 MG PO SCH (21:10)
[2018-11-04] MEDS: SENOKOT PO SCH (21:10)
[2018-11-04] MEDS: LOPRESSOR TAB 25 MG PO SCH (21:10)
[2018-11-04] MEDS: LANTUS SC SCH (21:11)
--- NOTE | 2018-11-04 21:13 | DR.UPDATE ---
H&P Update History and Physical Update: History and Physical reviewed and patient examined. Changes noted: Yes with the following: WAS SEEN IN THE OFFICE TODAY FOR COMPLAINTS OF FATIGUE, COUGH, CONGESTION, WHEEZING, AND DIZZINESS. HE WAS ADMITTED FOR FURTHER EVALUATION AND TREATMENT OF BRONCHOPNEUMONIA. HE WAS STARTED ON THE PNEUMONIA PROTOCOL WITH IV FORTAZ AND IV LEVAQUIN. ON ADMISSION, WE PLAN TO OBTAIN LABS AND CHEST XRAY. OTHERWISE, WE WILL CONTINUE TO MONITOR. NO OTHER CHANGES NOTED TO H&P.
[2018-11-04] MEDS: INSULIN ASPART U subcut SCH (21:18)
[2018-11-05] MEDS: PROVENTIL NEB TX 0.083% 2.5MG/ 3ML NEB SCH ×6 (01:45→20:35)
[2018-11-05 05:30] LABS: BASOPHILS % (AUTO) 0.4 % (0.2-1.0); EOSINOPHILS # (AUTO) 0.2 x10^3/uL (0.0-0.2); EOSINOPHILS % (AUTO) 2.3 % (0.9-2.9); HEMATOCRIT 37.8 % (42.0-54.0); HEMOGLOBIN 12.6 g/dL (13.5-18.0); LYMPHOCYTES # (AUTO) 0.8 X10^3/uL (1.3-2.9); LYMPHOCYTES % (AUTO) 8.2 % (21.0-51.0); MEAN CORPUSCULAR HGB CONC 33.2 g/dL (33.0-35.0); MEAN CORPUSCULAR VOLUME 87.2 fL (80.0-100.0); MEAN PLATELET VOLUME 8.3 fL (7.4-11.0); MONOCYTES # (AUTO) 1.4 x10^3/uL (0.3-0.8); MONOCYTES % (AUTO) 14.9 % (0.0-13.0); NEUTROPHILS # (AUTO) 6.9 x10^3/uL (2.2-4.8); NEUTROPHILS % (AUTO) 74.2 % (42.0-75.0); PLATELET COUNT 183 X10^3/uL (150.0-450.0); RED BLOOD COUNT 4.34 X10^6/uL (4.7-6.0); RED CELL DISTRIBUTION WIDTH 15.6 % (11.6-16.5); WHITE BLOOD COUNT 9.3 X10^3/uL (3.6-10.0)
[2018-11-05] MEDS: HumuLIN R SUBCUT PRN ×2 (05:34→11:29)
[2018-11-05] MEDS: FORTAZ or TAZICEF VIAL INJ IVP SCH ×3 (05:34→21:40)
[2018-11-05 05:35] LABS: ALANINE AMINOTRANSFERASE 9 Units/L (12-78); ALBUMIN 2.4 g/dL (3.4-5.0); ALKALINE PHOSPHATASE 75 Units/L (46-116); ASPARTATE AMINO TRANSFERASE 10 Units/L (15-37); BLOOD UREA NITROGEN 5 mg/dL (7-18); CALCIUM 9.1 mg/dL (8.5-10.1); CARBON DIOXIDE 33.4 mmol/L (21-32); CHLORIDE 101 mmol/L (98-107); COR CA(FOR HYPOALB) 10.4 mg/dL (8.5-10.1); COR NA(FOR HYPERGLY) 140 mmol/L (136-145); SODIUM 137 mmol/L (136-145); TOTAL PROTEIN 6.7 g/dL (6.4-8.2); eGFR NON BLACK RACES > 60 (>60)
[2018-11-05] MEDS: MAGNESIUM SULFATE 1 GRAM/100 mL PREMIX 1 GM/100 ML BAG IV PRN (06:16)
--- NOTE | 2018-11-05 06:28 | RAD ---
HISTORY: Shortness of breath Study: Chest AP portable Comparison: 11/04/2018 Findings: The heart is upper limits normal in size. No definite congestive heart failure is noted. Postsurgical changes are present in the right upper lobe where there is also some apical pleural thickening. Severe diffuse chronic interstitial lung disease is again identified not significantly changed. No definite alveolar infiltrates or pleural effusions are identified. The bony thorax is unremarkable. IMPRESSION: No significant change from the prior examination Reported By:
[2018-11-05] MEDS: NS 1/2 1000 ML IV 1,000 ML IV SCH ×4 (07:16→21:42)
[2018-11-05] MEDS: CHLORTHALIDONE PO SCH ×2 (08:03→09:21)
[2018-11-05] MEDS: PROTONIX TAB 40 MG PO SCH (08:04)
[2018-11-05] MEDS: PREDNISONE TAB 5 MG PO SCH (08:04)
[2018-11-05] MEDS: VSL#3 PO SCH (08:04)
[2018-11-05] MEDS: SENOKOT PO SCH ×2 (08:04→21:41)
[2018-11-05] MEDS: KLONOPIN TAB 1 MG PO SCH ×4 (08:04→21:47)
[2018-11-05] MEDS: NORVASC TAB 10 MG PO SCH ×2 (08:04→09:23)
[2018-11-05] MEDS: LOPRESSOR TAB 25 MG PO SCH ×2 (08:04→21:41)
[2018-11-05] MEDS: LOVENOX INJ 40 MG SYR SC SCH (08:05)
[2018-11-05] MEDS: LEVAQUIN PREMIX IV 500 MG 500 MG/100 ML BAG IV SCH (08:05)
[2018-11-05] MEDS: ROBITUSSIN DM PO SCH ×4 (08:05→21:41)
[2018-11-05] MEDS: LANTUS SC SCH ×2 (08:08→21:41)
[2018-11-05] MEDS: PULMICORT NEB TX 0.5 MG NEB SCH ×2 (08:13→20:35)
[2018-11-05] MEDS ORDERED: FLUTICASONE PROPIONATE IN SCH (09:00)
[2018-11-05] MEDS: INSULIN ASPART U subcut SCH (09:34)
[2018-11-05] MEDS ORDERED: NS 1/2 1000 ML IV 1,000 ML ONE (17:09)
[2018-11-05] MEDS: SNACK - Diabetic Appropriate PO SCH (21:40)
[2018-11-06] MEDS: PROVENTIL NEB TX 0.083% 2.5MG/ 3ML NEB SCH ×6 (00:52→20:08)
[2018-11-06] MEDS: FORTAZ or TAZICEF VIAL INJ IVP SCH ×3 (05:16→23:00)
[2018-11-06] MEDS: HumuLIN R SUBCUT PRN ×4 (05:43→23:01)
[2018-11-06 05:59] LABS: BASOPHILS # (AUTO) 0.1 X10^3/uL (0.0-0.1); BASOPHILS % (AUTO) 0.6 % (0.2-1.0); EOSINOPHILS # (AUTO) 0.2 x10^3/uL (0.0-0.2); EOSINOPHILS % (AUTO) 2.1 % (0.9-2.9); HEMATOCRIT 38.1 % (42.0-54.0); HEMOGLOBIN 12.6 g/dL (13.5-18.0); LYMPHOCYTES # (AUTO) 0.9 X10^3/uL (1.3-2.9); MEAN CORPUSCULAR HEMOGLOBIN 28.8 pg (27.0-34.0); MEAN CORPUSCULAR HGB CONC 33.2 g/dL (33.0-35.0); MEAN CORPUSCULAR VOLUME 86.9 fL (80.0-100.0); MEAN PLATELET VOLUME 8.7 fL (7.4-11.0); MONOCYTES # (AUTO) 1.4 x10^3/uL (0.3-0.8); MONOCYTES % (AUTO) 14.2 % (0.0-13.0); NEUTROPHILS # (AUTO) 7.1 x10^3/uL (2.2-4.8); NEUTROPHILS % (AUTO) 74.1 % (42.0-75.0); PLATELET COUNT 184 X10^3/uL (150.0-450.0); RED BLOOD COUNT 4.38 X10^6/uL (4.7-6.0); RED CELL DISTRIBUTION WIDTH 15.3 % (11.6-16.5); WHITE BLOOD COUNT 9.6 X10^3/uL (3.6-10.0)
--- NOTE | 2018-11-06 06:08 | RAD ---
HISTORY: Shortness of breath Study: Chest AP portable Comparison: 11/05/2018 Findings: Patient is rotated to the left. The heart is upper limits normal in size. No congestive heart failure is noted. Postsurgical changes are present in the right upper michael thorax with a suture line present and stable pleuro parenchymal scarring in the right lung apex. Diffuse severe chronic interstitial lung disease is again identified not significantly different from the prior examination. No definite alveolar infiltrates are identified. No definite pleural effusions are identified. The bony thorax is unremarkable. IMPRESSION: No change diffuse severe chronic interstitial lung disease Reported By:
[2018-11-06 06:13] LABS: ALANINE AMINOTRANSFERASE 9 Units/L (12-78); ALBUMIN 2.5 g/dL (3.4-5.0); ALKALINE PHOSPHATASE 72 Units/L (46-116); ASPARTATE AMINO TRANSFERASE 12 Units/L (15-37); BLOOD UREA NITROGEN 7 mg/dL (7-18); CALCIUM 9.4 mg/dL (8.5-10.1); CARBON DIOXIDE 31.5 mmol/L (21-32); CHLORIDE 98 mmol/L (98-107); COR CA(FOR HYPOALB) 10.6 mg/dL (8.5-10.1); COR NA(FOR HYPERGLY) 137 mmol/L (136-145); CREATININE 0.68 mg/dL (0.70-1.30); SODIUM 135 mmol/L (136-145); eGFR NON BLACK RACES > 60 (>60)
[2018-11-06] MEDS ORDERED: NS 1/2 1000 ML IV 1,000 ML ONE (06:18)
[2018-11-06] MEDS: NS 1/2 1000 ML IV 1,000 ML IV SCH ×2 (06:22→16:10)
[2018-11-06 06:59] LABS: PLATELET MORPHOLOGY COMMENT NORMAL (NORMAL)
[2018-11-06] MEDS: LEVAQUIN PREMIX IV 500 MG 500 MG/100 ML BAG IV SCH (08:26)
[2018-11-06] MEDS: NORVASC TAB 10 MG PO SCH (08:26)
[2018-11-06] MEDS: ROBITUSSIN DM PO SCH ×4 (08:26→21:23)
[2018-11-06] MEDS: LOPRESSOR TAB 25 MG PO SCH ×2 (08:27→21:24)
[2018-11-06] MEDS: CHLORTHALIDONE PO SCH (08:27)
[2018-11-06] MEDS: SENOKOT PO SCH ×2 (08:27→21:23)
[2018-11-06] MEDS: PREDNISONE TAB 5 MG PO SCH (08:27)
[2018-11-06] MEDS: VSL#3 PO SCH (08:27)
[2018-11-06] MEDS: PROTONIX TAB 40 MG PO SCH (08:27)
[2018-11-06] MEDS: KLONOPIN TAB 1 MG PO SCH ×2 (08:28→22:59)
[2018-11-06] MEDS: LANTUS SC SCH ×2 (08:28→22:59)
[2018-11-06] MEDS: LOVENOX INJ 40 MG SYR SC SCH (08:29)
[2018-11-06] MEDS: PULMICORT NEB TX 0.5 MG NEB SCH ×2 (09:32→20:08)
--- NOTE | 2018-11-06 10:23 | PCM.PROG ---
Progress Note - Progress Note for Day of Date of Exam: 11/04/18 - Subjective Subjective: WAS ADMITTED FOR BRONCHOPNEUMONIA. TODAY, HE IS ALERT AND ORIENTED, LYING IN BED ON MORNING ROUNDS. HE HAS A HISTORY OF PULMONARY FIBROSIS. HE CONTINUES WITH SHORTNESS OF BREATH AND A PRODUCTIVE COUGH TODAY. ON EXAMINATION, HEART IS REGULAR IN RATE AND RHYTHM. BILATERAL LUNGS ARE NOTED WITH SCATTERED WHEEZING. ABDOMEN IS ROUND, SOFT, AND NON-TENDER WITH NORMAL BOWEL SOUNDS NOTED IN ALL QUADRANTS. HIS VITALS THIS MORNING ARE 98.1-97-18-93%-173/77. LABS WERE OBTAINED. ABNORMAL LAB VALUES INCLUDE THE FOLLOWING: WBC 10.4, RBC 4.44, HGB 12.9, HCT 38.3, GLUCOSE 234, AST 12, ALT 11, ALBUMIN 2.6. BLOOD AND SPUTUM CULTURES ARE PENDING. A CHEST XRAY WAS OBTAINED AND REVEALED: Severe diffuse chronic interstitial lung disease radiographically stable when compared with the prior examination. Postsurgical changes on the right, stable. HE IS CURRENTLY RECEIVING IV FLUIDS, IV ANTIBIOTICS, RESPIRATORY TREATMENTS, SUPPLEMENTAL OXYGEN, AND HIS HOME MEDICATIONS WERE RESUMED. WE WILL CONTIN UE WITH CURRENT PLAN OF CARE TODAY. OTHERWISE, WE PLAN TO FOLLOW UP WITH AM LABS AND CONTINUE TO MONITOR. - Past Medical Family Social History Past Med/Fam/Surg Hx: No changes since H&P Allergies: Allergies No Known Drug Allergies Allergy (Verified 04/09/18 16:19) - Review of Systems ROS: No change since H&P - Vital Signs and I&O's Vital Signs: Temperature 98.2 F Pulse Rate [Right Brachial] 93 Pulse Rate 79 Respiratory Rate 22 Blood Pressure [Right Arm] 165/76 Blood Pressure [Left Arm] 188/80 Blood Pressure 121/61 O2 Sat by Pulse Oximetry 92 Intake and Output: Intake & Output 11/03/18 11/04/18 11/05/18 11/06/18 11:59 11:59 11:59 11:59 Intake Total 1300 / 1300 2019 Output Total 2 / 2 Balance 1298 / 1298 2019 - Physical Exam Oriented: Normal Eyes: Normal Ear: Normal Nose: Normal Throat: Normal Respiratory: Generalized, Diminished, Wheezes Cardiovascular: Normal, Murmur. negative: S3, S4 : Normal Auscultation: Bowel Sounds: Normal Palpation: Normal Tenderness: Normal Skin: Normal Musculoskeletal: Normal Psychiatric: Normal Mood Description: Calm Affect: Normal Speech Pattern: Clear, Appropriate - Laboratory and Diagnostics Result Diagrams: 11/06/18 05:13 11/06/18 05:13 Labs: 11/03/18 15:00 Sputum - Expectorated Sputum Sputum Culture - Preliminary 11/03/18 15:00 Sputum - Expectorated Sputum - Final 11/03/18 14:38 Blood Blood Culture - Preliminary 11/03/18 14:29 Blood Blood Culture - Preliminary Laboratory WBC 9.6 X10^3/uL (3.6-10.0) 11/06/18 05:13 RBC 4.38 X10^6/uL (4.7-6.0) L 11/06/18 05:13 Hgb 12.6 g/dL (13.5-18.0) L 11/06/18 05:13 Hct 38.1 % (42.0-54.0) L 11/06/18 05:13 MCV 86.9 fL (80.0-100.0) 11/06/18 05:13 MCH 28.8 pg (27.0-34.0) 11/06/18 05:13 MCHC 33.2 g/dL (33.0-35.0) 11/06/18 05:13 RDW 15.3 % (11.6-16.5) 11/06/18 05:13 Plt Count 184 X10^3/uL (150.0-450.0) 11/06/18 05:13 Plt Count Comment Adequate (ADEQUATE) 11/06/18 05:13 MPV 8.7 fL (7.4-11.0) 11/06/18 05:13 Neut % (Auto) 74.1 % (42.0-75.0) 11/06/18 05:13 Lymph % (Auto) 9.0 % (21.0-51.0) L 11/06/18 05:13 [place] % (Auto) 14.2 % (0.0-13.0) H 11/06/18 05:13 Eos % (Auto) 2.1 % (0.9-2.9) 11/06/18 05:13 Baso % (Auto) 0.6 % (0.2-1.0) 11/06/18 05:13 Neut # (Auto) 7.1 x10^3/uL (2.2-4.8) H 11/06/18 05:13 Lymph # (Auto) 0.9 X10^3/uL (1.3-2.9) L 11/06/18 05:13 [place] # (Auto) 1.4 x10^3/uL (0.3-0.8) H 11/06/18 05:13 Eos # (Auto) 0.2 x10^3/uL (0.0-0.2) 11/06/18 05:13 Baso # (Auto) 0.1 X10^3/uL (0.0-0.1) 11/06/18 05:13 Absolute Nucleated RBC 3.4 /100WBC 11/06/18 05:13 Plt Morphology Comment Normal (NORMAL) 11/06/18 05:13 RBC Morphology Normal (NORMAL) 11/06/18 05:13 Sodium 135 mmol/L (136-145) L 11/06/18 05:13 Corrected Sodium 137 mmol/L (136-145) 11/06/18 05:13 Potassium 3.8 mmol/L (3.5-5.1) 11/06/18 05:13 Chloride 98 mmol/L (98-107) 11/06/18 05:13 Carbon Dioxide 31.5 mmol/L (21-32) 11/06/18 05:13 BUN 7 mg/dL (7-18) 11/06/18 05:13 Creatinine 0.68 mg/dL (0.70-1.30) L 11/06/18 05:13 Est GFR (MDRD) Af Amer > 60 (>60) 11/06/18 05:13 Est GFR (MDRD) Non-Af > 60 (>60) 11/06/18 05:13 Glucose 181 mg/dL (65-99) H 11/06/18 05:13 POC Glucose (mg/dL) 184 mg/dL (65-99) H 11/06/18 05:32 Calcium 9.4 mg/dL (8.5-10.1) 11/06/18 05:13 Corrected Calcium 10.6 mg/dL (8.5-10.1) H 11/06/18 05:13 Magnesium 1.8 mg/dL (1.7-2.9) 11/04/18 05:40 Total Bilirubin 0.50 mg/dL (0.2-1.0) 11/06/18 05:13 AST 12 Units/L (15-37) L 11/06/18 05:13 ALT 9 Units/L (12-78) L 11/06/18 05:13 Alkaline Phosphatase 72 Units/L (46-116) 11/06/18 05:13 Total Protein 7.0 g/dL (6.4-8.2) 11/06/18 05:13 Albumin 2.5 g/dL (3.4-5.0) L 11/06/18 05:13 Globulin 4.5 g/dL (2.5-4.5) 11/06/18 05:13 Albumin/Globulin Ratio 0.6 Ratio (1.1-2.1) L 11/06/18 05:13 - Plan (1) Bronchopneumonia Status: Acute Plan: IV ANTIBIOTICS, RESPIRATORY TX, SUPPLEMENTAL OXYGEN, CONTINUE TO MONITOR (2) Pulmonary fibrosis Status: Chronic (3) COPD (chronic obstructive pulmonary disease) Status: Chronic Qualifiers: COPD type: COPD with acute lower respiratory infection Qualified Code(s): J44.0 - Chronic obstructive pulmonary disease with acute lower respiratory in fection
--- NOTE | 2018-11-06 14:07 | PCM.PROG ---
Progress Note - Progress Note for Day of Date of Exam: 11/05/18 - Subjective Subjective: WAS ADMITTED FOR BRONCHOPNEUMONIA. TODAY, HE IS ALERT AND ORIENTED, LYING IN BED ON MORNING ROUNDS. HE HAS A HISTORY OF PULMONARY FIBROSIS. HE CONTINUES WITH SHORTNESS OF BREATH AND A PRODUCTIVE COUGH TODAY. ON EXAMINATION, HEART IS REGULAR IN RATE AND RHYTHM. BILATERAL LUNGS ARE NOTED WITH SCATTERED WHEEZING. ABDOMEN IS ROUND, SOFT, AND NON-TENDER WITH NORMAL BOWEL SOUNDS NOTED IN ALL QUADRANTS. HIS VITALS THIS MORNING ARE 98.2-94-18-93%-127/61. LABS WERE OBTAINED. ABNORMAL LAB VALUES INCLUDE THE FOLLOWING: WBC 4.34, HGB 12.6, HCT 37.8, CARBON DIOXIDE 33.4, BUN 5, AST 10, ALT 9, ALBUMIN 2.4. BLOOD AND SPUTUM CULTURES ARE PENDING. A CHEST XRAY WAS OBTAINED AND REVEALED: The heart is upper limits normal in size. No definite congestive heart failure is noted. Postsurgical changes are present in the right upper lobe where there is also some apical pleural thickening. Severe diffuse chronic interstitial lung disease is again identified not significantly changed. No definite alveolar infiltrates or pleural effusions are identified. The bony thorax is unremarkable. HE IS CURRENTLY RECEIVING IV FLUIDS, IV ANTIBIOTICS, RESPIRATORY TREATMENTS, SUPPLEMENTAL OXYGEN, AND HIS HOME MEDICATIONS WERE RESUMED. WE WILL CONTINUE WITH CURRENT PLAN OF CARE TODAY. OTHERWISE, WE PLAN TO FOLLOW UP WITH AM LABS AND CONTINUE TO MONITOR. - Past Medical Family Social History Past Med/Fam/Surg Hx: No changes since H&P Allergies: Allergies No Known Drug Allergies Allergy (Verified 04/09/18 16:19) - Review of Systems ROS: No change since H&P - Vital Signs and I&O's Vital Signs: Temperature 97.9 F Pulse Rate [Right Brachial] 82 Pulse Rate 81 Respiratory Rate 20 Blood Pressure [Right Arm] 130/58 Blood Pressure [Left Arm] 188/80 Blood Pressure 121/61 O2 Sat by Pulse Oximetry 90 Intake and Output: Intake & Output 11/04/18 11/05/18 11/06/18 11/07/18 11:59 11:59 11:59 11:59 Intake Total 1300 / 1300 2019 Output Total 2 / 2 Balance 1298 / 1298 2019 - Physical Exam Oriented: Normal Eyes: Normal Ear: Normal Nose: Normal Throat: Normal Respiratory: Generalized, Diminished, Wheezes Cardiovascular: Normal, Murmur. negative: S3, S4 : Normal Auscultation: Bowel Sounds: Normal Tenderness: Normal Skin: Normal Musculoskeletal: Normal Psychiatric: Normal Mood Description: Calm Affect: Normal Speech Pattern: Clear, Appropriate - Laboratory and Diagnostics Result Diagrams: 11/06/18 05:13 11/06/18 05:13 Labs: 11/03/18 15:00 Sputum - Expectorated Sputum Sputum Culture - Preliminary 11/03/18 15:00 Sputum - Expectorated Sputum - Final 11/03/18 14:38 Blood Blood Culture - Preliminary 11/03/18 14:29 Blood Blood Culture - Preliminary Laboratory WBC 9.6 X10^3/uL (3.6-10.0) 11/06/18 05:13 RBC 4.38 X10^6/uL (4.7-6.0) L 11/06/18 05:13 Hgb 12.6 g/dL (13.5-18.0) L 11/06/18 05:13 Hct 38.1 % (42.0-54.0) L 11/06/18 05:13 MCV 86.9 fL (80.0-100.0) 11/06/18 05:13 MCH 28.8 pg (27.0-34.0) 11/06/18 05:13 MCHC 33.2 g/dL (33.0-35.0) 11/06/18 05:13 RDW 15.3 % (11.6-16.5) 11/06/18 05:13 Plt Count 184 X10^3/uL (150.0-450.0) 11/06/18 05:13 Plt Count Comment Adequate (ADEQUATE) 11/06/18 05:13 MPV 8.7 fL (7.4-11.0) 11/06/18 05:13 Neut % (Auto) 74.1 % (42.0-75.0) 11/06/18 05:13 Lymph % (Auto) 9.0 % (21.0-51.0) L 11/06/18 05:13 [place] % (Auto) 14.2 % (0.0-13.0) H 11/06/18 05:13 Eos % (Auto) 2.1 % (0.9-2.9) 11/06/18 05:13 Baso % (Auto) 0.6 % (0.2-1.0) 11/06/18 05:13 Neut # (Auto) 7.1 x10^3/uL (2.2-4.8) H 11/06/18 05:13 Lymph # (Auto) 0.9 X10^3/uL (1.3-2.9) L 11/06/18 05:13 [place] # (Auto) 1.4 x10^3/uL (0.3-0.8) H 11/06/18 05:13 Eos # (Auto) 0.2 x10^3/uL (0.0-0.2) 11/06/18 05:13 Baso # (Auto) 0.1 X10^3/uL (0.0-0.1) 11/06/18 05:13 Absolute Nucleated RBC 3.4 /100WBC 11/06/18 05:13 Plt Morphology Comment Normal (NORMAL) 11/06/18 05:13 RBC Morphology Normal (NORMAL) 11/06/18 05:13 Sodium 135 mmol/L (136-145) L 11/06/18 05:13 Corrected Sodium 137 mmol/L (136-145) 11/06/18 05:13 Potassium 3.8 mmol/L (3.5-5.1) 11/06/18 05:13 Chloride 98 mmol/L (98-107) 11/06/18 05:13 Carbon Dioxide 31.5 mmol/L (21-32) 11/06/18 05:13 BUN 7 mg/dL (7-18) 11/06/18 05:13 Creatinine 0.68 mg/dL (0.70-1.30) L 11/06/18 05:13 Est GFR (MDRD) Af Amer > 60 (>60) 11/06/18 05:13 Est GFR (MDRD) Non-Af > 60 (>60) 11/06/18 05:13 Glucose 181 mg/dL (65-99) H 11/06/18 05:13 POC Glucose (mg/dL) 189 mg/dL (65-99) H 11/06/18 11:41 Calcium 9.4 mg/dL (8.5-10.1) 11/06/18 05:13 Corrected Calcium 10.6 mg/dL (8.5-10.1) H 11/06/18 05:13 Magnesium 1.8 mg/dL (1.7-2.9) 11/04/18 05:40 Total Bilirubin 0.50 mg/dL (0.2-1.0) 11/06/18 05:13 AST 12 Units/L (15-37) L 11/06/18 05:13 ALT 9 Units/L (12-78) L 11/06/18 05:13 Alkaline Phosphatase 72 Units/L (46-116) 11/06/18 05:13 Total Protein 7.0 g/dL (6.4-8.2) 11/06/18 05:13 Albumin 2.5 g/dL (3.4-5.0) L 11/06/18 05:13 Globulin 4.5 g/dL (2.5-4.5) 11/06/18 05:13 Albumin/Globulin Ratio 0.6 Ratio (1.1-2.1) L 11/06/18 05:13 - Plan (1) Bronchopneumonia Status: Acute Plan: IV ANTIBIOTICS, RESPIRATORY TX, SUPPLEMENTAL OXYGEN, CONTINUE TO MONITOR (2) Pulmonary fibrosis Status: Chronic (3) COPD (chronic obstructive pulmonary disease) Status: Chronic Qualifiers: COPD type: COPD with acute lower respiratory infection Qualified Code(s): J44.0 - Chronic obstructive pulmonary disease with acute lower respiratory infe ction
[2018-11-06] MEDS: SNACK - Diabetic Appropriate PO SCH (21:00)
[2018-11-07] MEDS ORDERED: NS 1/2 1000 ML IV 1,000 ML ONE ×2 (00:14→11:35)
[2018-11-07] MEDS: PROVENTIL NEB TX 0.083% 2.5MG/ 3ML NEB SCH ×6 (00:58→20:07)
[2018-11-07] MEDS ORDERED: KLONOPIN TAB 1 MG PO PRN (01:23)
[2018-11-07] MEDS: NS 1/2 1000 ML IV 1,000 ML IV SCH ×3 (03:10→17:11)
[2018-11-07 05:26] LABS: BASOPHILS % (AUTO) 0.4 % (0.2-1.0); EOSINOPHILS # (AUTO) 0.3 x10^3/uL (0.0-0.2); EOSINOPHILS % (AUTO) 3.1 % (0.9-2.9); HEMATOCRIT 38.7 % (42.0-54.0); HEMOGLOBIN 13.1 g/dL (13.5-18.0); LYMPHOCYTES # (AUTO) 0.9 X10^3/uL (1.3-2.9); LYMPHOCYTES % (AUTO) 10.2 % (21.0-51.0); MEAN CORPUSCULAR HEMOGLOBIN 28.9 pg (27.0-34.0); MEAN CORPUSCULAR HGB CONC 33.9 g/dL (33.0-35.0); MEAN CORPUSCULAR VOLUME 85.2 fL (80.0-100.0); MEAN PLATELET VOLUME 8.2 fL (7.4-11.0); MONOCYTES # (AUTO) 1.3 x10^3/uL (0.3-0.8); MONOCYTES % (AUTO) 15.3 % (0.0-13.0); NEUTROPHILS # (AUTO) 6.1 x10^3/uL (2.2-4.8); PLATELET COUNT 200 X10^3/uL (150.0-450.0); RED BLOOD COUNT 4.54 X10^6/uL (4.7-6.0); RED CELL DISTRIBUTION WIDTH 15.5 % (11.6-16.5); WHITE BLOOD COUNT 8.6 X10^3/uL (3.6-10.0)
[2018-11-07 05:48] LABS: ALANINE AMINOTRANSFERASE 12 Units/L (12-78); ALBUMIN 2.5 g/dL (3.4-5.0); ALKALINE PHOSPHATASE 69 Units/L (46-116); ASPARTATE AMINO TRANSFERASE 14 Units/L (15-37); BLOOD UREA NITROGEN 7 mg/dL (7-18); CALCIUM 9.4 mg/dL (8.5-10.1); CHLORIDE 95 mmol/L (98-107); COR CA(FOR HYPOALB) 10.6 mg/dL (8.5-10.1); COR NA(FOR HYPERGLY) 134 mmol/L (136-145); CREATININE 0.68 mg/dL (0.70-1.30); SODIUM 133 mmol/L (136-145); TOTAL PROTEIN 7.1 g/dL (6.4-8.2); eGFR NON BLACK RACES > 60 (>60)
[2018-11-07] MEDS: FORTAZ or TAZICEF VIAL INJ IVP SCH (06:15)
--- NOTE | 2018-11-07 06:23 | RAD ---
HISTORY: Shortness of breath Study: Chest AP portable Comparison: None Findings: The patient is rotated to the right. The heart is upper limits normal in size. No definite congestive heart failure is identified. Postsurgical changes on the right are stable. Diffuse severe chronic interstitial lung disease again identified and not significantly changed from the prior examination. No definite alveolar infiltrates or pleural effusions are identified. The bony thorax is unremarkable. IMPRESSION: No significant change from the prior examination Reported By:
[2018-11-07] MEDS: PULMICORT NEB TX 0.5 MG NEB SCH ×2 (08:14→20:07)
[2018-11-07] MEDS: VSL#3 PO SCH (09:26)
[2018-11-07] MEDS: LOPRESSOR TAB 25 MG PO SCH ×2 (09:27→21:31)
[2018-11-07] MEDS: CHLORTHALIDONE PO SCH (09:27)
[2018-11-07] MEDS: SENOKOT PO SCH ×2 (09:27→21:33)
[2018-11-07] MEDS: PROTONIX TAB 40 MG PO SCH (09:27)
[2018-11-07] MEDS: NORVASC TAB 10 MG PO SCH (09:27)
[2018-11-07] MEDS: LOVENOX INJ 40 MG SYR SC SCH (09:28)
[2018-11-07] MEDS: LANTUS SC SCH ×2 (09:28→21:32)
[2018-11-07] MEDS: PREDNISONE TAB 5 MG PO SCH (09:28)
[2018-11-07] MEDS: ROBITUSSIN DM PO SCH ×4 (09:30→21:33)
[2018-11-07] MEDS: LEVAQUIN PREMIX IV 500 MG 500 MG/100 ML BAG IV SCH (09:30)
[2018-11-07] MEDS ORDERED: PHARMACY CONSULT - TOBRAMYCIN XX SCH (11:00)
[2018-11-07] MEDS: VIBRAMYCIN 100 MG in D5W 250 ML IV 250 ML IV SCH ×2 (11:19→21:31)
[2018-11-07] MEDS ORDERED: NS IV NR (12:00)
[2018-11-07] MEDS ORDERED: TOBRAMYCIN SULFATE IV NR (12:00)
[2018-11-07] MEDS: HumuLIN R SUBCUT PRN ×2 (12:01→17:47)
[2018-11-07] MEDS: SNACK - Diabetic Appropriate PO SCH (20:00)
[2018-11-08] MEDS: PROVENTIL NEB TX 0.083% 2.5MG/ 3ML NEB SCH ×6 (01:20→20:04)
[2018-11-08 05:22] LABS: BASOPHILS % (AUTO) 0.4 % (0.2-1.0); EOSINOPHILS # (AUTO) 0.3 x10^3/uL (0.0-0.2); EOSINOPHILS % (AUTO) 2.8 % (0.9-2.9); HEMOGLOBIN 12.9 g/dL (13.5-18.0); LYMPHOCYTES # (AUTO) 0.9 X10^3/uL (1.3-2.9); MEAN CORPUSCULAR HEMOGLOBIN 28.9 pg (27.0-34.0); MEAN PLATELET VOLUME 8.2 fL (7.4-11.0); MONOCYTES # (AUTO) 1.5 x10^3/uL (0.3-0.8); MONOCYTES % (AUTO) 15.7 % (0.0-13.0); NEUTROPHILS # (AUTO) 6.7 x10^3/uL (2.2-4.8); NEUTROPHILS % (AUTO) 71.1 % (42.0-75.0); PLATELET COUNT 207 X10^3/uL (150.0-450.0); RED BLOOD COUNT 4.48 X10^6/uL (4.7-6.0); RED CELL DISTRIBUTION WIDTH 14.9 % (11.6-16.5); WHITE BLOOD COUNT 9.4 X10^3/uL (3.6-10.0)
[2018-11-08 05:36] LABS: ALANINE AMINOTRANSFERASE 12 Units/L (12-78); ALBUMIN 2.4 g/dL (3.4-5.0); ALKALINE PHOSPHATASE 69 Units/L (46-116); ASPARTATE AMINO TRANSFERASE 15 Units/L (15-37); BLOOD UREA NITROGEN 9 mg/dL (7-18); CALCIUM 9.4 mg/dL (8.5-10.1); CARBON DIOXIDE 32.5 mmol/L (21-32); CHLORIDE 91 mmol/L (98-107); COR CA(FOR HYPOALB) 10.7 mg/dL (8.5-10.1); COR NA(FOR HYPERGLY) 131 mmol/L (136-145); CREATININE 0.63 mg/dL (0.70-1.30); SODIUM 130 mmol/L (136-145); eGFR NON BLACK RACES > 60 (>60)
--- NOTE | 2018-11-08 07:27 | RAD ---
Examination: AP chest History: SOB Comparison 11/07/2018 Findings: Stable/normal cardiac size. Diffuse interstitial infiltrates again noted. There is no evidence for developing consolidation, pneumothorax or large pleural effusion. Impression: No change since 11/07/2018. Reported By:
[2018-11-08] MEDS: PULMICORT NEB TX 0.5 MG NEB SCH ×2 (08:53→20:04)
[2018-11-08] MEDS ORDERED: PHARMACY COMMENT IV NR (09:00)
[2018-11-08] MEDS: VIBRAMYCIN 100 MG in D5W 250 ML IV 250 ML IV SCH ×2 (10:03→21:01)
[2018-11-08] MEDS: CHLORTHALIDONE PO SCH (10:04)
[2018-11-08] MEDS: NORVASC TAB 10 MG PO SCH (10:04)
[2018-11-08] MEDS: VSL#3 PO SCH (10:04)
[2018-11-08] MEDS: PROTONIX TAB 40 MG PO SCH (10:04)
[2018-11-08] MEDS: LOVENOX INJ 40 MG SYR SC SCH (10:04)
[2018-11-08] MEDS: LOPRESSOR TAB 25 MG PO SCH ×2 (10:05→21:01)
[2018-11-08] MEDS: SENOKOT PO SCH ×2 (10:05→21:01)
[2018-11-08] MEDS: PREDNISONE TAB 5 MG PO SCH (10:05)
[2018-11-08] MEDS: LANTUS SC SCH ×2 (10:06→22:00)
[2018-11-08] MEDS: ROBITUSSIN DM PO SCH ×4 (10:06→21:01)
[2018-11-08] MEDS: HumuLIN R SUBCUT PRN ×2 (12:00→22:00)
[2018-11-08 12:32] LABS: CREATININE 0.75 mg/dL (0.70-1.30); TOBRAMYCIN,TROUGH 0.2 ug/mL (0-2)
[2018-11-08] MEDS: NS 1/2 1000 ML IV 1,000 ML IV SCH (14:20)
[2018-11-08] MEDS: TOBRAMYCIN SULFATE IV SCH (14:21)
[2018-11-08] MEDS: NS IV SCH (14:21)
[2018-11-08] MEDS: MAGNESIUM SULFATE 1 GRAM/100 mL PREMIX 1 GM/100 ML BAG IV PRN ×2 (16:20→17:30)
[2018-11-08] MEDS: K-DUR TAB 20 MEQ PO PRN (16:20)
--- NOTE | 2018-11-08 20:48 | PCM.PROG ---
Progress Note - Progress Note for Day of Date of Exam: 11/06/18 - Subjective Subjective: WAS ADMITTED FOR BRONCHOPNEUMONIA. TODAY, HE IS ALERT AND ORIENTED, LYING IN BED ON MORNING ROUNDS. HE CONTINUES WITH SHORTNESS OF BREATH AND A PRODUCTIVE COUGH TODAY. ON EXAMINATION, HEART IS REGULAR IN RATE AND RHYTHM. BILATERAL LUNGS ARE NOTED WITH SCATTERED WHEEZING. ABDOMEN IS ROUND, SOFT, AND NON-TENDER WITH NORMAL BOWEL SOUNDS NOTED IN ALL QUADRANTS. HIS VITALS THIS MORNING ARE 98.2-94-18-93%-127/61. LABS WERE OBTAINED. ABNORMAL LAB VALUES INCLUDE THE FOLLOWING: WBC 4.38, HGB 12.6, HCT 38.1, SODIUM 135, CREATININE 0.68, GLUCOSE 181, AST 12, ALT 9, ALBUMIN 2.5. BLOOD AND SPUTUM CULTURES ARE PENDING. 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 HE IS CURRENTLY RECEIVING IV FLUIDS, IV ANTIBIOTICS, RESPIRATORY TREATMENTS, SUPPLEMENTAL OXYGEN, AND HIS HOME MEDICATIONS WERE RESUMED. WE WILL CONTINUE WITH CURRENT PLAN OF CARE TODAY. OTHERWISE, WE PLAN TO FOLLOW UP WITH AM LABS AND CONTINUE TO MONITOR. - Past Medical Family Social History Past Med/Fam/Surg Hx: No changes since H&P Allergies: Allergies No Known Drug Allergies Allergy (Verified 04/09/18 16:19) - Review of Systems ROS: No change since H&P - Vital Signs and I&O's Vital Signs: Temperature 98.1 F Pulse Rate [Right Brachial] 78 Pulse Rate 77 Respiratory Rate 18 Blood Pressure [Right Arm] 156/80 Blood Pressure [Left Arm] 140/64 Blood Pressure 121/61 O2 Sat by Pulse Oximetry 96 Intake and Output: Intake & Output 11/06/18 11/07/18 11/08/18 11/09/18 11:59 11:59 11:59 11:59 Intake Total 2149 600 / 600 Balance 2149 600 / 600 - Physical Exam Oriented: Normal Eyes: Normal Ear: Normal Nose: Normal Throat: Normal Respiratory: Generalized, Diminished, Wheezes Cardiovascular: Normal, Murmur. negative: S3, S4 : Normal Auscultation: Bowel Sounds: Normal Tenderness: Normal Skin: Normal Musculoskeletal: Normal Psychiatric: Normal Mood Description: Calm Affect: Normal Speech Pattern: Clear, Appropriate - Laboratory and Diagnostics Result Diagrams: 11/08/18 04:22 11/08/18 12:13 Labs: 11/03/18 15:00 Sputum - Expectorated Sputum Sputum Culture - Final Acinetobacter Lwoffii 11/03/18 15:00 Sputum - Expectorated Sputum - Final 11/03/18 14:38 Blood Blood Culture - Preliminary 11/03/18 14:29 Blood Blood Culture - Preliminary Laboratory WBC 9.4 X10^3/uL (3.6-10.0) 11/08/18 04:22 RBC 4.48 X10^6/uL (4.7-6.0) L 11/08/18 04:22 Hgb 12.9 g/dL (13.5-18.0) L 11/08/18 04:22 Hct 38.0 % (42.0-54.0) L 11/08/18 04:22 MCV 85.0 fL (80.0-100.0) 11/08/18 04:22 MCH 28.9 pg (27.0-34.0) 11/08/18 04:22 MCHC 34.0 g/dL (33.0-35.0) 11/08/18 04:22 RDW 14.9 % (11.6-16.5) 11/08/18 04:22 Plt Count 207 X10^3/uL (150.0-450.0) 11/08/18 04:22 Plt Count Comment Adequate (ADEQUATE) 11/06/18 05:13 MPV 8.2 fL (7.4-11.0) 11/08/18 04:22 Neut % (Auto) 71.1 % (42.0-75.0) 11/08/18 04:22 Lymph % (Auto) 10.0 % (21.0-51.0) L 11/08/18 04:22 [place] % (Auto) 15.7 % (0.0-13.0) H 11/08/18 04:22 Eos % (Auto) 2.8 % (0.9-2.9) 11/08/18 04:22 Baso % (Auto) 0.4 % (0.2-1.0) 11/08/18 04:22 Neut # (Auto) 6.7 x10^3/uL (2.2-4.8) H 11/08/18 04:22 Lymph # (Auto) 0.9 X10^3/uL (1.3-2.9) L 11/08/18 04:22 [place] # (Auto) 1.5 x10^3/uL (0.3-0.8) H 11/08/18 04:22 Eos # (Auto) 0.3 x10^3/uL (0.0-0.2) H 11/08/18 04:22 Baso # (Auto) 0.0 X10^3/uL (0.0-0.1) 11/08/18 04:22 Absolute Nucleated RBC 0.0 /100WBC 11/08/18 04:22 Plt Morphology Comment Normal (NORMAL) 11/06/18 05:13 RBC Morphology Normal (NORMAL) 11/06/18 05:13 Sodium 130 mmol/L (136-145) L 11/08/18 04:22 Corrected Sodium 131 mmol/L (136-145) L 11/08/18 04:22 Potassium 3.6 mmol/L (3.5-5.1) 11/08/18 04:22 Chloride 91 mmol/L (98-107) L 11/08/18 04:22 Carbon Dioxide 32.5 mmol/L (21-32) H 11/08/18 04:22 BUN 9 mg/dL (7-18) 11/08/18 04:22 Creatinine 0.75 mg/dL (0.70-1.30) 11/08/18 12:13 Est GFR (MDRD) Af Amer > 60 (>60) 11/08/18 04:22 Est GFR (MDRD) Non-Af > 60 (>60) 11/08/18 04:22 Glucose 128 mg/dL (65-99) H 11/08/18 04:22 POC Glucose (mg/dL) 161 mg/dL (65-99) H 11/08/18 16:10 Calcium 9.4 mg/dL (8.5-10.1) 11/08/18 04:22 Corrected Calcium 10.7 mg/dL (8.5-10.1) H 11/08/18 04:22 Magnesium 1.8 mg/dL (1.7-2.9) 11/04/18 05:40 Total Bilirubin 0.60 mg/dL (0.2-1.0) 11/08/18 04:22 AST 15 Units/L (15-37) 11/08/18 04:22 ALT 12 Units/L (12-78) 11/08/18 04:22 Alkaline Phosphatase 69 Units/L (46-116) 11/08/18 04:22 Total Protein 7.0 g/dL (6.4-8.2) 11/08/18 04:22 Albumin 2.4 g/dL (3.4-5.0) L 11/08/18 04:22 Globulin 4.6 g/dL (2.5-4.5) H 11/08/18 04:22 Albumin/Globulin Ratio 0.5 Ratio (1.1-2.1) L 11/08/18 04:22 Tobramycin Trough 0.2 ug/mL (0-2) 11/08/18 12:13 - Plan (1) Bronchopneumonia Status: Acute Plan: IV ANTIBIOTICS, RESPIRATORY TX, SUPPLEMENTAL OXYGEN, CONTINUE TO MONITOR (2) Pulmonary fibrosis Status: Chronic (3) COPD (chronic obstructive pulmonary disease) Status: Chronic Qualifiers: COPD type: COPD with acute lower respiratory infection Qualified Code(s): J44.0 - Chronic obstructive pulmonary disease with acute lower respiratory infection
[2018-11-08] MEDS: SNACK - Diabetic Appropriate PO SCH (21:00)
[2018-11-09] MEDS: PROVENTIL NEB TX 0.083% 2.5MG/ 3ML NEB SCH ×6 (01:12→20:15)
[2018-11-09 05:05] LABS: BASOPHILS % (AUTO) 0.5 % (0.2-1.0); EOSINOPHILS # (AUTO) 0.2 x10^3/uL (0.0-0.2); EOSINOPHILS % (AUTO) 2.1 % (0.9-2.9); HEMOGLOBIN 13.4 g/dL (13.5-18.0); LYMPHOCYTES % (AUTO) 9.3 % (21.0-51.0); MEAN CORPUSCULAR HEMOGLOBIN 28.7 pg (27.0-34.0); MEAN CORPUSCULAR HGB CONC 34.2 g/dL (33.0-35.0); MEAN CORPUSCULAR VOLUME 83.9 fL (80.0-100.0); MEAN PLATELET VOLUME 8.3 fL (7.4-11.0); MONOCYTES # (AUTO) 1.6 x10^3/uL (0.3-0.8); MONOCYTES % (AUTO) 15.3 % (0.0-13.0); NEUTROPHILS # (AUTO) 7.6 x10^3/uL (2.2-4.8); NEUTROPHILS % (AUTO) 72.8 % (42.0-75.0); PLATELET COUNT 227 X10^3/uL (150.0-450.0); RED BLOOD COUNT 4.65 X10^6/uL (4.7-6.0); WHITE BLOOD COUNT 10.5 X10^3/uL (3.6-10.0)
[2018-11-09 05:24] LABS: ALANINE AMINOTRANSFERASE 13 Units/L (12-78); ALBUMIN 2.5 g/dL (3.4-5.0); ALKALINE PHOSPHATASE 68 Units/L (46-116); ASPARTATE AMINO TRANSFERASE 19 Units/L (15-37); BLOOD UREA NITROGEN 9 mg/dL (7-18); CALCIUM 9.4 mg/dL (8.5-10.1); CARBON DIOXIDE 30.8 mmol/L (21-32); CHLORIDE 90 mmol/L (98-107); COR CA(FOR HYPOALB) 10.6 mg/dL (8.5-10.1); CREATININE 0.62 mg/dL (0.70-1.30); SODIUM 127 mmol/L (136-145); TOTAL PROTEIN 7.1 g/dL (6.4-8.2); eGFR NON BLACK RACES > 60 (>60)
[2018-11-09] MEDS: K-DUR TAB 20 MEQ PO PRN (05:56)
--- NOTE | 2018-11-09 07:03 | RAD ---
Exam: Portable chest History: 73-year-old male with shortness of breath. Comparison: Previous chest radiograph from 11/08/2018. Findings: Heart size and pulmonary vasculature are stable. Stable appearing right apical pleural thickening is again noted. Severe diffuse, bilateral chronic interstitial fibrosis is again seen. Though no definite evidence of acute superimposed infiltrate, that would be difficult to exclude in a patient with this degree of parenchymal scarring. No significant effusion on either side. Bony thorax is unremarkable. Surgical clips are again identified in the supraclavicular region bilaterally as well as the left apex. Impression: Severe diffuse chronic interstitial lung disease. Though no definite evidence of acute superimposed infiltrate is identified, subtle airspace disease would be difficult to exclude on this background of diffuse scarring. Reported By:
[2018-11-09] MEDS: PULMICORT NEB TX 0.5 MG NEB SCH ×2 (08:42→20:15)
[2018-11-09] MEDS ORDERED: MILK OF MAGNESIA PO SCH (09:00)
[2018-11-09] MEDS: TOBRAMYCIN SULFATE IV SCH (09:55)
[2018-11-09] MEDS: NS IV SCH (09:55)
[2018-11-09] MEDS: VIBRAMYCIN 100 MG in D5W 250 ML IV 250 ML IV SCH ×2 (09:56→21:04)
[2018-11-09] MEDS: NORVASC TAB 10 MG PO SCH (09:56)
[2018-11-09] MEDS: CHLORTHALIDONE PO SCH (09:56)
[2018-11-09] MEDS: PROTONIX TAB 40 MG PO SCH (09:56)
[2018-11-09] MEDS: VSL#3 PO SCH (09:57)
[2018-11-09] MEDS: ROBITUSSIN DM PO SCH ×4 (09:57→21:04)
[2018-11-09] MEDS: LOPRESSOR TAB 25 MG PO SCH ×2 (09:57→21:02)
[2018-11-09] MEDS: PREDNISONE TAB 5 MG PO SCH (09:57)
[2018-11-09] MEDS: LANTUS SC SCH ×2 (09:58→21:06)
[2018-11-09] MEDS: SENOKOT PO SCH ×2 (10:01→21:04)
[2018-11-09] MEDS: LOVENOX INJ 40 MG SYR SC SCH (10:01)
[2018-11-09] MEDS: NS 1000 ML 1,000 ML IV SCH (10:06)
--- NOTE | 2018-11-09 13:43 | PCM.PROG ---
Progress Note - Progress Note for Day of Date of Exam: 11/07/18 - Subjective Subjective: WAS ADMITTED FOR BRONCHOPNEUMONIA. TODAY, HE IS ALERT AND ORIENTED, LYING IN BED ON MORNING ROUNDS. HE CONTINUES WITH SHORTNESS OF BREATH AND A PRODUCTIVE COUGH TODAY. ON EXAMINATION, HEART IS REGULAR IN RATE AND RHYTHM. BILATERAL LUNGS ARE NOTED WITH SCATTERED WHEEZING. ABDOMEN IS ROUND, SOFT, AND NON-TENDER WITH NORMAL BOWEL SOUNDS NOTED IN ALL QUADRANTS. HIS VITALS THIS MORNING ARE 98.1-84-20-96%-167/75. LABS WERE OBTAINED. ABNORMAL LAB VALUES INCLUDE THE FOLLOWING: WBC 4.54, HGB 13.1, HCT 38.7, SODIUM 133, CHLORIDE 95, CREATININE 0.68, GLUCOSE 126, AST 14, ALBUMIN 2.5, GLOBULIN 4.6. SPUTUM CULTURE REPORTED GROWTH OF ACINETOBACTER LWOFFII. A CHEST XRAY WAS OBTAINED AND R EVEALED: No significant change diffuse severe chronic interstitial lung disease. HE IS CURRENTLY RECEIVING IV FLUIDS, IV FORTAZ, IV LEVAQUIN, RESPIRATORY TREATMENTS, SUPPLEMENTAL OXYGEN, AND HIS HOME MEDICATIONS WERE RESUMED. WE WILL DISCONTINUE THE FORTAZ AND LEVAQUIN TODAY AND START DOXYCYCLINE AND TOBRAMYCIN IV. OTHERWISE, WE WILL CONTINUE WITH CURRENT PLAN OF CARE TODAY. WE PLAN TO FOLLOW UP WITH AM LABS AND CONTINUE TO MONITOR. - Past Medical Family Social History Past Med/Fam/Surg Hx: No changes since H&P Allergies: Allergies No Known Drug Allergies Allergy (Verified 04/09/18 16:19) - Review of Systems ROS: No change since H&P - Vital Signs and I&O's Vital Signs: Temperature 98 F Pulse Rate [Left Brachial] 80 Pulse Rate [Right Brachial] 78 Pulse Rate 85 Respiratory Rate 18 Blood Pressure [Right Arm] 141/68 Blood Pressure [Left Arm] 140/64 Blood Pressure 121/61 O2 Sat by Pulse Oximetry 96 Intake and Output: Intake & Output 11/07/18 11/08/18 11/09/18 11/10/18 11:59 11:59 11:59 11:59 Intake Total 1979 Balance 1979 - Physical Exam Oriented: Normal Eyes: Normal Ear: Normal Nose: Normal Throat: Normal Respiratory: Generalized, Diminished, Wheezes Cardiovascular: Normal, Murmur. negative: S3, S4 : Normal Auscultation: Bowel Sounds: Normal Tenderness: Normal Skin: Normal Musculoskeletal: Normal Psychiatric: Normal Mood Description: Calm Affect: Normal Speech Pattern: Clear, Appropriate - Laboratory and Diagnostics Result Diagrams: 11/09/18 04:28 11/09/18 04:28 Labs: 11/03/18 14:38 Blood Blood Culture - Final 11/03/18 14:29 Blood Blood Culture - Final No growth 11/03/18 15:00 Sputum - Expectorated Sputum Sputum Culture - Final Acinetobacter Lwoffii 11/03/18 15:00 Sputum - Expectorated Sputum - Final Laboratory WBC 10.5 X10^3/uL (3.6-10.0) H 11/09/18 04:28 RBC 4.65 X10^6/uL (4.7-6.0) L 11/09/18 04:28 Hgb 13.4 g/dL (13.5-18.0) L 11/09/18 04:28 Hct 39.0 % (42.0-54.0) L 11/09/18 04:28 MCV 83.9 fL (80.0-100.0) 11/09/18 04:28 MCH 28.7 pg (27.0-34.0) 11/09/18 04:28 MCHC 34.2 g/dL (33.0-35.0) 11/09/18 04:28 RDW 15.0 % (11.6-16.5) 11/09/18 04:28 Plt Count 227 X10^3/uL (150.0-450.0) 11/09/18 04:28 Plt Count Comment Adequate (ADEQUATE) 11/06/18 05:13 MPV 8.3 fL (7.4-11.0) 11/09/18 04:28 Neut % (Auto) 72.8 % (42.0-75.0) 11/09/18 04:28 Lymph % (Auto) 9.3 % (21.0-51.0) L 11/09/18 04:28 [place] % (Auto) 15.3 % (0.0-13.0) H 11/09/18 04:28 Eos % (Auto) 2.1 % (0.9-2.9) 11/09/18 04:28 Baso % (Auto) 0.5 % (0.2-1.0) 11/09/18 04:28 Neut # (Auto) 7.6 x10^3/uL (2.2-4.8) H 11/09/18 04:28 Lymph # (Auto) 1.0 X10^3/uL (1.3-2.9) L 11/09/18 04:28 [place] # (Auto) 1.6 x10^3/uL (0.3-0.8) H 11/09/18 04:28 Eos # (Auto) 0.2 x10^3/uL (0.0-0.2) 11/09/18 04:28 Baso # (Auto) 0.0 X10^3/uL (0.0-0.1) 11/09/18 04:28 Absolute Nucleated RBC 0.5 /100WBC 11/09/18 04:28 Plt Morphology Comment Normal (NORMAL) 11/06/18 05:13 RBC Morphology Normal (NORMAL) 11/06/18 05:13 Sodium 127 mmol/L (136-145) L 11/09/18 04:28 Corrected Sodium TNP 11/09/18 04:28 Potassium 3.6 mmol/L (3.5-5.1) 11/09/18 04:28 Chloride 90 mmol/L (98-107) L 11/09/18 04:28 Carbon Dioxide 30.8 mmol/L (21-32) 11/09/18 04:28 BUN 9 mg/dL (7-18) 11/09/18 04:28 Creatinine 0.62 mg/dL (0.70-1.30) L 11/09/18 04:28 Est GFR (MDRD) Af Amer > 60 (>60) 11/09/18 04:28 Est GFR (MDRD) Non-Af > 60 (>60) 11/09/18 04:28 Glucose 102 mg/dL (65-99) H 11/09/18 04:28 POC Glucose (mg/dL) 169 mg/dL (65-99) H 11/09/18 11:26 Calcium 9.4 mg/dL (8.5-10.1) 11/09/18 04:28 Corrected Calcium 10.6 mg/dL (8.5-10.1) H 11/09/18 04:28 Magnesium 1.7 mg/dL (1.7-2.9) 11/09/18 04:28 Total Bilirubin 0.50 mg/dL (0.2-1.0) 11/09/18 04:28 AST 19 Units/L (15-37) 11/09/18 04:28 ALT 13 Units/L (12-78) 11/09/18 04:28 Alkaline Phosphatase 68 Units/L (46-116) 11/09/18 04:28 Total Protein 7.1 g/dL (6.4-8.2) 11/09/18 04:28 Albumin 2.5 g/dL (3.4-5.0) L 11/09/18 04:28 Globulin 4.6 g/dL (2.5-4.5) H 11/09/18 04:28 Albumin/Globulin Ratio 0.5 Ratio (1.1-2.1) L 11/09/18 04:28 Tobramycin Trough 0.2 ug/mL (0-2) 11/08/18 12:13 - Plan (1) Bronchopneumonia Status: Acute Plan: IV ANTIBIOTICS, RESPIRATORY TX, SUPPLEMENTAL OXYGEN, CONTINUE TO MONITOR (2) Pulmonary fibrosis Status: Chronic (3) COPD (chronic obstructive pulmonary disease) Status: Chronic Qualifiers: COPD type: COPD with acute lower respiratory infection Qualified Code(s): J44.0 - Chronic obstructive pulmonary disease with acute lower respiratory infection
[2018-11-09] MEDS: MAGNESIUM SULFATE 1 GRAM/100 mL PREMIX 1 GM/100 ML BAG IV PRN ×2 (13:57→15:43)
[2018-11-09] MEDS ORDERED: COLACE CAP 100 MG PO SCH (21:00)
[2018-11-09] MEDS: SNACK - Diabetic Appropriate PO SCH (21:06)
[2018-11-09] MEDS: HumuLIN R SUBCUT PRN (21:07)
[2018-11-10] MEDS: NS 1000 ML 1,000 ML IV SCH (00:43)
[2018-11-10] MEDS: HumuLIN R SUBCUT PRN (00:46)
[2018-11-10] MEDS: PROVENTIL NEB TX 0.083% 2.5MG/ 3ML NEB SCH ×3 (01:00→09:53)
[2018-11-10 05:21] LABS: BASOPHILS % (AUTO) 0.5 % (0.2-1.0); EOSINOPHILS # (AUTO) 0.3 x10^3/uL (0.0-0.2); EOSINOPHILS % (AUTO) 2.8 % (0.9-2.9); HEMATOCRIT 38.5 % (42.0-54.0); HEMOGLOBIN 13.4 g/dL (13.5-18.0); LYMPHOCYTES % (AUTO) 9.7 % (21.0-51.0); MEAN CORPUSCULAR HGB CONC 34.7 g/dL (33.0-35.0); MEAN CORPUSCULAR VOLUME 83.4 fL (80.0-100.0); MEAN PLATELET VOLUME 8.2 fL (7.4-11.0); MONOCYTES # (AUTO) 1.6 x10^3/uL (0.3-0.8); MONOCYTES % (AUTO) 16.1 % (0.0-13.0); NEUTROPHILS # (AUTO) 7.3 x10^3/uL (2.2-4.8); NEUTROPHILS % (AUTO) 70.9 % (42.0-75.0); PLATELET COUNT 225 X10^3/uL (150.0-450.0); RED BLOOD COUNT 4.61 X10^6/uL (4.7-6.0); WHITE BLOOD COUNT 10.2 X10^3/uL (3.6-10.0)
[2018-11-10 05:29] LABS: BLOOD UREA NITROGEN 8 mg/dL (7-18); CALCIUM 9.2 mg/dL (8.5-10.1); CARBON DIOXIDE 31.1 mmol/L (21-32); CHLORIDE 89 mmol/L (98-107); CREATININE 0.67 mg/dL (0.70-1.30); eGFR NON BLACK RACES > 60 (>60)
[2018-11-10 05:50] LABS: COR NA(FOR HYPERGLY) 126 mmol/L (136-145); SODIUM 126 mmol/L (136-145)
--- NOTE | 2018-11-10 06:26 | RAD ---
HISTORY: Bronchopneumonia Study: Chest AP portable Comparison: 11/09/2018, 11/08/2018 Findings: The heart is within normal limits in size. No congestive heart failure is noted. Severe diffuse chronic interstitial lung disease is present not significantly changed from the prior examination. Postsurgical changes are present on the right with right apical pleural thickening which is stable. No definite alveolar infiltrates are identified. No definite pleural effusions are identified. Subtle airspace disease or acute pneumonitis would be difficult to detect in a patient with chronic lung disease of this severe degree. IMPRESSION: No change severe diffuse bilateral chronic interstitial lung disease Postsurgical changes and right apical pleural thickening, stable Reported By:
[2018-11-10] MEDS ORDERED: PHARMACY COMMENT IV NR (08:00)
[2018-11-10] MEDS: ROBITUSSIN DM PO SCH (08:20)
[2018-11-10] MEDS: NORVASC TAB 10 MG PO SCH (08:21)
[2018-11-10] MEDS: PROTONIX TAB 40 MG PO SCH (08:21)
[2018-11-10] MEDS: VSL#3 PO SCH (08:21)
[2018-11-10] MEDS: LOPRESSOR TAB 25 MG PO SCH (08:22)
[2018-11-10] MEDS: CHLORTHALIDONE PO SCH (08:22)
[2018-11-10] MEDS: PREDNISONE TAB 5 MG PO SCH (08:22)
[2018-11-10] MEDS: SENOKOT PO SCH (08:24)
[2018-11-10] MEDS: VIBRAMYCIN 100 MG in D5W 250 ML IV 250 ML IV SCH (08:25)
[2018-11-10 08:28] LABS: CREATININE 0.73 mg/dL (0.70-1.30); TOBRAMYCIN,TROUGH 0.4 ug/mL (0-2)
[2018-11-10] MEDS: LOVENOX INJ 40 MG SYR SC SCH (08:28)
[2018-11-10] MEDS: LANTUS SC SCH (08:30)
[2018-11-10] MEDS: PULMICORT NEB TX 0.5 MG NEB SCH (09:53)
[2018-11-10 10:45] VITALS: BP 146/70
[2018-11-10] MEDS: NS IV SCH (11:40)
[2018-11-10] MEDS: TOBRAMYCIN SULFATE IV SCH (11:40)
== END 2018-11-10 13:30 | disposition home or self-care (01) | DRG 178 ==
LOC: MED/SURG
PROVIDERS: ADMIT Internal Medicine; ATTEND Internal Medicine
DX: J84.10 Pulmonary fibrosis, unspecified; J15.8 Pneumonia due to other specified bacteria; J44.0 Chronic obstructive pulmonary disease with (acute) lower respiratory infection; Z91.81 History of falling; R26.89 Other abnormalities of gait and mobility
CPT/HCPCS: 36415; 71010; 71020; 71045; 71046; 80048; 80053; 80200; 82565; 83735; 85025; 87040; 87070; 87077; 87186; 87205; 94640; 94760; 97110; 97162; 97530; A4222; G0378; J0713; J1650; J1815; J1956; J3260; J3475; J3490; J7030; J7050; J7060; J7512; J7613; J7626

== ENCOUNTER 2019-01-06 11:13 | Inpatient (IN) ==
[2019-01-06 14:56] LABS: BASOPHILS # (AUTO) 0.1 X10^3/uL (0.0-0.1); BASOPHILS % (AUTO) 0.6 % (0.2-1.0); EOSINOPHILS % (AUTO) 0.1 % (0.9-2.9); HEMATOCRIT 35.4 % (42.0-54.0); HEMOGLOBIN 11.6 g/dL (13.5-18.0); LYMPHOCYTES # (AUTO) 0.8 X10^3/uL (1.3-2.9); LYMPHOCYTES % (AUTO) 4.3 % (21.0-51.0); MEAN CORPUSCULAR HEMOGLOBIN 27.7 pg (27.0-34.0); MEAN CORPUSCULAR HGB CONC 32.8 g/dL (33.0-35.0); MEAN CORPUSCULAR VOLUME 84.2 fL (80.0-100.0); MONOCYTES # (AUTO) 0.8 x10^3/uL (0.3-0.8); MONOCYTES % (AUTO) 4.3 % (0.0-13.0); NEUTROPHILS # (AUTO) 15.8 x10^3/uL (2.2-4.8); NEUTROPHILS % (AUTO) 90.7 % (42.0-75.0); PLATELET COUNT 158 X10^3/uL (150.0-450.0); RED CELL DISTRIBUTION WIDTH 16.4 % (11.6-16.5); WHITE BLOOD COUNT 17.4 X10^3/uL (3.6-10.0)
[2019-01-06] MEDS: LASIX IVP SCH ×2 (15:00→20:46)
[2019-01-06 15:09] LABS: BAND NEUTROPHILS % 7 % (0-10); PLATELET MORPHOLOGY COMMENT NORMAL (NORMAL)
[2019-01-06 15:17] LABS: ALANINE AMINOTRANSFERASE 11 Units/L (12-78); ALBUMIN 2.8 g/dL (3.4-5.0); ALKALINE PHOSPHATASE 91 Units/L (46-116); ASPARTATE AMINO TRANSFERASE 16 Units/L (15-37); BLOOD UREA NITROGEN 22 mg/dL (7-18); CALCIUM 8.9 mg/dL (8.5-10.1); CARBON DIOXIDE 32.3 mmol/L (21-32); CHLORIDE 96 mmol/L (98-107); COR CA(FOR HYPOALB) 9.9 mg/dL (8.5-10.1); COR NA(FOR HYPERGLY) 137 mmol/L (136-145); CREATINE KINASE 22 Units/L (39-308); CREATINE KINASE MB 3.3 ng/mL (0-4.0); SODIUM 133 mmol/L (136-145); TOTAL PROTEIN 6.4 g/dL (6.4-8.2); TROPONIN I < 0.02 ng/mL (0-1.5); eGFR NON BLACK RACES > 60 (>60)
--- NOTE | 2019-01-06 15:30 | RAD ---
Chest, 1 view Indication: Shortness of breath Comparison: 11/10/2018 Findings: Severe basilar and subpleural predominant fibrosis is similar to prior. There are stable postsurgical changes on the right compatible with prior partial pneumonectomy with associated right apical pleural thickening. No superimposed dense infiltrate or pleural effusion identified. The cardiac silhouette is stable. Impression: Severe fibrosis and right-sided postsurgical changes without acute abnormality. Reported By:
[2019-01-06 16:01] VITALS: BMI 26.4
[2019-01-06] MEDS: PROVENTIL NEB TX 0.083% 2.5MG/ 3ML NEB SCH ×2 (17:57→20:31)
[2019-01-06] MEDS: PULMICORT NEB TX 0.5 MG NEB SCH (20:31)
[2019-01-06 21:06] LABS: CKMB % 13.2 % (<4); CREATINE KINASE 25 Units/L (39-308); CREATINE KINASE MB 3.3 ng/mL (0-4.0); TROPONIN I < 0.02 ng/mL (0-1.5)
[2019-01-07] MEDS: PROVENTIL NEB TX 0.083% 2.5MG/ 3ML NEB SCH ×3 (00:05→09:42)
[2019-01-07 03:24] LABS: BASOPHILS # (AUTO) 0.1 X10^3/uL (0.0-0.1); BASOPHILS % (AUTO) 0.9 % (0.2-1.0); EOSINOPHILS # (AUTO) 0.1 x10^3/uL (0.0-0.2); EOSINOPHILS % (AUTO) 0.5 % (0.9-2.9); HEMATOCRIT 34.5 % (42.0-54.0); HEMOGLOBIN 11.3 g/dL (13.5-18.0); LYMPHOCYTES # (AUTO) 1.6 X10^3/uL (1.3-2.9); LYMPHOCYTES % (AUTO) 10.3 % (21.0-51.0); MEAN CORPUSCULAR HEMOGLOBIN 27.6 pg (27.0-34.0); MEAN CORPUSCULAR HGB CONC 32.7 g/dL (33.0-35.0); MEAN CORPUSCULAR VOLUME 84.2 fL (80.0-100.0); MEAN PLATELET VOLUME 7.8 fL (7.4-11.0); MONOCYTES # (AUTO) 1.2 x10^3/uL (0.3-0.8); MONOCYTES % (AUTO) 7.8 % (0.0-13.0); NEUTROPHILS # (AUTO) 12.6 x10^3/uL (2.2-4.8); NEUTROPHILS % (AUTO) 80.5 % (42.0-75.0); PLATELET COUNT 151 X10^3/uL (150.0-450.0); RED BLOOD COUNT 4.09 X10^6/uL (4.7-6.0); WHITE BLOOD COUNT 15.6 X10^3/uL (3.6-10.0)
[2019-01-07 03:34] LABS: BAND NEUTROPHILS % 1 % (0-10); PLATELET MORPHOLOGY COMMENT NORMAL (NORMAL)
[2019-01-07 03:40] LABS: ALANINE AMINOTRANSFERASE 10 Units/L (12-78); ALBUMIN 2.8 g/dL (3.4-5.0); ALKALINE PHOSPHATASE 71 Units/L (46-116); ASPARTATE AMINO TRANSFERASE 13 Units/L (15-37); BLOOD UREA NITROGEN 19 mg/dL (7-18); CALCIUM 8.8 mg/dL (8.5-10.1); CARBON DIOXIDE 35.1 mmol/L (21-32); CHLORIDE 96 mmol/L (98-107); COR CA(FOR HYPOALB) 9.8 mg/dL (8.5-10.1); COR NA(FOR HYPERGLY) 138 mmol/L (136-145); CREATININE 0.96 mg/dL (0.70-1.30); SODIUM 136 mmol/L (136-145); TOTAL PROTEIN 6.3 g/dL (6.4-8.2); eGFR NON BLACK RACES > 60 (>60)
[2019-01-07 03:56] LABS: CREATINE KINASE 20 Units/L (39-308); CREATINE KINASE MB 3.2 ng/mL (0-4.0); TROPONIN I < 0.02 ng/mL (0-1.5)
[2019-01-07] MEDS ORDERED: MICRO K EXTEN CAP 10 MEQ PO PRN (05:31)
[2019-01-07] MEDS ORDERED: POTASSIUM CHL 40 MEQ/NS 0.45% 500 ML IV PRN (05:31)
[2019-01-07] MEDS ORDERED: KLOR-CON PO PRN (05:31)
[2019-01-07] MEDS ORDERED: POTASSIUM CHLORIDE LIQ 20 MEQ UDC PO PRN (05:31)
[2019-01-07] MEDS ORDERED: K-RIDER 10 MEQ/NS 100 ML 10 MEQ/100 ML BAG IV PRN (05:31)
[2019-01-07] MEDS ORDERED: POTASSIUM CHL 60 MEQ/NS 0.45% 500 ML IV PRN (05:31)
[2019-01-07] MEDS: HumuLIN R SUBCUT PRN ×3 (05:45→16:51)
--- NOTE | 2019-01-07 06:05 | RAD ---
HISTORY: Shortness of breath Study: Chest AP portable Comparison: 01/06/2019 Findings: The heart is upper limits normal in size. No congestive heart failure is noted. Pleuro parenchymal scarring is present right lung apex. There is severe diffuse chronic interstitial lung disease unchanged from the prior examination. An acute pneumonitis would be difficult to exclude in a patient with chronic lung disease this severe. There are no alveolar infiltrates or pleural effusions. The bony thorax is intact. IMPRESSION: Severe diffuse chronic fibrotic interstitial lung disease, stable Apical pleural thickening on the right also stable Reported By:
[2019-01-07] MEDS ORDERED: NS 100 ML IV 100 ML ONE (06:28)
[2019-01-07] MEDS: MAGNESIUM SULFATE 1 GRAM/100 mL PREMIX 1 GM/100 ML BAG IV PRN ×4 (06:49→10:50)
[2019-01-07] MEDS: K-DUR TAB 20 MEQ PO PRN (06:49)
[2019-01-07] MEDS: LASIX IVP SCH ×2 (08:20→21:04)
[2019-01-07] MEDS ORDERED: PHARMACY CONSULT - DOSE _____ XX SCH (09:00)
[2019-01-07] MEDS: PULMICORT NEB TX 0.5 MG NEB SCH ×2 (09:26→20:00)
[2019-01-07] MEDS: XOPENEX 1.25 MG/3 ML NEBULE NEB SCH ×3 (10:30→20:00)
[2019-01-07] MEDS ORDERED: SALINE 3% 15 ML NEB TX NEB ONE (10:39)
[2019-01-07] MEDS: LOVENOX INJ 40 MG SYR SC SCH (12:42)
[2019-01-07] MEDS: LANOXIN PO SCH (12:48)
[2019-01-07] MEDS ORDERED: GUAIFENESIN 200 MG PO PRN (20:06)
[2019-01-07] MEDS ORDERED: ZyrTEC TAB 10 MG PO PRN (20:06)
[2019-01-07] MEDS ORDERED: MOBIC TAB 15 MG PO PRN (20:06)
[2019-01-07] MEDS ORDERED: ROBITUSSIN (PLAIN) PO PRN (20:40)
[2019-01-07] MEDS ORDERED: LANTUS SC SCH (21:00)
[2019-01-07] MEDS ORDERED: PATIENT'S HOME MEDICATION (Cholecalciferol (Vitamin D3) [Vitamin D3] 1 CAP) PO SCH (21:00)
[2019-01-07] MEDS ORDERED: CA D3 MAG OX ZINC COP MANG BOR PO SCH (21:00)
[2019-01-07] MEDS ORDERED: VOLTAREN 1 % GEL MULTI DOSE TUBE TOP SCH (21:00)
[2019-01-07] MEDS: AZULFIDINE PO SCH (21:03)
[2019-01-07] MEDS: NEURONTIN CAP 400 MG PO SCH (21:03)
[2019-01-07] MEDS: KLONOPIN TAB 1 MG PO SCH (21:04)
[2019-01-07] MEDS: VITAMIN D3 PO SCH (21:04)
[2019-01-07] MEDS: SENOKOT PO SCH (21:04)
[2019-01-07] MEDS: LOPRESSOR TAB 50 MG PO SCH (21:04)
[2019-01-07] MEDS: LIPITOR TAB 40 MG PO SCH (21:04)
[2019-01-07] MEDS: DESYREL PO SCH (21:05)
[2019-01-07] MEDS: SNACK - Diabetic Appropriate PO SCH (21:06)
[2019-01-08 05:04] LABS: BASOPHILS # (AUTO) 0.1 X10^3/uL (0.0-0.1); BASOPHILS % (AUTO) 0.7 % (0.2-1.0); EOSINOPHILS # (AUTO) 0.1 x10^3/uL (0.0-0.2); EOSINOPHILS % (AUTO) 0.9 % (0.9-2.9); HEMATOCRIT 35.6 % (42.0-54.0); HEMOGLOBIN 11.4 g/dL (13.5-18.0); LYMPHOCYTES # (AUTO) 1.4 X10^3/uL (1.3-2.9); LYMPHOCYTES % (AUTO) 10.1 % (21.0-51.0); MEAN CORPUSCULAR HEMOGLOBIN 27.2 pg (27.0-34.0); MEAN PLATELET VOLUME 8.8 fL (7.4-11.0); MONOCYTES # (AUTO) 1.4 x10^3/uL (0.3-0.8); MONOCYTES % (AUTO) 10.3 % (0.0-13.0); NEUTROPHILS # (AUTO) 10.6 x10^3/uL (2.2-4.8); PLATELET COUNT 168 X10^3/uL (150.0-450.0); RED BLOOD COUNT 4.19 X10^6/uL (4.7-6.0); RED CELL DISTRIBUTION WIDTH 16.6 % (11.6-16.5); WHITE BLOOD COUNT 13.6 X10^3/uL (3.6-10.0)
[2019-01-08] MEDS: NEURONTIN CAP 400 MG PO SCH ×3 (05:08→21:12)
[2019-01-08] MEDS: XOPENEX 1.25 MG/3 ML NEBULE NEB SCH ×4 (05:13→21:35)
[2019-01-08 05:34] LABS: ALANINE AMINOTRANSFERASE 11 Units/L (12-78); ALBUMIN 2.9 g/dL (3.4-5.0); ALKALINE PHOSPHATASE 71 Units/L (46-116); ASPARTATE AMINO TRANSFERASE 17 Units/L (15-37); BLOOD UREA NITROGEN 16 mg/dL (7-18); CALCIUM 9.1 mg/dL (8.5-10.1); CARBON DIOXIDE 33.8 mmol/L (21-32); CHLORIDE 96 mmol/L (98-107); COR NA(FOR HYPERGLY) 137 mmol/L (136-145); CREATININE 1.14 mg/dL (0.70-1.30); MAGNESIUM 1.9 mg/dL (1.7-2.9); SODIUM 135 mmol/L (136-145); TOTAL PROTEIN 6.6 g/dL (6.4-8.2); eGFR NON BLACK RACES > 60 (>60)
--- NOTE | 2019-01-08 06:58 | RAD ---
HISTORY: Shortness of breath Study: Chest AP portable Comparison: 01/07/2019 Findings: The heart is upper limits normal in size. Stable pleuro parenchymal scarring right lung apex. Diffuse severe chronic interstitial lung disease again identified. No definite acute alveolar infiltrates or pleural effusions are identified. The bony thorax appears intact. IMPRESSION: Severe diffuse chronic interstitial lung disease stable when compared with the prior examination. With this degree of chronic lung disease present a superimposed acute pneumonitis would be difficult to exclude and clinical correlation is recommended. Stable right apical pleuroparenchymal scarring Reported By:
[2019-01-08] MEDS: PULMICORT NEB TX 0.5 MG NEB SCH ×2 (08:23→21:36)
[2019-01-08] MEDS ORDERED: VOLTAREN 1 % GEL MULTI DOSE TUBE TOP PRN (09:00)
[2019-01-08] MEDS ORDERED: SPIRIVA HANDIHALER (30 DOSE) IN SCH (09:00)
[2019-01-08] MEDS ORDERED: PATIENT'S HOME MEDICATION (Tiotropium Bromide 1 CAP) IN SCH (09:00)
[2019-01-08] MEDS: VITAMIN B-12 PO SCH (09:20)
[2019-01-08] MEDS: COZAAR PO SCH (09:20)
[2019-01-08] MEDS: KLONOPIN TAB 1 MG PO SCH ×3 (09:21→21:13)
[2019-01-08] MEDS: LANOXIN PO SCH (09:22)
[2019-01-08] MEDS: LOPRESSOR TAB 50 MG PO SCH ×2 (09:23→21:16)
[2019-01-08] MEDS: ASPIRIN EC 81 MG PO SCH (09:23)
[2019-01-08] MEDS: PROTONIX TAB 40 MG PO SCH (09:23)
[2019-01-08] MEDS: SENOKOT PO SCH ×2 (09:23→21:14)
[2019-01-08] MEDS: ACTOS PO SCH (09:23)
[2019-01-08] MEDS: VITAMIN D3 PO SCH ×2 (09:24→21:13)
[2019-01-08] MEDS: AZULFIDINE PO SCH ×2 (09:24→21:14)
[2019-01-08] MEDS: LASIX IVP SCH ×2 (09:25→21:17)
[2019-01-08] MEDS: LOVENOX INJ 40 MG SYR SC SCH (09:25)
[2019-01-08] MEDS: FLONASE NASAL SPRAY ENOSTRIL SCH (09:26)
[2019-01-08] MEDS: OSCAL+D or CALTRATE+D PO SCH (09:32)
--- NOTE | 2019-01-08 10:58 | DR.UPDATE ---
H&P Update History and Physical Update: History and Physical reviewed and patient examined. Changes noted: Yes with the following: WAS A DIRECT ADMISSION TO THE HOSPITAL FROM HOME. HE HAS VISITING NURSES THAT SEE HIM AT HOME. VISITING NUSES CALLED AND REPORTED THAT PATIENT WAS SEVERELY SHORT OF BREATH AND WAS NOTED WITH 2+ PITTING EDEMA AND ERYTHEMA. HE WAS RECENTLY DISCHARGED FROM THE [facility] IN [place], [place] FOR RESPIRATORY DISTRESS, PNEUMONIA, AND AN ANTIBIOTIC RESISTANT BACTRIA. ON AUSCULTATION OF ILANA G LOMBARDO, HE IS NOTED WITH SCATTERED WHEEZING THROUGHOUT. ON ARRIVAL TO THE HOSPITAL, VITALS WERE 98.0-75-20-96%-137/67. LABS WERE OBTAINED. ABNORMAL LAB VALUES INCLUDE THE FOLLOWING: WBC 17.4, RBC 4.20, HGB 11.6, HCT 35.4, SODIUM 133, CHLORIDE 96, CARBON DIOXIDE 32.3, BUN 22, GLUCOSE 249, ALT 11, CREATINE KINASE 22, ALBUMIN 2.8. CARDIAC ENZYMES ARE OTHERWISE WITHIN NORMAL LIMITS. SPUTUM CULTURE PENDING. A CHEST XRAY WAS OBTAINED AND REVEALED: SEVERE FIBROSIS AND RIGHT SIDED POSTSURGICAL CHANGES WITHOUT ACUTE ABNORMALITY. EKG REVEALED: SINUS RHYTHM WITH HR 60. HE WAS STARTED ON LASIX 20MG IV BID, RESPIRATORY TREATMENTS, SUPPLEMENTAL OXYGEN, AND HOME MEDICATIONS WERE RESUMED. OTHERWISE, WE PLAN TO FOLLOW UP WITH AM LABS AND CONTINUE TO MONITOR.
[2019-01-08] MEDS: HumuLIN R SUBCUT PRN ×2 (11:59→17:09)
[2019-01-08] MEDS ORDERED: SNACK - Diabetic Appropriate PO SCH (20:00)
[2019-01-08] MEDS: DESYREL PO SCH (21:14)
[2019-01-08] MEDS: LIPITOR TAB 40 MG PO SCH (21:15)
[2019-01-08] MEDS: LANTUS SC SCH (21:16)
[2019-01-08] MEDS: SNACK - Diabetic Appropriate PO SCH (21:17)
--- NOTE | 2019-01-08 21:44 | PCM.PROG ---
Progress Note - Progress Note for Day of Date of Exam: 01/07/19 - Subjective Subjective: IS BEING TREATED FOR LOWER EXTREMITY SWELLING AND SHORTNESS OF BREATH. TODAY, HE IS ALERT AND ORIENTED, LYING IN BED ON MORNING ROUNDS. HE CONTINUES WITH 2+ PITTING EDEMA TO LOWER EXTREMITIES AND SHORTNESS OF BREATH. HE DENIES MUCH IMPROVEMENT SINCE ADMISSION. HIS VITALS THIS MORNING ARE: 98.1-98-20-96%-121/60. LABS WERE OBTAINED. ABNORMAL LAB VALUES INCLUDE THE FOLLOWING: WBC 15.6, RBC 4.09, HGB 11.3, HCT 34.5, CHLORIDE 96, CARBON DIOXIDE 35.1, BUN 19, GLUCOSE 186, MAGNESIUM 1.4, AST 13, ALT 10, TOTAL PROTEIN 6.3, ALBUMIN 2.8. A CHEST XRAY WAS OBTAINED AND REVEALED: Severe diffuse chronic fibrotic interstitial lung disease, stable. Apical pleural thickening on the right also stable. TODAY, WE PLAN TO OBTAIN AN ECHO, SPUTUM CULTURE, AND START DIGOXIN 0.125MCG PO DAILY. WE WILL CHANGE NEB TREATMENTS TO XOPENEX. OTHERWISE, WE WILL FOLLOW UP WITH AM LABS AND CHEST XRAY AND CONTINUE TO MONITOR. - Past Medical Family Social History Past Med/Fam/Surg Hx: No changes since H&P Allergies: Allergies No Known Drug Allergies Allergy (Verified 04/09/18 16:19) - Review of Systems ROS: No change since H&P - Vital Signs and I&O's Vital Signs: Temperature 97.9 F Pulse Rate [Right Brachial] 69 Pulse Rate 86 Respiratory Rate 22 Blood Pressure [Right Arm] 100/50 Blood Pressure [Left Arm] 140/64 Blood Pressure 146/70 O2 Sat by Pulse Oximetry 92 Intake and Output: Intake & Output 01/06/19 01/07/19 01/08/19 01/09/19 11:59 11:59 11:59 11:59 Intake Total 670 / 670 1300 / 1300 700 / 700 Output Total 300 / 300 Balance 370 / 370 1300 / 1300 700 / 700 - Physical Exam Oriented: Normal Eyes: Normal Ear: Normal Nose: Normal Throat: Normal Respiratory: Generalized, Wheezes Cardiovascular: Normal : Normal Auscultation: Bowel Sounds: Normal Palpation: Normal Tenderness: Normal Skin: Normal Musculoskeletal: Right, Left, Leg, Swelling, Tender Psychiatric: Normal Mood Description: Calm Affect: Normal Speech Pattern: Clear, Appropriate - Laboratory and Diagnostics Result Diagrams: 01/08/19 04:03 01/08/19 04:03 Labs: 01/07/19 12:10 Sputum - Expectorated Sputum Sputum Culture - Preliminary 01/07/19 12:10 Sputum - Expectorated Sputum - Final Laboratory WBC 13.6 X10^3/uL (3.6-10.0) H 01/08/19 04:03 RBC 4.19 X10^6/uL (4.7-6.0) L 01/08/19 04:03 Hgb 11.4 g/dL (13.5-18.0) L 01/08/19 04:03 Hct 35.6 % (42.0-54.0) L 01/08/19 04:03 MCV 85.0 fL (80.0-100.0) 01/08/19 04:03 MCH 27.2 pg (27.0-34.0) 01/08/19 04:03 MCHC 32.0 g/dL (33.0-35.0) L 01/08/19 04:03 RDW 16.6 % (11.6-16.5) H 01/08/19 04:03 Plt Count 168 X10^3/uL (150.0-450.0) 01/08/19 04:03 Plt Count Comment Adequate (ADEQUATE) 01/07/19 03:05 MPV 8.8 fL (7.4-11.0) 01/08/19 04:03 Neut % (Auto) 78.0 % (42.0-75.0) H 01/08/19 04:03 Lymph % (Auto) 10.1 % (21.0-51.0) L 01/08/19 04:03 [place] % (Auto) 10.3 % (0.0-13.0) 01/08/19 04:03 Eos % (Auto) 0.9 % (0.9-2.9) 01/08/19 04:03 Baso % (Auto) 0.7 % (0.2-1.0) 01/08/19 04:03 Neut # (Auto) 10.6 x10^3/uL (2.2-4.8) H 01/08/19 04:03 Lymph # (Auto) 1.4 X10^3/uL (1.3-2.9) 01/08/19 04:03 [place] # (Auto) 1.4 x10^3/uL (0.3-0.8) H 01/08/19 04:03 Eos # (Auto) 0.1 x10^3/uL (0.0-0.2) 01/08/19 04:03 Baso # (Auto) 0.1 X10^3/uL (0.0-0.1) 01/08/19 04:03 Absolute Nucleated RBC 0.0 /100WBC 01/08/19 04:03 Total Counted 100 01/07/19 03:05 Neutrophils % (Manual) 82 % (39-76) H 01/07/19 03:05 Band Neutrophils % 1 % (0-10) 01/07/19 03:05 Lymphocytes % (Manual) 11 % (13-43) L 01/07/19 03:05 Monocytes % (Manual) 6 % (4-9) 01/07/19 03:05 Plt Morphology Comment Normal (NORMAL) 01/07/19 03:05 RBC Morphology Normal (NORMAL) 01/07/19 03:05 Sodium 135 mmol/L (136-145) L 01/08/19 04:03 Corrected Sodium 137 mmol/L (136-145) 01/08/19 04:03 Potassium 4.3 mmol/L (3.5-5.1) 01/08/19 04:03 Chloride 96 mmol/L (98-107) L 01/08/19 04:03 Carbon Dioxide 33.8 mmol/L (21-32) H 01/08/19 04:03 BUN 16 mg/dL (7-18) 01/08/19 04:03 Creatinine 1.14 mg/dL (0.70-1.30) 01/08/19 04:03 Est GFR (MDRD) Af Amer > 60 (>60) 01/08/19 04:03 Est GFR (MDRD) Non-Af > 60 (>60) 01/08/19 04:03 Glucose 169 mg/dL (65-99) H 01/08/19 04:03 Calcium 9.1 mg/dL (8.5-10.1) 01/08/19 04:03 Corrected Calcium 10.0 mg/dL (8.5-10.1) 01/08/19 04:03 Magnesium 1.9 mg/dL (1.7-2.9) 01/08/19 04:03 Total Bilirubin 0.30 mg/dL (0.2-1.0) 01/08/19 04:03 AST 17 Units/L (15-37) 01/08/19 04:03 ALT 11 Units/L (12-78) L 01/08/19 04:03 Alkaline Phosphatase 71 Units/L (46-116) 01/08/19 04:03 Creatine Kinase 20 Units/L (39-308) L 01/07/19 03:05 CK-MB (CK-2) 3.2 ng/mL (0-4.0) 01/07/19 03:05 CK/CKMB % Calc 16.0 % (<4) 01/07/19 03:05 Troponin I < 0.02 ng/mL (0-1.5) 01/07/19 03:05 Total Protein 6.6 g/dL (6.4-8.2) 01/08/19 04:03 Albumin 2.9 g/dL (3.4-5.0) L 01/08/19 04:03 Globulin 3.7 g/dL (2.5-4.5) 01/08/19 04:03 Albumin/Globulin Ratio 0.8 Ratio (1.1-2.1) L 01/08/19 04:03 Digoxin < 0.20 ng/mL (0.9-2) L 01/07/19 03:05 - Plan (1) Lower extremity edema Status: Acute Plan: IV LASIX, CONTINUE HOME MEDS, OBTAIN ECHO, CONTINUE TO MONITOR (2) Shortness of breath Status: Acute
[2019-01-08] MEDS: ZOSYN VIAL 3.375 GRAMS 3.375 G in NS 100 ML IV + SPIKE MINIBAG* 100 ML IV SCH (22:32)
[2019-01-09] MEDS: XOPENEX 1.25 MG/3 ML NEBULE NEB SCH ×4 (05:17→20:33)
[2019-01-09 05:36] LABS: BASOPHILS # (AUTO) 0.1 X10^3/uL (0.0-0.1); BASOPHILS % (AUTO) 0.7 % (0.2-1.0); EOSINOPHILS # (AUTO) 0.1 x10^3/uL (0.0-0.2); EOSINOPHILS % (AUTO) 0.9 % (0.9-2.9); HEMOGLOBIN 10.4 g/dL (13.5-18.0); LYMPHOCYTES # (AUTO) 1.2 X10^3/uL (1.3-2.9); LYMPHOCYTES % (AUTO) 8.8 % (21.0-51.0); MEAN CORPUSCULAR HEMOGLOBIN 27.8 pg (27.0-34.0); MEAN CORPUSCULAR HGB CONC 32.5 g/dL (33.0-35.0); MEAN CORPUSCULAR VOLUME 85.4 fL (80.0-100.0); MEAN PLATELET VOLUME 9.1 fL (7.4-11.0); MONOCYTES # (AUTO) 1.2 x10^3/uL (0.3-0.8); NEUTROPHILS # (AUTO) 11.1 x10^3/uL (2.2-4.8); NEUTROPHILS % (AUTO) 80.6 % (42.0-75.0); PLATELET COUNT 157 X10^3/uL (150.0-450.0); RED BLOOD COUNT 3.75 X10^6/uL (4.7-6.0); RED CELL DISTRIBUTION WIDTH 16.8 % (11.6-16.5); WHITE BLOOD COUNT 13.8 X10^3/uL (3.6-10.0)
[2019-01-09 05:49] LABS: ALBUMIN 2.6 g/dL (3.4-5.0); CARBON DIOXIDE 32.6 mmol/L (21-32); COR CA(FOR HYPOALB) 10.1 mg/dL (8.5-10.1); CREATININE 2.41 mg/dL (0.70-1.30); TOTAL PROTEIN 6.2 g/dL (6.4-8.2)
[2019-01-09] MEDS: ZOSYN VIAL 3.375 GRAMS 3.375 G in NS 100 ML IV + SPIKE MINIBAG* 100 ML IV SCH ×3 (05:56→21:30)
[2019-01-09] MEDS: NEURONTIN CAP 400 MG PO SCH ×3 (05:56→21:34)
--- NOTE | 2019-01-09 07:02 | RAD ---
HISTORY: Shortness of breath Study: Chest AP portable Comparison: 01/08/2019 Findings: Patient is rotated to the left. The heart remains upper limits normal in size. No congestive heart failure is noted. Diffuse severe chronic interstitial lung disease is present and unchanged. No definite alveolar infiltrates are identified. No pleural effusions are identified. The bony thorax appears intact. IMPRESSION: Diffuse severe chronic interstitial lung disease unchanged from the prior examination Reported By:
[2019-01-09] MEDS ORDERED: ZyrTEC TAB 10 MG PO PRN (08:00)
[2019-01-09] MEDS: PULMICORT NEB TX 0.5 MG NEB SCH ×2 (08:09→20:33)
[2019-01-09] MEDS ORDERED: NS 100 ML IV 100 ML ONE (08:13)
[2019-01-09] MEDS: VITAMIN B-12 PO SCH (09:26)
[2019-01-09] MEDS: ACTOS PO SCH (09:27)
[2019-01-09] MEDS: ASPIRIN EC 81 MG PO SCH (09:27)
[2019-01-09] MEDS: OSCAL+D or CALTRATE+D PO SCH (09:27)
[2019-01-09] MEDS: LOVENOX INJ 40 MG SYR SC SCH (09:27)
[2019-01-09] MEDS: AZULFIDINE PO SCH ×2 (09:27→21:33)
[2019-01-09] MEDS: PROTONIX TAB 40 MG PO SCH (09:27)
[2019-01-09] MEDS: SENOKOT PO SCH ×3 (09:27→21:35)
[2019-01-09] MEDS: COZAAR PO SCH (09:28)
[2019-01-09] MEDS: LANOXIN PO SCH (09:28)
[2019-01-09] MEDS: FLONASE NASAL SPRAY ENOSTRIL SCH (09:29)
[2019-01-09] MEDS: LOPRESSOR TAB 50 MG PO SCH ×2 (09:29→21:37)
[2019-01-09] MEDS ORDERED: NS 1000 ML 1,000 ML IV ONE (10:04)
[2019-01-09] MEDS: ALBUMIN HUMAN 25%- 100 ML 100 ML IV SCH (11:32)
[2019-01-09] MEDS: VITAMIN D3 PO SCH ×2 (11:35→21:34)
[2019-01-09] MEDS: HumuLIN R SUBCUT PRN ×2 (11:40→17:54)
[2019-01-09] MEDS: NS 1000 ML 1,000 ML IV SCH ×2 (14:30→19:13)
[2019-01-09] MEDS: SNACK - Diabetic Appropriate PO SCH (21:28)
[2019-01-09] MEDS: DESYREL PO SCH (21:33)
[2019-01-09] MEDS: LIPITOR TAB 40 MG PO SCH (21:34)
[2019-01-09] MEDS: LANTUS SC SCH (21:36)
[2019-01-10] MEDS: NS 1000 ML 1,000 ML IV SCH ×5 (00:45→23:19)
[2019-01-10] MEDS: XOPENEX 1.25 MG/3 ML NEBULE NEB SCH ×3 (04:00→20:40)
[2019-01-10] MEDS: ZOSYN VIAL 3.375 GRAMS 3.375 G in NS 100 ML IV + SPIKE MINIBAG* 100 ML IV SCH (05:32)
[2019-01-10] MEDS: NEURONTIN CAP 400 MG PO SCH ×3 (05:34→21:35)
[2019-01-10] MEDS: HumuLIN R SUBCUT PRN ×4 (05:38→20:46)
--- NOTE | 2019-01-10 06:11 | RAD ---
Examination: AP chest, two views History: SOB Comparison 01/09/2019 Findings: Unchanged heart size and extensive bilateral interstitial disease, likely chronic fibrosis. There is no evidence for complicating pneumothorax or developing consolidation or large pleural effusion. Impression: No change. Continued advanced interstitial lung disease likely chronic. Because of the severely of this process, an acute superimposed infiltrate would be difficult to identify. Reported By:
[2019-01-10 06:14] LABS: BASOPHILS # (AUTO) 0.1 X10^3/uL (0.0-0.1); BASOPHILS % (AUTO) 0.6 % (0.2-1.0); EOSINOPHILS # (AUTO) 0.1 x10^3/uL (0.0-0.2); HEMATOCRIT 27.3 % (42.0-54.0); HEMOGLOBIN 9.3 g/dL (13.5-18.0); LYMPHOCYTES # (AUTO) 0.6 X10^3/uL (1.3-2.9); LYMPHOCYTES % (AUTO) 6.5 % (21.0-51.0); MEAN CORPUSCULAR HEMOGLOBIN 28.9 pg (27.0-34.0); MEAN CORPUSCULAR HGB CONC 34.1 g/dL (33.0-35.0); MEAN CORPUSCULAR VOLUME 84.7 fL (80.0-100.0); MEAN PLATELET VOLUME 8.2 fL (7.4-11.0); MONOCYTES # (AUTO) 0.9 x10^3/uL (0.3-0.8); MONOCYTES % (AUTO) 10.3 % (0.0-13.0); NEUTROPHILS # (AUTO) 7.2 x10^3/uL (2.2-4.8); NEUTROPHILS % (AUTO) 81.6 % (42.0-75.0); PLATELET COUNT 143 X10^3/uL (150.0-450.0); RED BLOOD COUNT 3.22 X10^6/uL (4.7-6.0); RED CELL DISTRIBUTION WIDTH 16.6 % (11.6-16.5); WHITE BLOOD COUNT 8.8 X10^3/uL (3.6-10.0)
[2019-01-10 06:24] LABS: ALANINE AMINOTRANSFERASE 9 Units/L (12-78); ALBUMIN 2.5 g/dL (3.4-5.0); ALKALINE PHOSPHATASE 55 Units/L (46-116); ASPARTATE AMINO TRANSFERASE 12 Units/L (15-37); BLOOD UREA NITROGEN 23 mg/dL (7-18); CALCIUM 8.7 mg/dL (8.5-10.1); CARBON DIOXIDE 30.5 mmol/L (21-32); CHLORIDE 102 mmol/L (98-107); COR CA(FOR HYPOALB) 9.9 mg/dL (8.5-10.1); COR NA(FOR HYPERGLY) 139 mmol/L (136-145); CREATININE 1.06 mg/dL (0.70-1.30); SODIUM 137 mmol/L (136-145); TOTAL PROTEIN 5.7 g/dL (6.4-8.2); eGFR NON BLACK RACES > 60 (>60)
[2019-01-10] MEDS: PULMICORT NEB TX 0.5 MG NEB SCH ×2 (08:47→20:40)
[2019-01-10] MEDS: LOVENOX INJ 40 MG SYR SC SCH (08:48)
[2019-01-10] MEDS: AZULFIDINE PO SCH ×2 (08:49→20:54)
[2019-01-10] MEDS: ASPIRIN EC 81 MG PO SCH (08:50)
[2019-01-10] MEDS: OSCAL+D or CALTRATE+D PO SCH (08:50)
[2019-01-10] MEDS: ACTOS PO SCH (08:50)
[2019-01-10] MEDS: ALBUMIN HUMAN 25%- 100 ML 100 ML IV SCH (08:50)
[2019-01-10] MEDS: SENOKOT PO SCH ×3 (08:50→21:06)
[2019-01-10] MEDS: PROTONIX TAB 40 MG PO SCH (08:50)
[2019-01-10] MEDS: VITAMIN D3 PO SCH ×2 (08:50→21:03)
[2019-01-10] MEDS: FLONASE NASAL SPRAY ENOSTRIL SCH (08:52)
[2019-01-10] MEDS: LOPRESSOR TAB 50 MG PO SCH ×2 (08:52→21:05)
[2019-01-10] MEDS: LANOXIN PO SCH (08:52)
[2019-01-10] MEDS: VITAMIN B-12 PO SCH (08:52)
[2019-01-10] MEDS: COZAAR PO SCH (08:52)
[2019-01-10 10:03] LABS: ABG BASE EXCESS 9.3 mmol/L (-2.0-2.0)
[2019-01-10 10:08] LABS: ABG ALLEN TEST POS; ABG HCO3 34.8 mmol/L (22-26)
[2019-01-10] MEDS: SOLU-Medrol 40 MG VIAL IVP SCH ×3 (11:02→21:03)
[2019-01-10] MEDS: FORTAZ or TAZICEF VIAL INJ IVP SCH ×2 (14:27→21:10)
[2019-01-10] MEDS: LANTUS SC SCH (20:49)
[2019-01-10] MEDS: LIPITOR TAB 40 MG PO SCH (20:53)
[2019-01-10] MEDS: DESYREL PO SCH (20:55)
--- NOTE | 2019-01-10 20:56 | PCM.PROG ---
Progress Note - Progress Note for Day of Date of Exam: 01/08/19 - Subjective Subjective: IS BEING TREATED FOR LOWER EXTREMITY SWELLING AND SHORTNESS OF BREATH. TODAY, HE IS ALERT AND ORIENTED, LYING IN BED ON MORNING ROUNDS. HE CONTINUES WITH 1+ PITTING EDEMA TO LOWER EXTREMITIES AND SHORTNESS OF BREATH. HE REPORTS THAT SHORTNESS OF BREATH SEEMS TO BE WORSE TODAY. HE ALSO REPORTS GENERALIZED WEAKNESS. HIS VITALS THIS MORNING ARE: 98.4-86-18-96%-116/56. LABS WERE OBTAINED. ABNORMAL LAB VALUES INCLUDE THE FOLLOWING: WBC 13.6, RBC 4.19, HGB 11.4, HCT 35.6, SODIUM 135, CHLORIDE 96, CARBON DIOXIDE 33.8, GLUCOSE 169, ALT 11, ALBUMIN 2.9. SPUTUM CULTURE IS PENDING. A CHEST XRAY WAS OBTAINED AND REVEALED: Severe diffuse chronic interstitial lung disease stable when compared with the prior examination. With this degree of chronic lung disease present a superimposed acute pneumonitis would be difficult to exclude and clinical correlation is recommended. Stable right apical pleuroparenchymal scarring. WE OBTAINED AND ECHO YESTERDAY. IT REVEALED AN EJECTION FRACTION OF 50%. TODAY, WE WILL START IV ZOSYN. OTHERWISE, WE WILL CONTINUE WITH CURRENT PLAN OF CARE. WE WILL FOLLOW UP WITH AM LABS AND CHEST XRAY AND CONTINUE TO MONITOR. - Past Medical Family Social History Past Med/Fam/Surg Hx: No changes since H&P Allergies: Allergies No Known Drug Allergies Allergy (Verified 04/09/18 16:19) - Review of Systems ROS: No change since H&P - Vital Signs and I&O's Vital Signs: Temperature 98.1 F Pulse Rate [Right Brachial] 91 Pulse Rate 78 Respiratory Rate 20 Blood Pressure [Right Arm] 145/64 Blood Pressure [Left Arm] 140/64 Blood Pressure 146/70 O2 Sat by Pulse Oximetry 87 Intake and Output: Intake & Output 01/08/19 01/09/19 01/10/19 01/11/19 11:59 11:59 11:59 11:59 Intake Total 1300 / 1300 1285 / 1285 1060 / 1060 1550 / 1550 Output Total 1800 / 1800 Balance 1300 / 1300 1285 / 1285 1060 / 1060 -250 / -250 - Physical Exam Oriented: Normal Eyes: Normal Ear: Normal Nose: Normal Throat: Normal Respiratory: Generalized, Wheezes Cardiovascular: Normal : Normal Auscultation: Bowel Sounds: Normal Palpation: Normal Tenderness: Normal Skin: Normal Musculoskeletal: Right, Left, Leg, Swelling, Tender Psychiatric: Normal Mood Description: Calm Affect: Normal Speech Pattern: Clear, Appropriate - Laboratory and Diagnostics Result Diagrams: 01/10/19 05:20 01/10/19 05:20 Labs: 01/07/19 12:10 Sputum - Expectorated Sputum Sputum Culture - Final Escherichia Coli 01/07/19 12:10 Sputum - Expectorated Sputum - Final Laboratory WBC 8.8 X10^3/uL (3.6-10.0) 01/10/19 05:20 RBC 3.22 X10^6/uL (4.7-6.0) L 01/10/19 05:20 Hgb 9.3 g/dL (13.5-18.0) L 01/10/19 05:20 Hct 27.3 % (42.0-54.0) L 01/10/19 05:20 MCV 84.7 fL (80.0-100.0) 01/10/19 05:20 MCH 28.9 pg (27.0-34.0) 01/10/19 05:20 MCHC 34.1 g/dL (33.0-35.0) 01/10/19 05:20 RDW 16.6 % (11.6-16.5) H 01/10/19 05:20 Plt Count 143 X10^3/uL (150.0-450.0) L 01/10/19 05:20 Plt Count Comment Adequate (ADEQUATE) 01/07/19 03:05 MPV 8.2 fL (7.4-11.0) 01/10/19 05:20 Neut % (Auto) 81.6 % (42.0-75.0) H 01/10/19 05:20 Lymph % (Auto) 6.5 % (21.0-51.0) L 01/10/19 05:20 Lamar % (Auto) 10.3 % (0.0-13.0) 01/10/19 05:20 Eos % (Auto) 1.0 % (0.9-2.9) 01/10/19 05:20 Baso % (Auto) 0.6 % (0.2-1.0) 01/10/19 05:20 Neut # (Auto) 7.2 x10^3/uL (2.2-4.8) H 01/10/19 05:20 Lymph # (Auto) 0.6 X10^3/uL (1.3-2.9) L 01/10/19 05:20 Lamar # (Auto) 0.9 x10^3/uL (0.3-0.8) H 01/10/19 05:20 Eos # (Auto) 0.1 x10^3/uL (0.0-0.2) 01/10/19 05:20 Baso # (Auto) 0.1 X10^3/uL (0.0-0.1) 01/10/19 05:20 Absolute Nucleated RBC 0.0 /100WBC 01/10/19 05:20 Total Counted 100 01/07/19 03:05 Neutrophils % (Manual) 82 % (39-76) H 01/07/19 03:05 Band Neutrophils % 1 % (0-10) 01/07/19 03:05 Lymphocytes % (Manual) 11 % (13-43) L 01/07/19 03:05 Monocytes % (Manual) 6 % (4-9) 01/07/19 03:05 Plt Morphology Comment Normal (NORMAL) 01/07/19 03:05 RBC Morphology Normal (NORMAL) 01/07/19 03:05 Sample Site Rr 01/10/19 09:50 ABG pH 7.450 (7.35-7.45) 01/10/19 09:50 ABG pCO2 50.0 mmHg (35.0-45.0) H 01/10/19 09:50 ABG pO2 64.0 mmHg (80.0-100.0) L 01/10/19 09:50 ABG HCO3 34.8 mmol/L (22-26) H* 01/10/19 09:50 ABG O2 Saturation 93.0 % (90-100) 01/10/19 09:50 ABG Base Excess 9.3 mmol/L (-2.0-2.0) H 01/10/19 09:50 Wilmar Test Pos 01/10/19 09:50 A-a Gradient 472.0 mmHg 01/10/19 09:50 FiO2 84.0 01/10/19 09:50 Blood Gas Comments Brittni abg well 01/10/19 09:50 Sodium 137 mmol/L (136-145) 01/10/19 05:20 Corrected Sodium 139 mmol/L (136-145) 01/10/19 05:20 Potassium 4.5 mmol/L (3.5-5.1) 01/10/19 05:20 Chloride 102 mmol/L (98-107) 01/10/19 05:20 Carbon Dioxide 30.5 mmol/L (21-32) 01/10/19 05:20 BUN 23 mg/dL (7-18) H 01/10/19 05:20 Creatinine 1.06 mg/dL (0.70-1.30) 01/10/19 05:20 Est GFR (MDRD) Af Amer > 60 (>60) 01/10/19 05:20 Est GFR (MDRD) Non-Af > 60 (>60) 01/10/19 05:20 Glucose 193 mg/dL (65-99) H 01/10/19 05:20 Calcium 8.7 mg/dL (8.5-10.1) 01/10/19 05:20 Corrected Calcium 9.9 mg/dL (8.5-10.1) 01/10/19 05:20 Magnesium 1.9 mg/dL (1.7-2.9) 01/08/19 04:03 Total Bilirubin 0.30 mg/dL (0.2-1.0) 01/10/19 05:20 AST 12 Units/L (15-37) L 01/10/19 05:20 ALT 9 Units/L (12-78) L 01/10/19 05:20 Alkaline Phosphatase 55 Units/L (46-116) 01/10/19 05:20 Creatine Kinase 20 Units/L (39-308) L 01/07/19 03:05 CK-MB (CK-2) 3.2 ng/mL (0-4.0) 01/07/19 03:05 CK/CKMB % Calc 16.0 % (<4) 01/07/19 03:05 Troponin I < 0.02 ng/mL (0-1.5) 01/07/19 03:05 Total Protein 5.7 g/dL (6.4-8.2) L 01/10/19 05:20 Albumin 2.5 g/dL (3.4-5.0) L 01/10/19 05:20 Globulin 3.2 g/dL (2.5-4.5) 01/10/19 05:20 Albumin/Globulin Ratio 0.8 Ratio (1.1-2.1) L 01/10/19 05:20 Digoxin < 0.20 ng/mL (0.9-2) L 01/07/19 03:05 - Plan (1) Bronchopneumonia Status: Acute Plan: IV ZOSYN, RESPIRATORY TX, SUPPLEMENTAL OXYGEN, CONTINUE TO MONITOR (2) Lower extremity edema Status: Acute Plan: IV LASIX, CONTINUE HOME MEDS, CONTINUE TO MONITOR (3) Shortness of breath Status: Acute (4) COPD (chronic obstructive pulmonary disease) Status: Chronic Qualifiers: COPD type: COPD with acute lower respiratory infection Qualified Code(s): J44.0 - Chronic obstructive pulmonary disease with acute lower respiratory infection (5) Pulmonary fibrosis Status: Chronic (6) Diabetes mellitus Status: Chronic Qualifiers: Diabetes mellitus type: type 2 Diabetes mellitus nursing home insulin use: with nursing home use Diabetes mellitus complication status: with hyperglycemia Qualified Code(s): E11.65 - Type 2 diabetes mellitus with hyperglycemia; Z79.4 - retirement (current) use of insulin
[2019-01-10] MEDS: SNACK - Diabetic Appropriate PO SCH (21:05)
--- NOTE | 2019-01-10 21:07 | PCM.PROG ---
Progress Note - Progress Note for Day of Date of Exam: 01/09/19 - Subjective Subjective: IS BEING TREATED FOR LOWER EXTREMITY SWELLING, BRONCHOPNEUMONIA, AND SHORTNESS OF BREATH. TODAY, HE IS ALERT AND ORIENTED, LYING IN BED ON MORNING ROUNDS. HE CONTINUES WITH TRACE EDEMA TO LOWER EXTREMITIES AND SHORTNESS OF BREATH. HE REPORTS INCREASED WEAKNESS TODAY AND REPORTS THAT HE IS UNABLE TO AMBULATE TO THE RESTROOM WITHOUT MODERATE ASSISTANCE. HIS VITALS THIS MORNING ARE: 97.6-71-22-98%-108/53. LABS WERE OBTAINED. ABNORMAL LAB VALUES INCLUDE THE FOLLOWING: WBC 13.8, RBC 3.75, HGB 10.4, HCT 32.0, SDIUM 134, CHLORIDE 95, CARBON DIOXIDE 32.6, BUN 32, CREATININE 2.41, GLUCOSE 191, AST 14, ALT 9, TOTAL PROTEIN 6.2, ALBUMIN 2.6. SPUTUM CULTURE IS PENDING. A CHEST XRAY WAS OBTAINED AND REVEALED: Diffuse severe chronic interstitial lung disease unchanged from the prior examination . TODAY, WE WILL HOLD LASIX AND CONTINUE WITH IV ZOSYN, RESPIRATORY TREATMENTS, AND SUPPLEMENTAL OXYGEN. WE WILL BOLUS WITH ONE LITER NORMAL SALINE AND THEN RUN MAINTENANCE FLUIDS AT 100ML/HR. OTHERWISE, WE WILL CONTINUE WITH CURRENT PLAN OF CARE. WE WILL FOLLOW UP WITH AM LABS AND CHEST XRAY AND CONTINUE TO MONITOR. - Past Medical Family Social History Past Med/Fam/Surg Hx: No changes since H&P Allergies: Allergies No Known Drug Allergies Allergy (Verified 04/09/18 16:19) - Review of Systems ROS: No change since H&P - Vital Signs and I&O's Vital Signs: Temperature 98.1 F Pulse Rate [Right Brachial] 91 Pulse Rate 78 Respiratory Rate 20 Blood Pressure [Right Arm] 145/64 Blood Pressure [Left Arm] 140/64 Blood Pressure 146/70 O2 Sat by Pulse Oximetry 87 Intake and Output: Intake & Output 01/08/19 01/09/19 01/10/19 01/11/19 11:59 11:59 11:59 11:59 Intake Total 1300 / 1300 1285 / 1285 1060 / 1060 1550 / 1550 Output Total 1800 / 1800 Balance 1300 / 1300 1285 / 1285 1060 / 1060 -250 / -250 - Physical Exam Oriented: Normal Eyes: Normal Ear: Normal Nose: Normal Throat: Normal Respiratory: Generalized, Wheezes Cardiovascular: Normal : Normal Auscultation: Bowel Sounds: Normal Palpation: Normal Tenderness: Normal Skin: Normal Musculoskeletal: Right, Left, Leg, Swelling, Tender Psychiatric: Normal Mood Description: Calm Affect: Normal Speech Pattern: Clear, Appropriate - Laboratory and Diagnostics Result Diagrams: 01/10/19 05:20 01/10/19 05:20 Labs: 01/07/19 12:10 Sputum - Expectorated Sputum Sputum Culture - Final Escherichia Coli 01/07/19 12:10 Sputum - Expectorated Sputum - Final Laboratory WBC 8.8 X10^3/uL (3.6-10.0) 01/10/19 05:20 RBC 3.22 X10^6/uL (4.7-6.0) L 01/10/19 05:20 Hgb 9.3 g/dL (13.5-18.0) L 01/10/19 05:20 Hct 27.3 % (42.0-54.0) L 01/10/19 05:20 MCV 84.7 fL (80.0-100.0) 01/10/19 05:20 MCH 28.9 pg (27.0-34.0) 01/10/19 05:20 MCHC 34.1 g/dL (33.0-35.0) 01/10/19 05:20 RDW 16.6 % (11.6-16.5) H 01/10/19 05:20 Plt Count 143 X10^3/uL (150.0-450.0) L 01/10/19 05:20 Plt Count Comment Adequate (ADEQUATE) 01/07/19 03:05 MPV 8.2 fL (7.4-11.0) 01/10/19 05:20 Neut % (Auto) 81.6 % (42.0-75.0) H 01/10/19 05:20 Lymph % (Auto) 6.5 % (21.0-51.0) L 01/10/19 05:20 Payne % (Auto) 10.3 % (0.0-13.0) 01/10/19 05:20 Eos % (Auto) 1.0 % (0.9-2.9) 01/10/19 05:20 Baso % (Auto) 0.6 % (0.2-1.0) 01/10/19 05:20 Neut # (Auto) 7.2 x10^3/uL (2.2-4.8) H 01/10/19 05:20 Lymph # (Auto) 0.6 X10^3/uL (1.3-2.9) L 01/10/19 05:20 Payne # (Auto) 0.9 x10^3/uL (0.3-0.8) H 01/10/19 05:20 Eos # (Auto) 0.1 x10^3/uL (0.0-0.2) 01/10/19 05:20 Baso # (Auto) 0.1 X10^3/uL (0.0-0.1) 01/10/19 05:20 Absolute Nucleated RBC 0.0 /100WBC 01/10/19 05:20 Total Counted 100 01/07/19 03:05 Neutrophils % (Manual) 82 % (39-76) H 01/07/19 03:05 Band Neutrophils % 1 % (0-10) 01/07/19 03:05 Lymphocytes % (Manual) 11 % (13-43) L 01/07/19 03:05 Monocytes % (Manual) 6 % (4-9) 01/07/19 03:05 Plt Morphology Comment Normal (NORMAL) 01/07/19 03:05 RBC Morphology Normal (NORMAL) 01/07/19 03:05 Sample Site Rr 01/10/19 09:50 ABG pH 7.450 (7.35-7.45) 01/10/19 09:50 ABG pCO2 50.0 mmHg (35.0-45.0) H 01/10/19 09:50 ABG pO2 64.0 mmHg (80.0-100.0) L 01/10/19 09:50 ABG HCO3 34.8 mmol/L (22-26) H* 01/10/19 09:50 ABG O2 Saturation 93.0 % (90-100) 01/10/19 09:50 ABG Base Excess 9.3 mmol/L (-2.0-2.0) H 01/10/19 09:50 Wilmar Test Pos 01/10/19 09:50 A-a Gradient 472.0 mmHg 01/10/19 09:50 FiO2 84.0 01/10/19 09:50 Blood Gas Comments Brittni abg well 01/10/19 09:50 Sodium 137 mmol/L (136-145) 01/10/19 05:20 Corrected Sodium 139 mmol/L (136-145) 01/10/19 05:20 Potassium 4.5 mmol/L (3.5-5.1) 01/10/19 05:20 Chloride 102 mmol/L (98-107) 01/10/19 05:20 Carbon Dioxide 30.5 mmol/L (21-32) 01/10/19 05:20 BUN 23 mg/dL (7-18) H 01/10/19 05:20 Creatinine 1.06 mg/dL (0.70-1.30) 01/10/19 05:20 Est GFR (MDRD) Af Amer > 60 (>60) 01/10/19 05:20 Est GFR (MDRD) Non-Af > 60 (>60) 01/10/19 05:20 Glucose 193 mg/dL (65-99) H 01/10/19 05:20 Calcium 8.7 mg/dL (8.5-10.1) 01/10/19 05:20 Corrected Calcium 9.9 mg/dL (8.5-10.1) 01/10/19 05:20 Magnesium 1.9 mg/dL (1.7-2.9) 01/08/19 04:03 Total Bilirubin 0.30 mg/dL (0.2-1.0) 01/10/19 05:20 AST 12 Units/L (15-37) L 01/10/19 05:20 ALT 9 Units/L (12-78) L 01/10/19 05:20 Alkaline Phosphatase 55 Units/L (46-116) 01/10/19 05:20 Creatine Kinase 20 Units/L (39-308) L 01/07/19 03:05 CK-MB (CK-2) 3.2 ng/mL (0-4.0) 01/07/19 03:05 CK/CKMB % Calc 16.0 % (<4) 01/07/19 03:05 Troponin I < 0.02 ng/mL (0-1.5) 01/07/19 03:05 Total Protein 5.7 g/dL (6.4-8.2) L 01/10/19 05:20 Albumin 2.5 g/dL (3.4-5.0) L 01/10/19 05:20 Globulin 3.2 g/dL (2.5-4.5) 01/10/19 05:20 Albumin/Globulin Ratio 0.8 Ratio (1.1-2.1) L 01/10/19 05:20 Digoxin < 0.20 ng/mL (0.9-2) L 01/07/19 03:05 - Plan (1) Bronchopneumonia Status: Acute Plan: IV ZOSYN, RESPIRATORY TX, SUPPLEMENTAL OXYGEN, CONTINUE TO MONITOR (2) Lower extremity edema Status: Acute Plan: CONTINUE HOME MEDS, CONTINUE TO MONITOR (3) Shortness of breath Status: Acute (4) COPD (chronic obstructive pulmonary disease) Status: Chronic Qualifiers: COPD type: COPD with acute lower respiratory infection Qualified Code(s): J44.0 - Chronic obstructive pulmonary disease with acute lower respiratory infection (5) Pulmonary fibrosis Status: Chronic (6) Diabetes mellitus Status: Chronic Qualifiers: Diabetes mellitus type: type 2 Diabetes mellitus long term acute care registered nurse insulin use: w ith long term acute care registered nurse use Diabetes mellitus complication status: with hyperglycemia Qualified Code(s): E11.65 - Type 2 diabetes mellitus with hyperglycemia; 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
[2019-01-11 02:17] LABS: ABG BASE EXCESS 9.5 mmol/L (-2.0-2.0)
[2019-01-11 02:18] LABS: ABG ALLEN TEST POS; ABG HCO3 34.8 mmol/L (22-26)
[2019-01-11] MEDS: XOPENEX 1.25 MG/3 ML NEBULE NEB SCH ×3 (04:50→20:27)
--- NOTE | 2019-01-11 05:13 | RAD ---
Chest radiograph, AP views. History: Shortness of breath. Comparison: 01/10/2019. Findings: There is stable cardiomegaly with extensive bilateral interstitial disease, likely reflecting chronic fibrosis. No evidence of pneumothorax or other change in cardiopulmonary findings from prior study. Conclusion: Stable examination with advanced interstitial lung disease, likely chronic. Acute superimposed infiltrate remains difficult to exclude. Reported By:
[2019-01-11] MEDS: FORTAZ or TAZICEF VIAL INJ IVP SCH ×3 (05:36→21:17)
[2019-01-11] MEDS: NEURONTIN CAP 400 MG PO SCH ×3 (05:37→21:30)
[2019-01-11] MEDS: SOLU-Medrol 40 MG VIAL IVP SCH ×3 (05:37→21:17)
[2019-01-11] MEDS: HumuLIN R SUBCUT PRN ×4 (05:38→21:11)
[2019-01-11 06:15] LABS: ALANINE AMINOTRANSFERASE 10 Units/L (12-78); ALBUMIN 3.1 g/dL (3.4-5.0); ALKALINE PHOSPHATASE 65 Units/L (46-116); ASPARTATE AMINO TRANSFERASE 17 Units/L (15-37); BLOOD UREA NITROGEN 14 mg/dL (7-18); CALCIUM 9.6 mg/dL (8.5-10.1); CARBON DIOXIDE 29.9 mmol/L (21-32); CHLORIDE 102 mmol/L (98-107); COR CA(FOR HYPOALB) 10.3 mg/dL (8.5-10.1); COR NA(FOR HYPERGLY) 143 mmol/L (136-145); CREATININE 0.81 mg/dL (0.70-1.30); SODIUM 140 mmol/L (136-145); TOTAL PROTEIN 7.3 g/dL (6.4-8.2); eGFR NON BLACK RACES > 60 (>60)
[2019-01-11 06:44] LABS: BASOPHILS # (AUTO) 0.1 X10^3/uL (0.0-0.1); BASOPHILS % (AUTO) 1.3 % (0.2-1.0); EOSINOPHILS % (AUTO) 0.1 % (0.9-2.9); HEMATOCRIT 31.1 % (42.0-54.0); HEMOGLOBIN 10.2 g/dL (13.5-18.0); LYMPHOCYTES # (AUTO) 0.4 X10^3/uL (1.3-2.9); LYMPHOCYTES % (AUTO) 3.7 % (21.0-51.0); MEAN CORPUSCULAR HEMOGLOBIN 27.9 pg (27.0-34.0); MEAN CORPUSCULAR HGB CONC 32.8 g/dL (33.0-35.0); MEAN CORPUSCULAR VOLUME 84.9 fL (80.0-100.0); MEAN PLATELET VOLUME 7.8 fL (7.4-11.0); MONOCYTES # (AUTO) 0.7 x10^3/uL (0.3-0.8); MONOCYTES % (AUTO) 6.9 % (0.0-13.0); NEUTROPHILS # (AUTO) 8.5 x10^3/uL (2.2-4.8); PLATELET COUNT 160 X10^3/uL (150.0-450.0); RED BLOOD COUNT 3.66 X10^6/uL (4.7-6.0); RED CELL DISTRIBUTION WIDTH 16.8 % (11.6-16.5); WHITE BLOOD COUNT 9.6 X10^3/uL (3.6-10.0)
[2019-01-11 07:09] LABS: BAND NEUTROPHILS % 2 % (0-10); BASOPHILS % (MANUAL) 1 % (0-1); PLATELET MORPHOLOGY COMMENT NORMAL (NORMAL)
[2019-01-11 10:08] LABS: ABG BASE EXCESS 8.6 mmol/L (-2.0-2.0)
[2019-01-11 10:09] LABS: ABG ALLEN TEST POS; ABG HCO3 34.5 mmol/L (22-26)
[2019-01-11] MEDS: PULMICORT NEB TX 0.5 MG NEB SCH ×2 (10:21→20:27)
[2019-01-11] MEDS: VITAMIN B-12 PO SCH (11:05)
[2019-01-11] MEDS: AZULFIDINE PO SCH ×2 (11:05→21:22)
[2019-01-11] MEDS: VITAMIN D3 PO SCH ×2 (11:06→23:32)
[2019-01-11] MEDS: PROTONIX TAB 40 MG PO SCH (11:06)
[2019-01-11] MEDS: ACTOS PO SCH (11:06)
[2019-01-11] MEDS: LANOXIN PO SCH (11:06)
[2019-01-11] MEDS: ASPIRIN EC 81 MG PO SCH (11:06)
[2019-01-11] MEDS: ALBUMIN HUMAN 25%- 100 ML 100 ML IV SCH (11:07)
[2019-01-11] MEDS: COZAAR PO SCH (11:07)
[2019-01-11] MEDS: OSCAL+D or CALTRATE+D PO SCH (11:07)
[2019-01-11] MEDS: SENOKOT PO SCH ×2 (11:08→21:27)
[2019-01-11] MEDS: LOVENOX INJ 40 MG SYR SC SCH (11:08)
[2019-01-11] MEDS: FLONASE NASAL SPRAY ENOSTRIL SCH (11:08)
[2019-01-11] MEDS: LOPRESSOR TAB 50 MG PO SCH ×2 (12:24→21:27)
[2019-01-11] MEDS: NS 1000 ML 1,000 ML IV SCH ×2 (13:50→22:52)
--- NOTE | 2019-01-11 15:09 | PCM.PROG ---
Progress Note - Progress Note for Day of Date of Exam: 01/10/19 - Subjective Subjective: IS BEING TREATED FOR LOWER EXTREMITY SWELLING, BRONCHOPNEUMONIA, AND SHORTNESS OF BREATH. TODAY, HE IS ALERT AND ORIENTED, LYING IN BED ON MORNING ROUNDS. HE CONTINUES WITH TRACE EDEMA TO LOWER EXTREMITIES AND SHORTNESS OF BREATH. FAMILY REPORTS THAT HE NEARLY FELL THIS MORNING WHILE AMBULATING TO THE RESTROOM. HE BECAME SHORT OF BREATH, DIAPHORETIC, AND OXYGEN SATURATIONS DECREASED TO THE 50s, PER DAUGHTER. HIS VITALS THIS MORNING ARE: 98.1-83-20-94%HHF-99/69. LABS WERE OBTAINED. ABNORMAL LAB VALUES INCLUDE THE FOLLOWING: RBC 3.22, HGB 9.3, HCT 27.3, PLT COUNT 143, BUN 23, GLUCOSE 193, AST 12, ALT 9, TOTAL PROTEIN 5.7, ALBUMIN 2.5. SPUTUM CULTURE REVEALED GROWTH OF E.COLI. IT IS NOT SENSITIVE TO THE ZOSYN THAT HE IS CURRENTLY RECEIVING. A CHEST XRAY WAS OBTAINED AND REVEALED: No change. Continued advanced interstitial lung disease likely chronic. Because of the severely of this process, an acute superimposed infiltrate would be difficult to identify. TODAY, WE WILL DISCONTINUE ZOSYN AND START FORTAZ AND SOLU-MEDROL 80MG IV Q8H. OTHERWISE, WE WILL CONTINUE WITH RESPIRATORY TREATMENTS AND SUPPLEMENTAL OXYGEN. WE WILL FOLLOW UP WITH AM LABS AND CHEST XRAY AND CONTINUE TO MONITOR. - Past Medical Family Social History Past Med/Fam/Surg Hx: No changes since H&P Allergies: Allergies No Known Drug Allergies Allergy (Verified 04/09/18 16:19) - Review of Systems ROS: No change since H&P - Vital Signs and I&O's Vital Signs: Temperature 97.8 F Pulse Rate [Right Brachial] 79 Pulse Rate 68 Respiratory Rate 30 Blood Pressure [Right Arm] 151/68 Blood Pressure [Left Arm] 140/64 Blood Pressure 146/70 O2 Sat by Pulse Oximetry 90 Intake and Output: Intake & Output 01/09/19 01/10/19 01/11/19 01/12/19 11:59 11:59 11:59 11:59 Intake Total 1285 / 1285 1060 / 1060 3470 / 3470 Output Total 3800 / 3800 Balance 1285 / 1285 1060 / 1060 -330 / -330 - Physical Exam Oriented: Normal Eyes: Normal Ear: Normal Nose: Normal Throat: Normal Respiratory: Generalized, Wheezes Cardiovascular: Normal : Normal Auscultation: Bowel Sounds: Normal Tenderness: Normal Skin: Normal Musculoskeletal: Right, Left, Leg, Swelling, Tender Psychiatric: Normal Mood Description: Calm Affect: Normal Speech Pattern: Clear, Appropriate - Laboratory and Diagnostics Result Diagrams: 01/11/19 06:35 01/11/19 05:40 Labs: 01/07/19 12:10 Sputum - Expectorated Sputum Sputum Culture - Final Escherichia Coli 01/07/19 12:10 Sputum - Expectorated Sputum - Final Laboratory WBC 9.6 X10^3/uL (3.6-10.0) 01/11/19 06:35 RBC 3.66 X10^6/uL (4.7-6.0) L 01/11/19 06:35 Hgb 10.2 g/dL (13.5-18.0) L 01/11/19 06:35 Hct 31.1 % (42.0-54.0) L 01/11/19 06:35 MCV 84.9 fL (80.0-100.0) 01/11/19 06:35 MCH 27.9 pg (27.0-34.0) 01/11/19 06:35 MCHC 32.8 g/dL (33.0-35.0) L 01/11/19 06:35 RDW 16.8 % (11.6-16.5) H 01/11/19 06:35 Plt Count 160 X10^3/uL (150.0-450.0) 01/11/19 06:35 Plt Count Comment Adequate (ADEQUATE) 01/11/19 06:35 MPV 7.8 fL (7.4-11.0) 01/11/19 06:35 Neut % (Auto) 88.0 % (42.0-75.0) H 01/11/19 06:35 Lymph % (Auto) 3.7 % (21.0-51.0) L 01/11/19 06:35 Mower % (Auto) 6.9 % (0.0-13.0) 01/11/19 06:35 Eos % (Auto) 0.1 % (0.9-2.9) L 01/11/19 06:35 Baso % (Auto) 1.3 % (0.2-1.0) H 01/11/19 06:35 Neut # (Auto) 8.5 x10^3/uL (2.2-4.8) H 01/11/19 06:35 Lymph # (Auto) 0.4 X10^3/uL (1.3-2.9) L 01/11/19 06:35 Mower # (Auto) 0.7 x10^3/uL (0.3-0.8) 01/11/19 06:35 Eos # (Auto) 0.0 x10^3/uL (0.0-0.2) 01/11/19 06:35 Baso # (Auto) 0.1 X10^3/uL (0.0-0.1) 01/11/19 06:35 Absolute Nucleated RBC 0.0 /100WBC 01/11/19 06:35 Total Counted 100 01/11/19 06:35 Neutrophils % (Manual) 90 % (39-76) H 01/11/19 06:35 Band Neutrophils % 2 % (0-10) 01/11/19 06:35 Lymphocytes % (Manual) 4 % (13-43) L 01/11/19 06:35 Monocytes % (Manual) 3 % (4-9) L 01/11/19 06:35 Basophils % (Manual) 1 % (0-1) 01/11/19 06:35 Plt Morphology Comment Normal (NORMAL) 01/11/19 06:35 RBC Morphology Normal (NORMAL) 01/11/19 06:35 Sample Site Left radial 01/11/19 09:57 ABG pH 7.430 (7.35-7.45) 01/11/19 09:57 ABG pCO2 52.0 mmHg (35.0-45.0) H* 01/11/19 09:57 ABG pO2 74.0 mmHg (80.0-100.0) L 01/11/19 09:57 ABG HCO3 34.5 mmol/L (22-26) H* 01/11/19 09:57 ABG O2 Saturation 95.0 % (90-100) 01/11/19 09:57 ABG Base Excess 8.6 mmol/L (-2.0-2.0) H 01/11/19 09:57 Wilmar Test Pos 01/11/19 09:57 A-a Gradient 253.0 mmHg 01/11/19 09:57 FiO2 55.0 01/11/19 09:57 Blood Gas Comments Brittni well aw 01/11/19 09:57 Sodium 140 mmol/L (136-145) 01/11/19 05:40 Corrected Sodium 143 mmol/L (136-145) 01/11/19 05:40 Potassium 5.6 mmol/L (3.5-5.1) H 01/11/19 05:40 Chloride 102 mmol/L (98-107) 01/11/19 05:40 Carbon Dioxide 29.9 mmol/L (21-32) 01/11/19 05:40 BUN 14 mg/dL (7-18) 01/11/19 05:40 Creatinine 0.81 mg/dL (0.70-1.30) 01/11/19 05:40 Est GFR (MDRD) Af Amer > 60 (>60) 01/11/19 05:40 Est GFR (MDRD) Non-Af > 60 (>60) 01/11/19 05:40 Glucose 219 mg/dL (65-99) H 01/11/19 05:40 Calcium 9.6 mg/dL (8.5-10.1) 01/11/19 05:40 Corrected Calcium 10.3 mg/dL (8.5-10.1) H 01/11/19 05:40 Magnesium 1.9 mg/dL (1.7-2.9) 01/08/19 04:03 Total Bilirubin 0.30 mg/dL (0.2-1.0) 01/11/19 05:40 AST 17 Units/L (15-37) 01/11/19 05:40 ALT 10 Units/L (12-78) L 01/11/19 05:40 Alkaline Phosphatase 65 Units/L (46-116) 01/11/19 05:40 Creatine Kinase 20 Units/L (39-308) L 01/07/19 03:05 CK-MB (CK-2) 3.2 ng/mL (0-4.0) 01/07/19 03:05 CK/CKMB % Calc 16.0 % (<4) 01/07/19 03:05 Troponin I < 0.02 ng/mL (0-1.5) 01/07/19 03:05 Total Protein 7.3 g/dL (6.4-8.2) 01/11/19 05:40 Albumin 3.1 g/dL (3.4-5.0) L 01/11/19 05:40 Globulin 4.2 g/dL (2.5-4.5) 01/11/19 05:40 Albumin/Globulin Ratio 0.7 Ratio (1.1-2.1) L 01/11/19 05:40 Digoxin < 0.20 ng/mL (0.9-2) L 01/07/19 03:05 - Plan (1) Bronchopneumonia Status: Acute Plan: IV FORTAZ, SOLU-MEDROL 80MG IV Q8H, RESPIRATORY TX, SUPPLEMENTAL OXYGEN, CONTINUE TO MONITOR (2) Lower extremity edema Status: Acute Plan: CONTINUE HOME MEDS, CONTINUE TO MONITOR (3) Shortness of breath Status: Acute (4) COPD (chronic obstructive pulmonary disease) Status: Chronic Qualifiers: COPD type: COPD with acute lower respiratory infection Qualified Code(s): J44.0 - Chronic obstructive pulmonary disease with acute lower respiratory infection (5) Pulmonary fibrosis Status: Chronic (6) Diabetes mellitus Status: Chronic Qualifiers: Diabetes mellitus type: type 2 Diabetes mellitus nursing home insulin use: with nursing home use Diabetes mellitus complication status: with hyperglycemia Qualified Code(s): E11.65 - Type 2 diabetes mellitus with hyperglycemia; Z79.4 - senior care (current) use of insulin
[2019-01-11] MEDS: LANTUS SC SCH (21:08)
[2019-01-11] MEDS: DESYREL PO SCH (21:21)
[2019-01-11] MEDS: LIPITOR TAB 40 MG PO SCH (21:21)
[2019-01-11] MEDS: SNACK - Diabetic Appropriate PO SCH (21:26)
[2019-01-12] MEDS: NS 1000 ML 1,000 ML IV SCH ×6 (00:10→18:23)
[2019-01-12] MEDS: HumuLIN R SUBCUT PRN ×4 (05:33→21:44)
[2019-01-12] MEDS: SOLU-Medrol 40 MG VIAL IVP SCH ×3 (05:39→21:47)
[2019-01-12 05:43] LABS: BASOPHILS # (AUTO) 0.1 X10^3/uL (0.0-0.1); BASOPHILS % (AUTO) 0.9 % (0.2-1.0); HEMATOCRIT 29.8 % (42.0-54.0); HEMOGLOBIN 9.8 g/dL (13.5-18.0); LYMPHOCYTES # (AUTO) 0.5 X10^3/uL (1.3-2.9); MEAN CORPUSCULAR HEMOGLOBIN 28.1 pg (27.0-34.0); MEAN CORPUSCULAR HGB CONC 32.9 g/dL (33.0-35.0); MEAN CORPUSCULAR VOLUME 85.4 fL (80.0-100.0); MEAN PLATELET VOLUME 8.5 fL (7.4-11.0); NEUTROPHILS % (AUTO) 86.1 % (42.0-75.0); PLATELET COUNT 144 X10^3/uL (150.0-450.0); RED BLOOD COUNT 3.48 X10^6/uL (4.7-6.0); WHITE BLOOD COUNT 11.6 X10^3/uL (3.6-10.0)
[2019-01-12] MEDS: FORTAZ or TAZICEF VIAL INJ IVP SCH ×3 (05:43→21:47)
[2019-01-12] MEDS: NEURONTIN CAP 400 MG PO SCH ×3 (05:45→21:38)
[2019-01-12 06:05] LABS: ALANINE AMINOTRANSFERASE 10 Units/L (12-78); ALKALINE PHOSPHATASE 60 Units/L (46-116); ASPARTATE AMINO TRANSFERASE 17 Units/L (15-37); BLOOD UREA NITROGEN 16 mg/dL (7-18); CALCIUM 9.3 mg/dL (8.5-10.1); CARBON DIOXIDE 30.9 mmol/L (21-32); CHLORIDE 101 mmol/L (98-107); COR CA(FOR HYPOALB) 10.1 mg/dL (8.5-10.1); COR NA(FOR HYPERGLY) 141 mmol/L (136-145); CREATININE 0.78 mg/dL (0.70-1.30); SODIUM 138 mmol/L (136-145); TOTAL PROTEIN 6.6 g/dL (6.4-8.2); eGFR NON BLACK RACES > 60 (>60)
[2019-01-12 06:18] LABS: HYPOCHROMASIA SLIGHT; PLATELET MORPHOLOGY COMMENT NORMAL (NORMAL)
[2019-01-12] MEDS: XOPENEX 1.25 MG/3 ML NEBULE NEB SCH ×3 (06:45→21:20)
[2019-01-12 06:57] LABS: ABG BASE EXCESS 9.8 mmol/L (-2.0-2.0)
[2019-01-12 06:58] LABS: ABG ALLEN TEST POS; ABG HCO3 34.9 mmol/L (22-26); FRACTIONATED INSPIRED OXYGEN 55
--- NOTE | 2019-01-12 07:38 | RAD ---
HISTORY: Shortness of breath Study: Single view chest Comparison: 01/11/2019, CT 05/01/2017 Findings: Chronic fibrotic changes and interstitial thickening are seen throughout the lungs. There is chronic right apical pleural thickening. Cardiac silhouette appears mildly enlarged. Surgical clips are again noted in the thorax. IMPRESSION: 1. Stable chronic interstitial fibrotic changes throughout the lungs. Reported By:
[2019-01-12] MEDS: ALBUMIN HUMAN 25%- 100 ML 100 ML IV SCH (08:54)
[2019-01-12] MEDS: LOPRESSOR TAB 50 MG PO SCH ×2 (08:55→21:35)
[2019-01-12] MEDS: OSCAL+D or CALTRATE+D PO SCH (08:55)
[2019-01-12] MEDS: ASPIRIN EC 81 MG PO SCH (08:55)
[2019-01-12] MEDS: ACTOS PO SCH (08:56)
[2019-01-12] MEDS: VITAMIN D3 PO SCH ×2 (08:56→21:37)
[2019-01-12] MEDS: COZAAR PO SCH (08:56)
[2019-01-12] MEDS: PROTONIX TAB 40 MG PO SCH (08:56)
[2019-01-12] MEDS: FLONASE NASAL SPRAY ENOSTRIL SCH (08:57)
[2019-01-12] MEDS: LOVENOX INJ 40 MG SYR SC SCH (08:57)
[2019-01-12] MEDS: SENOKOT PO SCH ×3 (08:57→21:36)
[2019-01-12] MEDS: PULMICORT NEB TX 0.5 MG NEB SCH ×2 (08:58→21:20)
[2019-01-12] MEDS: LANOXIN PO SCH (08:58)
[2019-01-12] MEDS: AZULFIDINE PO SCH ×2 (09:00→21:33)
[2019-01-12] MEDS: THEO-DUR TAB 200 MG PO SCH ×2 (11:24→21:34)
[2019-01-12] MEDS: VITAMIN B-12 PO SCH (11:24)
--- NOTE | 2019-01-12 20:22 | PCM.PROG ---
Progress Note - Progress Note for Day of Date of Exam: 01/11/19 - Subjective Subjective: IS BEING TREATED FOR LOWER EXTREMITY SWELLING, BRONCHOPNEUMONIA, AND SHORTNESS OF BREATH. TODAY, HE IS ALERT AND ORIENTED, LYING IN BED ON MORNING ROUNDS. HE CONTINUES WITH TRACE EDEMA TO LOWER EXTREMITIES AND SHORTNESS OF BREATH. FAMILY REPORTS THAT OXYGEN SATURATIONS CONTINUE TO DROP AT TIMES. HE CONTINUES TO UTILIZE THE BIPAP. HIS VITALS THIS MORNING ARE: 97.6-71-23-96%-158/70. LABS WERE OBTAINED. ABNORMAL LAB VALUES INCLUDE THE FOLLOWING: RBC 3.66, HGB 10.2, HCT 31.1, POTASSIUM 5.6, GLCUOSE 219, ALT 10, ALBUMIN 3.1. SPUTUM CULTURE REVEALED GROWTH OF E.COLI. A CHEST XRAY WAS OBTAINED AND REVEALED: Stable examination with advanced interstitial lung disease, likely chronic. Acute superimposed infiltrate remains difficult to exclude. SHE IS CURRENTLY RECEIVING IV FORTAZ, SOLU-MEDROL 80MG IV Q8H, ALBUMIN 25% IV DAILY, RESPIRATORY TREATMENTS, SUPPLEMENTAL OXYGEN, AND HOME MEDS WERE RESUMED. WE WILL CONTINUE WITH CURRENT PLAN OF CARE TODAY AND REPEAT AN ABG IN AN HOUR. OTHERWISE, WE WILL FOLLOW UP WITH AM LABS AND CHEST XRAY AND CONTINUE TO MONITOR. - Past Medical Family Social History Past Med/Fam/Surg Hx: No changes since H&P Allergies: Allergies No Known Drug Allergies Allergy (Verified 04/09/18 16:19) - Review of Systems ROS: No change since H&P - Vital Signs and I&O's Vital Signs: Temperature 98.2 F Pulse Rate [Right Brachial] 79 Pulse Rate 73 Respiratory Rate 33 Blood Pressure [Right Arm] 176/74 Blood Pressure [Left Arm] 140/64 Blood Pressure 146/70 O2 Sat by Pulse Oximetry 88 Intake and Output: Intake & Output 01/10/19 01/11/19 01/12/19 01/13/19 11:59 11:59 11:59 11:59 Intake Total 1060 / 1060 3470 / 3470 2900 / 2900 1240 / 1240 Output Total 3800 / 3800 1850 / 1850 1250 / 1250 Balance 1060 / 1060 -330 / -330 1050 / 1050 -10 / -10 - Physical Exam Oriented: Normal Eyes: Normal Ear: Normal Nose: Normal Throat: Normal Respiratory: Generalized, Wheezes Cardiovascular: Normal : Normal Auscultation: Bowel Sounds: Normal Palpation: Normal Tenderness: Normal Skin: Normal Musculoskeletal: Right, Left, Leg, Swelling, Tender Psychiatric: Normal Mood Description: Calm Affect: Normal Speech Pattern: Clear, Appropriate - Laboratory and Diagnostics Result Diagrams: 01/12/19 05:04 01/12/19 05:04 Labs: 01/07/19 12:10 Sputum - Expectorated Sputum Sputum Culture - Final Escherichia Coli 01/07/19 12:10 Sputum - Expectorated Sputum - Final Laboratory WBC 11.6 X10^3/uL (3.6-10.0) H 01/12/19 05:04 RBC 3.48 X10^6/uL (4.7-6.0) L 01/12/19 05:04 Hgb 9.8 g/dL (13.5-18.0) L 01/12/19 05:04 Hct 29.8 % (42.0-54.0) L 01/12/19 05:04 MCV 85.4 fL (80.0-100.0) 01/12/19 05:04 MCH 28.1 pg (27.0-34.0) 01/12/19 05:04 MCHC 32.9 g/dL (33.0-35.0) L 01/12/19 05:04 RDW 16.0 % (11.6-16.5) 01/12/19 05:04 Plt Count 144 X10^3/uL (150.0-450.0) L 01/12/19 05:04 Plt Count Comment Decreased (ADEQUATE) 01/12/19 05:04 MPV 8.5 fL (7.4-11.0) 01/12/19 05:04 Neut % (Auto) 86.1 % (42.0-75.0) H 01/12/19 05:04 Lymph % (Auto) 4.0 % (21.0-51.0) L 01/12/19 05:04 [place] % (Auto) 9.0 % (0.0-13.0) 01/12/19 05:04 Eos % (Auto) 0.0 % (0.9-2.9) L 01/12/19 05:04 Baso % (Auto) 0.9 % (0.2-1.0) 01/12/19 05:04 Neut # (Auto) 10.0 x10^3/uL (2.2-4.8) H 01/12/19 05:04 Lymph # (Auto) 0.5 X10^3/uL (1.3-2.9) L 01/12/19 05:04 [place] # (Auto) 1.0 x10^3/uL (0.3-0.8) H 01/12/19 05:04 Eos # (Auto) 0.0 x10^3/uL (0.0-0.2) 01/12/19 05:04 Baso # (Auto) 0.1 X10^3/uL (0.0-0.1) 01/12/19 05:04 Absolute Nucleated RBC 0.0 /100WBC 01/12/19 05:04 Total Counted 100 01/12/19 05:04 Neutrophils % (Manual) 86 % (39-76) H 01/12/19 05:04 Band Neutrophils % 2 % (0-10) 01/11/19 06:35 Lymphocytes % (Manual) 14 % (13-43) 01/12/19 05:04 Monocytes % (Manual) 3 % (4-9) L 01/11/19 06:35 Basophils % (Manual) 1 % (0-1) 01/11/19 06:35 Plt Morphology Comment Normal (NORMAL) 01/12/19 05:04 RBC Morphology Abnormal (NORMAL) 01/12/19 05:04 Hypochromasia Slight A 01/12/19 05:04 Sample Site Rrad 01/12/19 06:35 ABG pH 7.470 (7.35-7.45) H 01/12/19 06:35 ABG pCO2 48.0 mmHg (35.0-45.0) H 01/12/19 06:35 ABG pO2 80.0 mmHg (80.0-100.0) 01/12/19 06:35 ABG HCO3 34.9 mmol/L (22-26) H* 01/12/19 06:35 ABG O2 Saturation 96.0 % (90-100) 01/12/19 06:35 ABG Base Excess 9.8 mmol/L (-2.0-2.0) H 01/12/19 06:35 Wilmar Test Pos 01/12/19 06:35 A-a Gradient Not Reportable 01/12/19 06:35 FiO2 55 01/12/19 06:35 Blood Gas Comments Brittni abg well-mtf 01/12/19 06:35 Sodium 138 mmol/L (136-145) 01/12/19 05:04 Corrected Sodium 141 mmol/L (136-145) 01/12/19 05:04 Potassium 4.9 mmol/L (3.5-5.1) 01/12/19 05:04 Chloride 101 mmol/L (98-107) 01/12/19 05:04 Carbon Dioxide 30.9 mmol/L (21-32) 01/12/19 05:04 BUN 16 mg/dL (7-18) 01/12/19 05:04 Creatinine 0.78 mg/dL (0.70-1.30) 01/12/19 05:04 Est GFR (MDRD) Af Amer > 60 (>60) 01/12/19 05:04 Est GFR (MDRD) Non-Af > 60 (>60) 01/12/19 05:04 Glucose 219 mg/dL (65-99) H 01/12/19 05:04 Calcium 9.3 mg/dL (8.5-10.1) 01/12/19 05:04 Corrected Calcium 10.1 mg/dL (8.5-10.1) 01/12/19 05:04 Magnesium 1.9 mg/dL (1.7-2.9) 01/08/19 04:03 Total Bilirubin 0.20 mg/dL (0.2-1.0) 01/12/19 05:04 AST 17 Units/L (15-37) 01/12/19 05:04 ALT 10 Units/L (12-78) L 01/12/19 05:04 Alkaline Phosphatase 60 Units/L (46-116) 01/12/19 05:04 Creatine Kinase 20 Units/L (39-308) L 01/07/19 03:05 CK-MB (CK-2) 3.2 ng/mL (0-4.0) 01/07/19 03:05 CK/CKMB % Calc 16.0 % (<4) 01/07/19 03:05 Troponin I < 0.02 ng/mL (0-1.5) 01/07/19 03:05 Total Protein 6.6 g/dL (6.4-8.2) 01/12/19 05:04 Albumin 3.0 g/dL (3.4-5.0) L 01/12/19 05:04 Globulin 3.6 g/dL (2.5-4.5) 01/12/19 05:04 Albumin/Globulin Ratio 0.8 Ratio (1.1-2.1) L 01/12/19 05:04 Digoxin < 0.20 ng/mL (0.9-2) L 01/07/19 03:05 - Plan (1) Bronchopneumonia Status: Acute Plan: BIPAP, IV FORTAZ, SOLU-MEDROL 80MG IV Q8H, RESPIRATORY TX, SUPPLEMENTAL OXYGEN, CONTINUE TO MONITOR (2) Lower extremity edema Status: Acute Plan: CONTINUE HOME MEDS, CONTINUE TO MONITOR (3) Shortness of breath Status: Acute (4) COPD (chronic obstructive pulmonary disease) Status: Chronic Qualifiers: COPD type: COPD with acute lower respiratory infection Qualified Code(s): J44.0 - Chronic obstructive pulmonary disease with acute lower respiratory infection (5) Pulmonary fibrosis Status: Chronic (6) Diabetes mellitus Status: Chronic Qualifiers: Diabetes mellitus type: type 2 Diabetes mellitus group home insulin use: with ad terminal makeup operator use Diabetes mellitus complication status: with hyperglycemia Qualified Code(s): E11.65 - Type 2 diabetes mellitus with hyperglycemia; Z79.4 - rn long term care (current) use of insulin
[2019-01-12] MEDS: SNACK - Diabetic Appropriate PO SCH (21:33)
[2019-01-12] MEDS: LIPITOR TAB 40 MG PO SCH (21:34)
[2019-01-12] MEDS: DESYREL PO SCH (21:35)
[2019-01-12] MEDS: LANTUS SC SCH (21:44)
--- NOTE | 2019-01-13 06:11 | RAD ---
HISTORY: Shortness of breath Study: Chest AP portable Comparison: 01/12/2019 and multiple priors Findings: The heart is enlarged. No congestive heart failure is noted. Diffuse severe bilateral chronic fibrotic interstitial lung changes are present unchanged. Right apical pleural thickening is unchanged. No pleural effusions are identified. The bony thorax is unremarkable. IMPRESSION: No significant change from the prior examination Reported By:
[2019-01-13 06:13] LABS: ABG BASE EXCESS 12.6 mmol/L (-2.0-2.0)
[2019-01-13 06:16] LABS: ABG ALLEN TEST POS
[2019-01-13] MEDS: NS 1000 ML 1,000 ML IV SCH ×3 (06:16→19:16)
[2019-01-13] MEDS: FORTAZ or TAZICEF VIAL INJ IVP SCH ×3 (06:16→21:08)
[2019-01-13] MEDS: NEURONTIN CAP 400 MG PO SCH ×3 (06:16→21:05)
[2019-01-13] MEDS: SOLU-Medrol 40 MG VIAL IVP SCH (06:17)
[2019-01-13] MEDS: HumuLIN R SUBCUT PRN ×4 (06:18→21:15)
[2019-01-13] MEDS: XOPENEX 1.25 MG/3 ML NEBULE NEB SCH ×3 (06:36→20:14)
[2019-01-13 06:51] LABS: BASOPHILS % (AUTO) 0.4 % (0.2-1.0); HEMATOCRIT 30.2 % (42.0-54.0); HEMOGLOBIN 10.1 g/dL (13.5-18.0); LYMPHOCYTES # (AUTO) 0.6 X10^3/uL (1.3-2.9); LYMPHOCYTES % (AUTO) 6.5 % (21.0-51.0); MEAN CORPUSCULAR HEMOGLOBIN 28.1 pg (27.0-34.0); MEAN CORPUSCULAR HGB CONC 33.3 g/dL (33.0-35.0); MEAN CORPUSCULAR VOLUME 84.3 fL (80.0-100.0); MONOCYTES % (AUTO) 10.9 % (0.0-13.0); NEUTROPHILS # (AUTO) 7.8 x10^3/uL (2.2-4.8); NEUTROPHILS % (AUTO) 82.2 % (42.0-75.0); PLATELET COUNT 163 X10^3/uL (150.0-450.0); RED BLOOD COUNT 3.58 X10^6/uL (4.7-6.0); RED CELL DISTRIBUTION WIDTH 16.8 % (11.6-16.5); WHITE BLOOD COUNT 9.5 X10^3/uL (3.6-10.0)
[2019-01-13 07:06] LABS: ALANINE AMINOTRANSFERASE 12 Units/L (12-78); ALKALINE PHOSPHATASE 62 Units/L (46-116); ASPARTATE AMINO TRANSFERASE 17 Units/L (15-37); BLOOD UREA NITROGEN 19 mg/dL (7-18); CALCIUM 9.6 mg/dL (8.5-10.1); CARBON DIOXIDE 32.6 mmol/L (21-32); CHLORIDE 101 mmol/L (98-107); COR CA(FOR HYPOALB) 10.4 mg/dL (8.5-10.1); COR NA(FOR HYPERGLY) 141 mmol/L (136-145); CREATININE 0.79 mg/dL (0.70-1.30); SODIUM 139 mmol/L (136-145); TOTAL PROTEIN 6.6 g/dL (6.4-8.2); eGFR NON BLACK RACES > 60 (>60)
[2019-01-13] MEDS: PULMICORT NEB TX 0.5 MG NEB SCH ×2 (08:00→20:14)
[2019-01-13] MEDS: ALBUMIN HUMAN 25%- 100 ML 100 ML IV SCH (09:38)
[2019-01-13] MEDS: ASPIRIN EC 81 MG PO SCH (09:39)
[2019-01-13] MEDS: THEO-DUR TAB 200 MG PO SCH (09:39)
[2019-01-13] MEDS: VITAMIN B-12 PO SCH (09:39)
[2019-01-13] MEDS: SENOKOT PO SCH ×3 (09:40→21:07)
[2019-01-13] MEDS: COZAAR PO SCH (09:40)
[2019-01-13] MEDS: PROTONIX TAB 40 MG PO SCH (09:40)
[2019-01-13] MEDS: LANOXIN PO SCH (09:40)
[2019-01-13] MEDS: OSCAL+D or CALTRATE+D PO SCH (09:40)
[2019-01-13] MEDS: VITAMIN D3 PO SCH ×2 (09:41→21:08)
[2019-01-13] MEDS: LOPRESSOR TAB 50 MG PO SCH ×2 (09:41→21:05)
[2019-01-13] MEDS: AZULFIDINE PO SCH ×2 (09:42→21:04)
[2019-01-13] MEDS: ACTOS PO SCH (09:42)
[2019-01-13] MEDS: LOVENOX INJ 40 MG SYR SC SCH (09:44)
[2019-01-13] MEDS: FLONASE NASAL SPRAY ENOSTRIL SCH (09:49)
--- NOTE | 2019-01-13 17:50 | PCM.PROG ---
Progress Note - Progress Note for Day of Date of Exam: 01/12/19 - Subjective Subjective: IS BEING TREATED FOR LOWER EXTREMITY SWELLING, BRONCHOPNEUMONIA, AND SHORTNESS OF BREATH. HE IS CURRENTLY IN THE LATER STAGES OF PULMONARY FIBROSIS. TODAY, HE IS ALERT AND ORIENTED, LYING IN BED ON MORNING ROUNDS. HE CONTINUES WITH TRACE EDEMA TO LOWER EXTREMITIES AND SEVERE SHORTNESS OF BREATH. HE IS UTILIZING THE BIPAP. FAMILY REPORTS THAT OXYGEN SATURATIONS CONTINUE TO DROP WHEN THE BIPAP IS REMOVED. WE HIS IS ON NASAL CANNULA, OXYGEN SATURATIONS REMAIN IN THE 70s-lower 80s. HIS VITALS THIS MORNING ARE: 98.4-98-23-86%-163/74. LABS WERE OBTAINED. ABNORMAL LAB VALUES INCLUDE THE FOLLOWING: WBC 11.6, RBC 3.48, HGB 9.8, HCT 29.8, PLT COUNT 144, GLUCOSE 219, ALT 10, ALBUMIN 3.0. AN ABG WAS OBTAINED AND REVEALED: PH 7.470, PC02 48.0, P02 80.0, HC03 34.9, 02 SATURATION 96.0, BASE EXCESS 9.8, FI02 55 ON BIPAP. SPUTUM CULTURE REVEALED GROWTH OF E.COLI. A CHEST XRAY WAS OBTAINED AND REVEALED: Stable chronic interstitial fibrotic changes throughout the lungs. HE IS CURRENTLY RECEIVING IV FORTAZ, SOLU-MEDROL 80MG IV Q8H, ALBUMIN 25% IV DAILY, RESPIRATORY TREATMENTS, SUPPLEMENTAL OXYGEN, AND HOME MEDS WERE RESUMED. WE WILL CONTINUE WITH CURRENT PLAN OF CARE TODAY AND START IVÁN-DUR 200MG PO BID. OTHERWISE, WE WILL FOLLOW UP WITH AM LABS AND CHEST XRAY AND CONTINUE TO MONIT OR. WE WILL SPEAK WITH CASE MANAGEMENT ABOUT ARRANGING FOR BIPAP AT HOME. - Past Medical Family Social History Past Med/Fam/Surg Hx: No changes since H&P Allergies: Allergies No Known Drug Allergies Allergy (Verified 04/09/18 16:19) - Review of Systems ROS: No change since H&P - Vital Signs and I&O's Vital Signs: Temperature 98.0 F Pulse Rate [Right Brachial] 82 Pulse Rate 82 Respiratory Rate 34 Blood Pressure [Right Arm] 138/72 Blood Pressure [Left Arm] 140/64 Blood Pressure 146/70 O2 Sat by Pulse Oximetry 92 Intake and Output: Intake & Output 01/11/19 01/12/19 01/13/19 01/14/19 11:59 11:59 11:59 11:59 Intake Total 3470 / 3470 2900 / 2900 2550 / 2550 360 / 360 Output Total 3800 / 3800 1850 / 1850 4450 / 4450 1000 / 1000 Balance -330 / -330 1050 / 1050 -1900 / -1900 -640 / -640 - Physical Exam Oriented: Normal Eyes: Normal Ear: Normal Nose: Normal Throat: Normal Respiratory: Generalized, Diminished, Wheezes Cardiovascular: Normal : Normal Auscultation: Bowel Sounds: Normal Palpation: Normal Tenderness: Normal Skin: Normal Musculoskeletal: Right, Left, Leg, Swelling, Tender Psychiatric: Normal Mood Description: Calm Affect: Normal Speech Pattern: Clear, Appropriate - Laboratory and Diagnostics Result Diagrams: 01/13/19 06:15 01/13/19 06:15 Labs: 01/07/19 12:10 Sputum - Expectorated Sputum Sputum Culture - Final Escherichia Coli 01/07/19 12:10 Sputum - Expectorated Sputum - Final Laboratory WBC 9.5 X10^3/uL (3.6-10.0) 01/13/19 06:15 RBC 3.58 X10^6/uL (4.7-6.0) L 01/13/19 06:15 Hgb 10.1 g/dL (13.5-18.0) L 01/13/19 06:15 Hct 30.2 % (42.0-54.0) L 01/13/19 06:15 MCV 84.3 fL (80.0-100.0) 01/13/19 06:15 MCH 28.1 pg (27.0-34.0) 01/13/19 06:15 MCHC 33.3 g/dL (33.0-35.0) 01/13/19 06:15 RDW 16.8 % (11.6-16.5) H 01/13/19 06:15 Plt Count 163 X10^3/uL (150.0-450.0) 01/13/19 06:15 Plt Count Comment Decreased (ADEQUATE) 01/12/19 05:04 MPV 8.0 fL (7.4-11.0) 01/13/19 06:15 Neut % (Auto) 82.2 % (42.0-75.0) H 01/13/19 06:15 Lymph % (Auto) 6.5 % (21.0-51.0) L 01/13/19 06:15 [place] % (Auto) 10.9 % (0.0-13.0) 01/13/19 06:15 Eos % (Auto) 0.0 % (0.9-2.9) L 01/13/19 06:15 Baso % (Auto) 0.4 % (0.2-1.0) 01/13/19 06:15 Neut # (Auto) 7.8 x10^3/uL (2.2-4.8) H 01/13/19 06:15 Lymph # (Auto) 0.6 X10^3/uL (1.3-2.9) L 01/13/19 06:15 [place] # (Auto) 1.0 x10^3/uL (0.3-0.8) H 01/13/19 06:15 Eos # (Auto) 0.0 x10^3/uL (0.0-0.2) 01/13/19 06:15 Baso # (Auto) 0.0 X10^3/uL (0.0-0.1) 01/13/19 06:15 Absolute Nucleated RBC 0.1 /100WBC 01/13/19 06:15 Total Counted 100 01/12/19 05:04 Neutrophils % (Manual) 86 % (39-76) H 01/12/19 05:04 Band Neutrophils % 2 % (0-10) 01/11/19 06:35 Lymphocytes % (Manual) 14 % (13-43) 01/12/19 05:04 Monocytes % (Manual) 3 % (4-9) L 01/11/19 06:35 Basophils % (Manual) 1 % (0-1) 01/11/19 06:35 Plt Morphology Comment Normal (NORMAL) 01/12/19 05:04 RBC Morphology Abnormal (NORMAL) 01/12/19 05:04 Hypochromasia Slight A 01/12/19 05:04 Sample Site Rrad 01/13/19 06:06 ABG pH 7.480 (7.35-7.45) H 01/13/19 06:06 ABG pCO2 51.0 mmHg (35.0-45.0) H* 01/13/19 06:06 ABG pO2 37.0 mmHg (80.0-100.0) L* 01/13/19 06:06 ABG HCO3 38.0 mmol/L (22-26) H* 01/13/19 06:06 ABG O2 Saturation 75.0 % (90-100) L* 01/13/19 06:06 ABG Base Excess 12.6 mmol/L (-2.0-2.0) H 01/13/19 06:06 Wilmar Test Pos 01/13/19 06:06 A-a Gradient 291.0 mmHg 01/13/19 06:06 FiO2 55.0 01/13/19 06:06 Blood Gas Comments Brittni abg well-mtf 01/13/19 06:06 Sodium 139 mmol/L (136-145) 01/13/19 06:15 Corrected Sodium 141 mmol/L (136-145) 01/13/19 06:15 Potassium 4.1 mmol/L (3.5-5.1) 01/13/19 06:15 Chloride 101 mmol/L (98-107) 01/13/19 06:15 Carbon Dioxide 32.6 mmol/L (21-32) H 01/13/19 06:15 BUN 19 mg/dL (7-18) H 01/13/19 06:15 Creatinine 0.79 mg/dL (0.70-1.30) 01/13/19 06:15 Est GFR (MDRD) Af Amer > 60 (>60) 01/13/19 06:15 Est GFR (MDRD) Non-Af > 60 (>60) 01/13/19 06:15 Glucose 187 mg/dL (65-99) H 01/13/19 06:15 Calcium 9.6 mg/dL (8.5-10.1) 01/13/19 06:15 Corrected Calcium 10.4 mg/dL (8.5-10.1) H 01/13/19 06:15 Magnesium 1.9 mg/dL (1.7-2.9) 01/08/19 04:03 Total Bilirubin 0.30 mg/dL (0.2-1.0) 01/13/19 06:15 AST 17 Units/L (15-37) 01/13/19 06:15 ALT 12 Units/L (12-78) 01/13/19 06:15 Alkaline Phosphatase 62 Units/L (46-116) 01/13/19 06:15 Creatine Kinase 20 Units/L (39-308) L 01/07/19 03:05 CK-MB (CK-2) 3.2 ng/mL (0-4.0) 01/07/19 03:05 CK/CKMB % Calc 16.0 % (<4) 01/07/19 03:05 Troponin I < 0.02 ng/mL (0-1.5) 01/07/19 03:05 Total Protein 6.6 g/dL (6.4-8.2) 01/13/19 06:15 Albumin 3.0 g/dL (3.4-5.0) L 01/13/19 06:15 Globulin 3.6 g/dL (2.5-4.5) 01/13/19 06:15 Albumin/Globulin Ratio 0.8 Ratio (1.1-2.1) L 01/13/19 06:15 Digoxin < 0.20 ng/mL (0.9-2) L 01/07/19 03:05 - Plan (1) Bronchopneumonia Status: Acute Plan: BIPAP, IV FORTAZ, SOLU-MEDROL 80MG IV Q8H, RESPIRATORY TX, SUPPLEMENTAL OXYGEN, CONTINUE TO MONITOR (2) Lower extremity edema Status: Acute Plan: CONTINUE HOME MEDS, CONTINUE TO MONITOR (3) Shortness of breath Status: Acute (4) COPD (chronic obstructive pulmonary disease) Status: Chronic Qualifiers: COPD type: COPD with acute lower respiratory infection Qualified Code(s): J44.0 - Chronic obstructive pulmonary disease with acute lower respiratory infection (5) Pulmonary fibrosis Status: Chronic (6) Diabetes mellitus Status: Chronic Qualifiers: Diabetes mellitus type: type 2 Diabetes mellitus fci insulin use: with intermission coordinator use Diabetes mellitus complication status: with hyperglycemia Qualified Code(s): E11.65 - Type 2 diabetes mellitus with hyperglycemia; Z79.4 - terminal worker (current) use of insulin
--- NOTE | 2019-01-13 19:18 | PCM.PROG ---
Progress Note - Progress Note for Day of Date of Exam: 01/13/19 - Subjective Subjective: IS BEING TREATED FOR LOWER EXTREMITY SWELLING, BRONCHOPNEUMONIA, AND SHORTNESS OF BREATH. HE IS CURRENTLY IN THE LATER STAGES OF PULMONARY FIBROSIS. TODAY, HE IS ALERT AND ORIENTED, LYING IN BED ON MORNING ROUNDS. HE CONTINUES WITH TRACE EDEMA TO LOWER EXTREMITIES AND SEVERE SHORTNESS OF BREATH. HE IS UTILIZING THE BIPAP. FAMILY REPORTS THAT OXYGEN SATURATIONS CONTINUE TO DROP WHEN THE BIPAP IS REMOVED. WHEN HE IS ON NASAL CANNULA, OXYGEN SATURATIONS OCCASIONALLY DROP TO THE 50s. HIS VITALS THIS MORNING ARE: 98.4-107-23-86%bipap-163/74. LABS WERE OBTAINED. ABNORMAL LAB VALUES INCLUDE THE FOLLOWING: RBC 3.58, HGB 10.1, HCT 30.2, GLUCOSE 219, ALT 10, ALBUMIN 3.0. AN ABG WAS OBTAINED THIS MORNING AND REVEALED: PH 7.480, PC02 51.0, PO2 37.0, HC03 38.0, 02 SATURATION 75.0, BASE EXCESS 12.6. SPUTUM CULTURE REVEALED GROWTH OF E.COLI. A CHEST XRAY WAS OBTAINED AND REVEALED: No significant change from the prior examination. HE IS CURRENTLY RECEIVING IV FORTAZ, SOLU-MEDROL 80MG IV Q8H, ALBUMIN 25% IV DAILY, IVÁN-DUR, RESPIRATORY TREATMENTS, SUPPLEMENTAL OXYGEN, AND HIS REGULAR HOME MEDICATIONS. WE WILL CONTINUE WITH CURRENT PLAN OF CARE TODAY AND INCREASE IVÁN-DUR TO 300MG PO BID. OTHERWISE, WE WILL FOLLOW UP WITH AM LABS AND CHEST XRAY AND CONTINUE TO MONITOR. WE WILL SPEAK WITH CASE MANAGEMENT IS ARRANGING FOR BIPAP AT HOME AND HOSPICE CARE. - Past Medical Family Social History Past Med/Fam/Surg Hx: No changes since H&P Allergies: Allergies No Known Drug Allergies Allergy (Verified 04/09/18 16:19) - Review of Systems ROS: No change since H&P - Vital Signs and I&O's Vital Signs: Temperature 98.0 F Pulse Rate [Right Brachial] 82 Pulse Rate 82 Respiratory Rate 34 Blood Pressure [Right Arm] 138/72 Blood Pressure [Left Arm] 140/64 Blood Pressure 146/70 O2 Sat by Pulse Oximetry 92 Intake and Output: Intake & Output 01/11/19 01/12/19 01/13/19 01/14/19 11:59 11:59 11:59 11:59 Intake Total 3470 / 3470 2900 / 2900 2550 / 2550 360 / 360 Output Total 3800 / 3800 1850 / 1850 4450 / 4450 1000 / 1000 Balance -330 / -330 1050 / 1050 -1900 / -1900 -640 / -640 - Physical Exam Oriented: Normal Eyes: Normal Ear: Normal Nose: Normal Throat: Normal Respiratory: Generalized, Diminished, Wheezes Cardiovascular: Normal : Normal Auscultation: Bowel Sounds: Normal Tenderness: Normal Skin: Normal Musculoskeletal: Right, Left, Leg, Swelling, Tender Psychiatric: Normal Mood Description: Calm Affect: Normal Speech Pattern: Clear, Appropriate - Laboratory and Diagnostics Result Diagrams: 01/13/19 06:15 01/13/19 06:15 Labs: 01/07/19 12:10 Sputum - Expectorated Sputum Sputum Culture - Final Escherichia Coli 01/07/19 12:10 Sputum - Expectorated Sputum - Final Laboratory WBC 9.5 X10^3/uL (3.6-10.0) 01/13/19 06:15 RBC 3.58 X10^6/uL (4.7-6.0) L 01/13/19 06:15 Hgb 10.1 g/dL (13.5-18.0) L 01/13/19 06:15 Hct 30.2 % (42.0-54.0) L 01/13/19 06:15 MCV 84.3 fL (80.0-100.0) 01/13/19 06:15 MCH 28.1 pg (27.0-34.0) 01/13/19 06:15 MCHC 33.3 g/dL (33.0-35.0) 01/13/19 06:15 RDW 16.8 % (11.6-16.5) H 01/13/19 06:15 Plt Count 163 X10^3/uL (150.0-450.0) 01/13/19 06:15 Plt Count Comment Decreased (ADEQUATE) 01/12/19 05:04 MPV 8.0 fL (7.4-11.0) 01/13/19 06:15 Neut % (Auto) 82.2 % (42.0-75.0) H 01/13/19 06:15 Lymph % (Auto) 6.5 % (21.0-51.0) L 01/13/19 06:15 [place] % (Auto) 10.9 % (0.0-13.0) 01/13/19 06:15 Eos % (Auto) 0.0 % (0.9-2.9) L 01/13/19 06:15 Baso % (Auto) 0.4 % (0.2-1.0) 01/13/19 06:15 Neut # (Auto) 7.8 x10^3/uL (2.2-4.8) H 01/13/19 06:15 Lymph # (Auto) 0.6 X10^3/uL (1.3-2.9) L 01/13/19 06:15 [place] # (Auto) 1.0 x10^3/uL (0.3-0.8) H 01/13/19 06:15 Eos # (Auto) 0.0 x10^3/uL (0.0-0.2) 01/13/19 06:15 Baso # (Auto) 0.0 X10^3/uL (0.0-0.1) 01/13/19 06:15 Absolute Nucleated RBC 0.1 /100WBC 01/13/19 06:15 Total Counted 100 01/12/19 05:04 Neutrophils % (Manual) 86 % (39-76) H 01/12/19 05:04 Band Neutrophils % 2 % (0-10) 01/11/19 06:35 Lymphocytes % (Manual) 14 % (13-43) 01/12/19 05:04 Monocytes % (Manual) 3 % (4-9) L 01/11/19 06:35 Basophils % (Manual) 1 % (0-1) 01/11/19 06:35 Plt Morphology Comment Normal (NORMAL) 01/12/19 05:04 RBC Morphology Abnormal (NORMAL) 01/12/19 05:04 Hypochromasia Slight A 01/12/19 05:04 Sample Site Rrad 01/13/19 06:06 ABG pH 7.480 (7.35-7.45) H 01/13/19 06:06 ABG pCO2 51.0 mmHg (35.0-45.0) H* 01/13/19 06:06 ABG pO2 37.0 mmHg (80.0-100.0) L* 01/13/19 06:06 ABG HCO3 38.0 mmol/L (22-26) H* 01/13/19 06:06 ABG O2 Saturation 75.0 % (90-100) L* 01/13/19 06:06 ABG Base Excess 12.6 mmol/L (-2.0-2.0) H 01/13/19 06:06 Wilmar Test Pos 01/13/19 06:06 A-a Gradient 291.0 mmHg 01/13/19 06:06 FiO2 55.0 01/13/19 06:06 Blood Gas Comments Brittni abg well-mtf 01/13/19 06:06 Sodium 139 mmol/L (136-145) 01/13/19 06:15 Corrected Sodium 141 mmol/L (136-145) 01/13/19 06:15 Potassium 4.1 mmol/L (3.5-5.1) 01/13/19 06:15 Chloride 101 mmol/L (98-107) 01/13/19 06:15 Carbon Dioxide 32.6 mmol/L (21-32) H 01/13/19 06:15 BUN 19 mg/dL (7-18) H 01/13/19 06:15 Creatinine 0.79 mg/dL (0.70-1.30) 01/13/19 06:15 Est GFR (MDRD) Af Amer > 60 (>60) 01/13/19 06:15 Est GFR (MDRD) Non-Af > 60 (>60) 01/13/19 06:15 Glucose 187 mg/dL (65-99) H 01/13/19 06:15 Calcium 9.6 mg/dL (8.5-10.1) 01/13/19 06:15 Corrected Calcium 10.4 mg/dL (8.5-10.1) H 01/13/19 06:15 Magnesium 1.9 mg/dL (1.7-2.9) 01/08/19 04:03 Total Bilirubin 0.30 mg/dL (0.2-1.0) 01/13/19 06:15 AST 17 Units/L (15-37) 01/13/19 06:15 ALT 12 Units/L (12-78) 01/13/19 06:15 Alkaline Phosphatase 62 Units/L (46-116) 01/13/19 06:15 Creatine Kinase 20 Units/L (39-308) L 01/07/19 03:05 CK-MB (CK-2) 3.2 ng/mL (0-4.0) 01/07/19 03:05 CK/CKMB % Calc 16.0 % (<4) 01/07/19 03:05 Troponin I < 0.02 ng/mL (0-1.5) 01/07/19 03:05 Total Protein 6.6 g/dL (6.4-8.2) 01/13/19 06:15 Albumin 3.0 g/dL (3.4-5.0) L 01/13/19 06:15 Globulin 3.6 g/dL (2.5-4.5) 01/13/19 06:15 Albumin/Globulin Ratio 0.8 Ratio (1.1-2.1) L 01/13/19 06:15 Digoxin < 0.20 ng/mL (0.9-2) L 01/07/19 03:05 - Plan (1) Bronchopneumonia Status: Acute Plan: BIPAP, IV FORTAZ, SOLU-MEDROL 80MG IV Q8H, IVÁN-DUR 300MG PO BID, RESPIRATORY TX, SUPPLEMENTAL OXYGEN, CONTINUE TO MONITOR (2) Lower extremity edema Status: Acute Plan: CONTINUE HOME MEDS, CONTINUE TO MONITOR (3) Shortness of breath Status: Acute (4) COPD (chronic obstructive pulmonary disease) Status: Chronic Qualifiers: COPD type: COPD with acute lower respiratory infection Qualified Code(s): J44.0 - Chronic obstructive pulmonary disease with acute lower respiratory infection (5) Pulmonary fibrosis Status: Chronic (6) Diabetes mellitus Status: Chronic Qualifiers: Diabetes mellitus type: type 2 Diabetes mellitus nursing home insulin use: with rodent exterminator use Diabetes mellitus complication status: with hyperglycemia Qualified Code(s): E11.65 - Type 2 diabetes mellitus with hyperglycemia; Z79.4 - retirement (current) use of insulin
[2019-01-13] MEDS ORDERED: MORPHINE SULFATE INJ 2 MG INJ ONE (19:42)
[2019-01-13] MEDS: MORPHINE SULFATE INJ 2 MG INJ IVP PRN (19:53)
[2019-01-13] MEDS: SNACK - Diabetic Appropriate PO SCH (21:02)
[2019-01-13] MEDS: THEO-DUR TAB 300 MG PO SCH (21:05)
[2019-01-13] MEDS: DESYREL PO SCH (21:05)
[2019-01-13] MEDS: LIPITOR TAB 40 MG PO SCH (21:05)
[2019-01-13] MEDS: LANTUS SC SCH (21:06)
[2019-01-14] MEDS: NS 1000 ML 1,000 ML IV SCH ×4 (05:31→23:12)
[2019-01-14] MEDS: NEURONTIN CAP 400 MG PO SCH ×3 (05:32→23:15)
[2019-01-14] MEDS: FORTAZ or TAZICEF VIAL INJ IVP SCH ×3 (05:32→22:00)
[2019-01-14 06:03] LABS: ABG BASE EXCESS 16.6 mmol/L (-2.0-2.0)
[2019-01-14 06:04] LABS: ABG HCO3 43.4 mmol/L (22-26)
[2019-01-14 06:05] LABS: ABG ALLEN TEST POS
[2019-01-14] MEDS: XOPENEX 1.25 MG/3 ML NEBULE NEB SCH ×4 (06:08→20:41)
--- NOTE | 2019-01-14 06:11 | RAD ---
HISTORY: Shortness of breath Study: Chest AP portable Comparison: 01/13/2019 Findings: The heart is enlarged. Diffuse severe bilateral chronic fibrotic interstitial lung disease is again identified not significantly changed in degree or distribution from the prior examination. Right apical pleural thickening is also stable. No definite alveolar filling is identified. No definite pleural effusions are identified. The bony thorax is unremarkable. With this degree of chronic interstitial lung disease a superimposed acute interstitial process would be difficult to exclude as would small parenchymal nodules. IMPRESSION: Continued mild cardiomegaly No change severe diffuse chronic interstitial lung disease Reported By:
[2019-01-14 06:43] LABS: BASOPHILS # (AUTO) 0.1 X10^3/uL (0.0-0.1); BASOPHILS % (AUTO) 1.1 % (0.2-1.0); EOSINOPHILS # (AUTO) 0.1 x10^3/uL (0.0-0.2); EOSINOPHILS % (AUTO) 0.6 % (0.9-2.9); HEMOGLOBIN 10.6 g/dL (13.5-18.0); LYMPHOCYTES # (AUTO) 0.7 X10^3/uL (1.3-2.9); LYMPHOCYTES % (AUTO) 5.9 % (21.0-51.0); MEAN CORPUSCULAR HEMOGLOBIN 27.9 pg (27.0-34.0); MEAN CORPUSCULAR HGB CONC 33.1 g/dL (33.0-35.0); MEAN CORPUSCULAR VOLUME 84.2 fL (80.0-100.0); MEAN PLATELET VOLUME 8.4 fL (7.4-11.0); MONOCYTES # (AUTO) 0.9 x10^3/uL (0.3-0.8); MONOCYTES % (AUTO) 8.4 % (0.0-13.0); NEUTROPHILS # (AUTO) 9.4 x10^3/uL (2.2-4.8); PLATELET COUNT 147 X10^3/uL (150.0-450.0); RED CELL DISTRIBUTION WIDTH 16.5 % (11.6-16.5); WHITE BLOOD COUNT 11.2 X10^3/uL (3.6-10.0)
[2019-01-14 06:52] LABS: ALANINE AMINOTRANSFERASE 11 Units/L (12-78); ALBUMIN 2.8 g/dL (3.4-5.0); ALKALINE PHOSPHATASE 71 Units/L (46-116); ASPARTATE AMINO TRANSFERASE 22 Units/L (15-37); BLOOD UREA NITROGEN 20 mg/dL (7-18); CALCIUM 9.3 mg/dL (8.5-10.1); CARBON DIOXIDE 35.5 mmol/L (21-32); CHLORIDE 98 mmol/L (98-107); COR CA(FOR HYPOALB) 10.3 mg/dL (8.5-10.1); COR NA(FOR HYPERGLY) 138 mmol/L (136-145); CREATININE 0.72 mg/dL (0.70-1.30); SODIUM 137 mmol/L (136-145); TOTAL PROTEIN 6.4 g/dL (6.4-8.2); eGFR NON BLACK RACES > 60 (>60)
[2019-01-14 07:33] LABS: BAND NEUTROPHILS % 3 % (0-10)
[2019-01-14 07:34] LABS: PLATELET MORPHOLOGY COMMENT NORMAL (NORMAL)
[2019-01-14] MEDS: PULMICORT NEB TX 0.5 MG NEB SCH ×2 (08:30→20:41)
[2019-01-14] MEDS: MORPHINE SULFATE INJ 2 MG INJ IVP PRN ×2 (08:35→15:12)
[2019-01-14] MEDS: K-DUR TAB 20 MEQ PO PRN (08:43)
[2019-01-14] MEDS: AZULFIDINE PO SCH ×2 (08:43→21:44)
[2019-01-14] MEDS: LANOXIN PO SCH (08:44)
[2019-01-14] MEDS: VITAMIN D3 PO SCH ×2 (08:44→23:13)
[2019-01-14] MEDS: OSCAL+D or CALTRATE+D PO SCH (08:44)
[2019-01-14] MEDS: PROTONIX TAB 40 MG PO SCH (08:44)
[2019-01-14] MEDS: LOPRESSOR TAB 50 MG PO SCH ×2 (08:46→23:11)
[2019-01-14] MEDS: ASPIRIN EC 81 MG PO SCH (08:46)
[2019-01-14] MEDS: COZAAR PO SCH (08:47)
[2019-01-14] MEDS: ACTOS PO SCH (08:47)
[2019-01-14] MEDS: THEO-DUR TAB 300 MG PO SCH ×2 (08:48→23:12)
[2019-01-14] MEDS: VITAMIN B-12 PO SCH (08:48)
[2019-01-14] MEDS: LOVENOX INJ 40 MG SYR SC SCH (08:49)
[2019-01-14] MEDS: ALBUMIN HUMAN 25%- 100 ML 100 ML IV SCH (08:50)
[2019-01-14] MEDS: FLONASE NASAL SPRAY ENOSTRIL SCH (08:51)
[2019-01-14] MEDS: SENOKOT PO SCH ×2 (08:51→23:13)
[2019-01-14] MEDS ORDERED: FIORICET TAB PO PRN (10:25)
[2019-01-14] MEDS: SOLU-Medrol 40 MG VIAL IVP SCH ×3 (12:09→21:40)
[2019-01-14] MEDS: ATIVAN INJ 2 MG VIAL IVP PRN ×3 (12:10→22:00)
[2019-01-14] MEDS: NEOSPORIN OINT TOP SCH ×2 (16:57→21:30)
[2019-01-14] MEDS: HumuLIN R SUBCUT PRN ×2 (17:03→21:30)
[2019-01-14] MEDS: LANTUS SC SCH (22:00)
[2019-01-14] MEDS: SNACK - Diabetic Appropriate PO SCH (23:10)
[2019-01-14] MEDS: DESYREL PO SCH (23:11)
[2019-01-14] MEDS: LIPITOR TAB 40 MG PO SCH (23:11)
[2019-01-15] MEDS: MORPHINE SULFATE INJ 2 MG INJ IVP PRN ×3 (00:57→22:58)
[2019-01-15] MEDS: ATIVAN INJ 2 MG VIAL IVP PRN ×2 (05:00→21:10)
[2019-01-15] MEDS: XOPENEX 1.25 MG/3 ML NEBULE NEB SCH ×3 (05:19→20:24)
[2019-01-15 05:30] LABS: ABG BASE EXCESS 13.7 mmol/L (-2.0-2.0)
[2019-01-15 05:31] LABS: ABG ALLEN TEST POS; ABG HCO3 42.4 mmol/L (22-26)
[2019-01-15] MEDS: NEURONTIN CAP 400 MG PO SCH ×3 (05:40→21:04)
[2019-01-15] MEDS: SOLU-Medrol 40 MG VIAL IVP SCH ×3 (05:41→21:05)
[2019-01-15] MEDS: FORTAZ or TAZICEF VIAL INJ IVP SCH ×3 (05:42→21:08)
[2019-01-15] MEDS: NS 1000 ML 1,000 ML IV SCH ×2 (05:42→15:06)
--- NOTE | 2019-01-15 06:05 | RAD ---
HISTORY: Shortness of breath Study: Chest AP portable Comparison: 01/04/2019 Findings: The heart is minimally enlarged. Diffuse severe chronic fibrotic interstitial lung disease is again identified unchanged from the prior examination. Chronic right apical pleural thickening is not well demonstrated on this examination as the apices are not included on the image. No definite alveolar infiltrates. No definite pleural effusions. The bony thorax is unremarkable. IMPRESSION: No significant change from the prior examination Reported By:
[2019-01-15 06:24] LABS: BASOPHILS # (AUTO) 0.1 X10^3/uL (0.0-0.1); BASOPHILS % (AUTO) 0.5 % (0.2-1.0); HEMATOCRIT 33.9 % (42.0-54.0); HEMOGLOBIN 11.2 g/dL (13.5-18.0); LYMPHOCYTES # (AUTO) 0.3 X10^3/uL (1.3-2.9); LYMPHOCYTES % (AUTO) 2.6 % (21.0-51.0); MEAN CORPUSCULAR HEMOGLOBIN 28.1 pg (27.0-34.0); MEAN CORPUSCULAR HGB CONC 33.1 g/dL (33.0-35.0); MEAN CORPUSCULAR VOLUME 84.9 fL (80.0-100.0); MEAN PLATELET VOLUME 8.2 fL (7.4-11.0); MONOCYTES # (AUTO) 0.4 x10^3/uL (0.3-0.8); MONOCYTES % (AUTO) 4.2 % (0.0-13.0); NEUTROPHILS # (AUTO) 9.7 x10^3/uL (2.2-4.8); NEUTROPHILS % (AUTO) 92.7 % (42.0-75.0); PLATELET COUNT 127 X10^3/uL (150.0-450.0); RED BLOOD COUNT 3.99 X10^6/uL (4.7-6.0); RED CELL DISTRIBUTION WIDTH 16.6 % (11.6-16.5); WHITE BLOOD COUNT 10.5 X10^3/uL (3.6-10.0)
[2019-01-15 06:52] LABS: ALANINE AMINOTRANSFERASE 8 Units/L (12-78); ALKALINE PHOSPHATASE 99 Units/L (46-116); ASPARTATE AMINO TRANSFERASE 17 Units/L (15-37); BLOOD UREA NITROGEN 28 mg/dL (7-18); CALCIUM 9.9 mg/dL (8.5-10.1); CARBON DIOXIDE 32.1 mmol/L (21-32); CHLORIDE 98 mmol/L (98-107); COR CA(FOR HYPOALB) 10.7 mg/dL (8.5-10.1); COR NA(FOR HYPERGLY) 141 mmol/L (136-145); CREATININE 0.68 mg/dL (0.70-1.30); SODIUM 139 mmol/L (136-145); TOTAL PROTEIN 6.9 g/dL (6.4-8.2); eGFR NON BLACK RACES > 60 (>60)
[2019-01-15 07:01] LABS: BAND NEUTROPHILS % 2 % (0-10)
[2019-01-15 07:02] LABS: PLATELET MORPHOLOGY COMMENT NORMAL (NORMAL)
[2019-01-15] MEDS: PULMICORT NEB TX 0.5 MG NEB SCH ×2 (08:32→20:24)
[2019-01-15] MEDS: ALBUMIN HUMAN 25%- 100 ML 100 ML IV SCH (09:29)
[2019-01-15] MEDS: VITAMIN D3 PO SCH ×2 (09:32→21:03)
[2019-01-15] MEDS: VITAMIN B-12 PO SCH (09:32)
[2019-01-15] MEDS: SENOKOT PO SCH ×2 (09:33→21:05)
[2019-01-15] MEDS: THEO-DUR TAB 300 MG PO SCH ×2 (09:33→21:05)
[2019-01-15] MEDS: ASPIRIN EC 81 MG PO SCH (09:34)
[2019-01-15] MEDS: OSCAL+D or CALTRATE+D PO SCH (09:34)
[2019-01-15] MEDS: PROTONIX TAB 40 MG PO SCH (09:34)
[2019-01-15] MEDS: ACTOS PO SCH (09:34)
[2019-01-15] MEDS: AZULFIDINE PO SCH ×2 (09:35→21:02)
[2019-01-15] MEDS: LANOXIN PO SCH (09:36)
[2019-01-15] MEDS: LOPRESSOR TAB 50 MG PO SCH ×2 (09:36→21:08)
[2019-01-15] MEDS: COZAAR PO SCH (09:36)
[2019-01-15] MEDS: NEOSPORIN OINT TOP SCH ×2 (09:37→21:03)
[2019-01-15] MEDS: FLONASE NASAL SPRAY ENOSTRIL SCH (09:37)
[2019-01-15] MEDS: LOVENOX INJ 40 MG SYR SC SCH (09:40)
--- NOTE | 2019-01-15 17:50 | PCM.PROG ---
Progress Note - Progress Note for Day of Date of Exam: 01/14/19 - Subjective Subjective: IS BEING TREATED FOR LOWER EXTREMITY SWELLING, BRONCHOPNEUMONIA, AND SHORTNESS OF BREATH. HE IS CURRENTLY IN THE LATER STAGES OF PULMONARY FIBROSIS. TODAY, HE IS ALERT AND ORIENTED, LYING IN BED ON MORNING ROUNDS. HE CONTINUES WITH MODERATE SHORTNESS OF BREATH AND ALSO REPORTS A HEA DACHE TODAY. HE CONTINUES TO UTILIZING THE BIPAP. RESPIRATORY STAFF REPORTS THAT OXYGEN SATURATIONS CONTINUE TO DROP WHEN THE BIPAP IS REMOVED. HIS VITALS THIS MORNING ARE: 98.8-110-36-88%BIPAP-131/60. LABS WERE OBTAINED. ABNORMAL LAB VALUES INCLUDE THE FOLLOWING: WBC 11.2, RBC 3.80, HGB 10.6, HCT 32.0, PLT COUNT 147, CARBON DIOXIDE 35.5, BUN 20, GLUCOSE 122, ALT 11, ALBUMIN 2.8. SPUTUM CULTURE REVEALED GROWTH OF E.COLI. A CHEST XRAY WAS OBTAINED AND REVEALED: Continued mild cardiomegaly. No change severe diffuse chronic interstitial lung disease. HE IS CURRENTLY RECEIVING IV FORTAZ, SOLU-MEDROL 80MG IV Q8H, ALBUMIN 25% IV DAILY, IVÁN-DUR, RESPIRATORY TREATMENTS, SUPPLEMENTAL OXYGEN, AND HIS REGULAR HOME MEDICATIONS. WE WILL CONTINUE WITH CURRENT PLAN OF CARE TODAY AND ADD FIORCET 1 TAB PO QID PRN. WE WILL ALSO ADD ATIVAN 1MG IV Q4H PRN AGITATION. OTHERWISE, WE WILL FOLLOW UP WITH AM LABS AND CHEST XRAY AND CONTINUE TO MONITOR. - Past Medical Family Social History Past Med/Fam/Surg Hx: No changes since H&P Allergies: Allergies No Known Drug Allergies Allergy (Verified 04/09/18 16:19) - Review of Systems ROS: No change since H&P - Vital Signs and I&O's Vital Signs: Temperature 98.2 F Pulse Rate [Right Brachial] 109 Pulse Rate 95 Respiratory Rate 32 Blood Pressure [Right Arm] 168/78 Blood Pressure [Left Arm] 140/64 Blood Pressure 146/70 O2 Sat by Pulse Oximetry 94 Intake and Output: Intake & Output 01/13/19 01/14/19 01/15/19 01/16/19 11:59 11:59 11:59 11:59 Intake Total 2550 / 2550 1690 / 1690 2770 / 2770 Output Total 4450 / 4450 2775 / 2775 1350 / 1350 Balance -1900 / -1900 -1085 / -1085 1420 / 1420 - Physical Exam Oriented: Normal Eyes: Normal Ear: Normal Nose: Normal Throat: Normal Respiratory: Generalized, Diminished, Wheezes Cardiovascular: Normal : Normal Auscultation: Bowel Sounds: Normal Tenderness: Normal Skin: Normal Musculoskeletal: Right, Left, Leg, Swelling, Tender Psychiatric: Normal Mood Description: Calm Affect: Normal Speech Pattern: Unclear, Delayed - Laboratory and Diagnostics Result Diagrams: 01/15/19 06:03 01/15/19 06:03 Labs: 01/07/19 12:10 Sputum - Expectorated Sputum Sputum Culture - Final Escherichia Coli 01/07/19 12:10 Sputum - Expectorated Sputum - Final Laboratory WBC 10.5 X10^3/uL (3.6-10.0) H 01/15/19 06:03 RBC 3.99 X10^6/uL (4.7-6.0) L 01/15/19 06:03 Hgb 11.2 g/dL (13.5-18.0) L 01/15/19 06:03 Hct 33.9 % (42.0-54.0) L 01/15/19 06:03 MCV 84.9 fL (80.0-100.0) 01/15/19 06:03 MCH 28.1 pg (27.0-34.0) 01/15/19 06:03 MCHC 33.1 g/dL (33.0-35.0) 01/15/19 06:03 RDW 16.6 % (11.6-16.5) H 01/15/19 06:03 Plt Count 127 X10^3/uL (150.0-450.0) L 01/15/19 06:03 Plt Count Comment Decreased (ADEQUATE) 01/15/19 06:03 MPV 8.2 fL (7.4-11.0) 01/15/19 06:03 Neut % (Auto) 92.7 % (42.0-75.0) H 01/15/19 06:03 Lymph % (Auto) 2.6 % (21.0-51.0) L 01/15/19 06:03 [place] % (Auto) 4.2 % (0.0-13.0) 01/15/19 06:03 Eos % (Auto) 0.0 % (0.9-2.9) L 01/15/19 06:03 Baso % (Auto) 0.5 % (0.2-1.0) 01/15/19 06:03 Neut # (Auto) 9.7 x10^3/uL (2.2-4.8) H 01/15/19 06:03 Lymph # (Auto) 0.3 X10^3/uL (1.3-2.9) L 01/15/19 06:03 [place] # (Auto) 0.4 x10^3/uL (0.3-0.8) 01/15/19 06:03 Eos # (Auto) 0.0 x10^3/uL (0.0-0.2) 01/15/19 06:03 Baso # (Auto) 0.1 X10^3/uL (0.0-0.1) 01/15/19 06:03 Absolute Nucleated RBC 0.0 /100WBC 01/15/19 06:03 Total Counted 100 01/15/19 06:03 Neutrophils % (Manual) 91 % (39-76) H 01/15/19 06:03 Band Neutrophils % 2 % (0-10) 01/15/19 06:03 Lymphocytes % (Manual) 5 % (13-43) L 01/15/19 06:03 Monocytes % (Manual) 2 % (4-9) L 01/15/19 06:03 Eosinophils % (Manual) 2 % (0-6) 01/14/19 06:00 Basophils % (Manual) 1 % (0-1) 01/11/19 06:35 Plt Morphology Comment Normal (NORMAL) 01/15/19 06:03 RBC Morphology Normal (NORMAL) 01/15/19 06:03 Hypochromasia Slight A 01/12/19 05:04 Sample Site Rr 01/15/19 05:17 ABG pH 7.360 (7.35-7.45) 01/15/19 05:17 ABG pCO2 75.0 mmHg (35.0-45.0) H* 01/15/19 05:17 ABG pO2 79.0 mmHg (80.0-100.0) L 01/15/19 05:17 ABG HCO3 42.4 mmol/L (22-26) H* 01/15/19 05:17 ABG O2 Saturation 95.0 % (90-100) 01/15/19 05:17 ABG Base Excess 13.7 mmol/L (-2.0-2.0) H 01/15/19 05:17 [place] Test Pos 01/15/19 05:17 A-a Gradient 540.0 mmHg 01/15/19 05:17 FiO2 100.0 01/15/19 05:17 Blood Gas Comments Brittni well ae 01/15/19 05:17 Sodium 139 mmol/L (136-145) 01/15/19 06:03 Corrected Sodium 141 mmol/L (136-145) 01/15/19 06:03 Potassium 4.4 mmol/L (3.5-5.1) 01/15/19 06:03 Chloride 98 mmol/L (98-107) 01/15/19 06:03 Carbon Dioxide 32.1 mmol/L (21-32) H 01/15/19 06:03 BUN 28 mg/dL (7-18) H 01/15/19 06:03 Creatinine 0.68 mg/dL (0.70-1.30) L 01/15/19 06:03 Est GFR (MDRD) Af Amer > 60 (>60) 01/15/19 06:03 Est GFR (MDRD) Non-Af > 60 (>60) 01/15/19 06:03 Glucose 196 mg/dL (65-99) H 01/15/19 06:03 Calcium 9.9 mg/dL (8.5-10.1) 01/15/19 06:03 Corrected Calcium 10.7 mg/dL (8.5-10.1) H 01/15/19 06:03 Magnesium 1.9 mg/dL (1.7-2.9) 01/08/19 04:03 Total Bilirubin 0.50 mg/dL (0.2-1.0) 01/15/19 06:03 AST 17 Units/L (15-37) 01/15/19 06:03 ALT 8 Units/L (12-78) L 01/15/19 06:03 Alkaline Phosphatase 99 Units/L (46-116) 01/15/19 06:03 Creatine Kinase 20 Units/L (39-308) L 01/07/19 03:05 CK-MB (CK-2) 3.2 ng/mL (0-4.0) 01/07/19 03:05 CK/CKMB % Calc 16.0 % (<4) 01/07/19 03:05 Troponin I < 0.02 ng/mL (0-1.5) 01/07/19 03:05 Total Protein 6.9 g/dL (6.4-8.2) 01/15/19 06:03 Albumin 3.0 g/dL (3.4-5.0) L 01/15/19 06:03 Globulin 3.9 g/dL (2.5-4.5) 01/15/19 06:03 Albumin/Globulin Ratio 0.8 Ratio (1.1-2.1) L 01/15/19 06:03 Digoxin < 0.20 ng/mL (0.9-2) L 01/07/19 03:05 - Plan (1) Bronchopneumonia Status: Acute Plan: BIPAP, IV FORTAZ, SOLU-MEDROL 80MG IV Q8H, IVÁN-DUR 300MG PO BID, RESPIRATORY TX, SUPPLEMENTAL OXYGEN, CONTINUE TO MONITOR (2) Lower extremity edema Status: Acute Plan: CONTINUE HOME MEDS, CONTINUE TO MONITOR (3) Shortness of breath Status: Acute (4) COPD (chronic obstructive pulmonary disease) Status: Chronic Qualifiers: COPD type: COPD with acute lower respiratory infection Qualified Code(s): J44.0 - Chronic obstructive pulmonary disease with acute lower respiratory i nfection (5) Pulmonary fibrosis Status: Chronic (6) Diabetes mellitus Status: Chronic Qualifiers: Diabetes mellitus type: type 2 Diabetes mellitus long term care social worker insulin use: with fpc use Diabetes mellitus complication status: with hyperglycemia Qualified Code(s): E11.65 - Type 2 diabetes mellitus with hyperglycemia; Z79.4 - group home (current) use of insulin
[2019-01-15] MEDS: SNACK - Diabetic Appropriate PO SCH (21:02)
[2019-01-15] MEDS: DESYREL PO SCH (21:05)
[2019-01-15] MEDS: LANTUS SC SCH (21:07)
[2019-01-15] MEDS: LIPITOR TAB 40 MG PO SCH (21:08)
[2019-01-16] MEDS: FORTAZ or TAZICEF VIAL INJ IVP SCH ×3 (05:04→21:09)
[2019-01-16] MEDS: SOLU-Medrol 40 MG VIAL IVP SCH ×3 (05:05→21:05)
[2019-01-16] MEDS: NEURONTIN CAP 400 MG PO SCH ×3 (05:05→21:17)
[2019-01-16] MEDS: HumuLIN R SUBCUT PRN ×2 (05:39→10:46)
[2019-01-16] MEDS: ATIVAN INJ 2 MG VIAL IVP PRN (05:46)
--- NOTE | 2019-01-16 06:00 | RAD ---
Chest radiograph, single view History: Shortness of breath Comparison: 01/15/2019. Findings: The heart remains enlarged with diffuse severe chronic interstitial lung disease, unchanged from prior study. There is no new consolidation. No evidence of pneumothorax. Conclusion: Stable examination. Reported By:
[2019-01-16 06:04] LABS: ABG BASE EXCESS 16.3 mmol/L (-2.0-2.0)
[2019-01-16 06:05] LABS: ABG HCO3 43.5 mmol/L (22-26)
[2019-01-16 06:06] LABS: ABG ALLEN TEST POS
[2019-01-16] MEDS: XOPENEX 1.25 MG/3 ML NEBULE NEB SCH ×3 (06:09→20:37)
[2019-01-16 06:27] LABS: BASOPHILS # (AUTO) 0.1 X10^3/uL (0.0-0.1); BASOPHILS % (AUTO) 0.6 % (0.2-1.0); HEMOGLOBIN 11.2 g/dL (13.5-18.0); LYMPHOCYTES # (AUTO) 0.2 X10^3/uL (1.3-2.9); LYMPHOCYTES % (AUTO) 2.3 % (21.0-51.0); MEAN CORPUSCULAR HEMOGLOBIN 27.6 pg (27.0-34.0); MEAN CORPUSCULAR HGB CONC 33.1 g/dL (33.0-35.0); MEAN CORPUSCULAR VOLUME 83.7 fL (80.0-100.0); MEAN PLATELET VOLUME 7.8 fL (7.4-11.0); MONOCYTES # (AUTO) 0.6 x10^3/uL (0.3-0.8); MONOCYTES % (AUTO) 5.3 % (0.0-13.0); NEUTROPHILS # (AUTO) 9.9 x10^3/uL (2.2-4.8); NEUTROPHILS % (AUTO) 91.8 % (42.0-75.0); PLATELET COUNT 144 X10^3/uL (150.0-450.0); RED BLOOD COUNT 4.06 X10^6/uL (4.7-6.0); RED CELL DISTRIBUTION WIDTH 16.3 % (11.6-16.5); WHITE BLOOD COUNT 10.8 X10^3/uL (3.6-10.0)
[2019-01-16] MEDS: MORPHINE SULFATE INJ 2 MG INJ IVP PRN ×4 (06:35→21:22)
[2019-01-16 06:39] LABS: ALANINE AMINOTRANSFERASE 9 Units/L (12-78); ALBUMIN 3.2 g/dL (3.4-5.0); ALKALINE PHOSPHATASE 131 Units/L (46-116); ASPARTATE AMINO TRANSFERASE 12 Units/L (15-37); BLOOD UREA NITROGEN 36 mg/dL (7-18); CALCIUM 9.8 mg/dL (8.5-10.1); CARBON DIOXIDE 34.4 mmol/L (21-32); CHLORIDE 99 mmol/L (98-107); COR CA(FOR HYPOALB) 10.4 mg/dL (8.5-10.1); COR NA(FOR HYPERGLY) 145 mmol/L (136-145); SODIUM 142 mmol/L (136-145); TOTAL PROTEIN 6.8 g/dL (6.4-8.2); eGFR NON BLACK RACES > 60 (>60)
[2019-01-16] MEDS: LOVENOX INJ 40 MG SYR SC SCH (09:08)
[2019-01-16] MEDS: ALBUMIN HUMAN 25%- 100 ML 100 ML IV SCH (09:09)
[2019-01-16] MEDS: COZAAR PO SCH (09:10)
[2019-01-16] MEDS: NEOSPORIN OINT TOP SCH ×2 (09:11→21:15)
[2019-01-16] MEDS: LANOXIN PO SCH (09:11)
[2019-01-16] MEDS: LOPRESSOR TAB 50 MG PO SCH ×2 (09:11→21:15)
[2019-01-16] MEDS: PULMICORT NEB TX 0.5 MG NEB SCH ×2 (09:25→20:37)
[2019-01-16] MEDS: ASPIRIN EC 81 MG PO SCH (12:22)
[2019-01-16] MEDS: ACTOS PO SCH (12:22)
[2019-01-16] MEDS: VITAMIN D3 PO SCH ×2 (12:23→21:16)
[2019-01-16] MEDS: VITAMIN B-12 PO SCH (12:23)
[2019-01-16] MEDS: FLONASE NASAL SPRAY ENOSTRIL SCH (12:24)
[2019-01-16] MEDS: THEO-DUR TAB 300 MG PO SCH ×2 (12:24→21:16)
[2019-01-16] MEDS: AZULFIDINE PO SCH ×2 (12:24→21:12)
[2019-01-16] MEDS: SENOKOT PO SCH ×2 (12:25→21:16)
[2019-01-16] MEDS: OSCAL+D or CALTRATE+D PO SCH (12:25)
[2019-01-16] MEDS: PROTONIX TAB 40 MG PO SCH (12:26)
[2019-01-16] MEDS: KLONOPIN TAB 1 MG PO SCH ×2 (14:45→21:13)
--- NOTE | 2019-01-16 19:20 | PCM.PROG ---
Progress Note - Progress Note for Day of Date of Exam: 01/15/19 - Subjective Subjective: IS BEING TREATED FOR LOWER EXTREMITY SWELLING, BRONCHOPNEUMONIA, AND SHORTNESS OF BREATH. HE IS CURRENTLY IN THE LATER STAGES OF PULMONARY FIBROSIS. TODAY, HE IS ALERT AND ORIENTED, LYING IN BED ON MORNING ROUNDS. HE CONTINUES WITH MODERATE SHORTNESS OF BREATH TODAY. OXYGEN SATURATIONS CONTINUE TO DROP WHEN THE BIPAP IS REMOVED. HIS VITALS THIS MORNING ARE: 97.9-100-24-96% BIPAP,158/78. LABS WERE OBTAINED. ABNORMAL LAB VALUES INCLUDE THE FOLLOWING: WBC 10.5, RBC 3.99, HGB 11.2, HCT 33.9, PLT COUNT 127, CARBON DIOXIDE 32.1, BUN 28, CREATININE 0.68, GLUCOSE 196, ALT 8, ALBUMIN 3.0. SPUTUM CULTURE REVEALED GROWTH OF E.COLI. A CHEST XRAY WAS OBTAINED AND REVEALED: No significant change from the prior examination. HE IS CURRENTLY RECEIVING IV FORTAZ, SOLU-MEDROL 80MG IV Q8H, ALBUMIN 25% IV DAILY, IVÁN-DUR, RESPIRATORY TREATMENTS, SUPPLEMENTAL OXYGEN, ATIVAN 1MG IV Q4H PRN AGITATION ,AND HIS REGULAR HOME MEDICATIONS. WE WILL CONTINUE WITH CURRENT PLAN OF CARE TODAY. OTHERWISE, WE WILL FOLLOW UP WITH AM LABS AND CHEST XRAY AND CONTINUE TO MONITOR. - Past Medical Family Social History Past Med/Fam/Surg Hx: No changes since H&P Allergies: Allergies No Known Drug Allergies Allergy (Verified 04/09/18 16:19) - Review of Systems ROS: No change since H&P - Vital Signs and I&O's Vital Signs: Temperature 96.5 F Pulse Rate [Right Brachial] 82 Pulse Rate 74 Respiratory Rate 20 Blood Pressure [Right Arm] 188/89 Blood Pressure [Left Arm] 140/64 Blood Pressure 146/70 O2 Sat by Pulse Oximetry 94 Intake and Output: Intake & Output 01/14/19 01/15/19 01/16/19 01/17/19 11:59 11:59 11:59 11:59 Intake Total 1690 / 1690 2770 / 2770 760 / 760 410 / 410 Output Total 2775 / 2775 1350 / 1350 1700 / 1700 650 / 650 Balance -1085 / -1085 1420 / 1420 -940 / -940 -240 / -240 - Physical Exam Oriented: Normal Eyes: Normal Ear: Normal Nose: Normal Throat: Normal Respiratory: Generalized, Diminished, Wheezes Cardiovascular: Normal : Normal Auscultation: Bowel Sounds: Normal Tenderness: Normal, Mild Skin: Normal Musculoskeletal: Right, Left, Leg, Swelling, Tender Psychiatric: Normal Mood Description: Calm Affect: Normal Speech Pattern: Appropriate - Laboratory and Diagnostics Result Diagrams: 01/16/19 06:13 01/16/19 06:13 Labs: 01/07/19 12:10 Sputum - Expectorated Sputum Sputum Culture - Final Escherichia Coli 01/07/19 12:10 Sputum - Expectorated Sputum - Final Laboratory WBC 10.8 X10^3/uL (3.6-10.0) H 01/16/19 06:13 RBC 4.06 X10^6/uL (4.7-6.0) L 01/16/19 06:13 Hgb 11.2 g/dL (13.5-18.0) L 01/16/19 06:13 Hct 34.0 % (42.0-54.0) L 01/16/19 06:13 MCV 83.7 fL (80.0-100.0) 01/16/19 06:13 MCH 27.6 pg (27.0-34.0) 01/16/19 06:13 MCHC 33.1 g/dL (33.0-35.0) 01/16/19 06:13 RDW 16.3 % (11.6-16.5) 01/16/19 06:13 Plt Count 144 X10^3/uL (150.0-450.0) L 01/16/19 06:13 Plt Count Comment Decreased (ADEQUATE) 01/15/19 06:03 MPV 7.8 fL (7.4-11.0) 01/16/19 06:13 Neut % (Auto) 91.8 % (42.0-75.0) H 01/16/19 06:13 Lymph % (Auto) 2.3 % (21.0-51.0) L 01/16/19 06:13 [place] % (Auto) 5.3 % (0.0-13.0) 01/16/19 06:13 Eos % (Auto) 0.0 % (0.9-2.9) L 01/16/19 06:13 Baso % (Auto) 0.6 % (0.2-1.0) 01/16/19 06:13 Neut # (Auto) 9.9 x10^3/uL (2.2-4.8) H 01/16/19 06:13 Lymph # (Auto) 0.2 X10^3/uL (1.3-2.9) L 01/16/19 06:13 [place] # (Auto) 0.6 x10^3/uL (0.3-0.8) 01/16/19 06:13 Eos # (Auto) 0.0 x10^3/uL (0.0-0.2) 01/16/19 06:13 Baso # (Auto) 0.1 X10^3/uL (0.0-0.1) 01/16/19 06:13 Absolute Nucleated RBC 0.0 /100WBC 01/16/19 06:13 Total Counted 100 01/15/19 06:03 Neutrophils % (Manual) 91 % (39-76) H 01/15/19 06:03 Band Neutrophils % 2 % (0-10) 01/15/19 06:03 Lymphocytes % (Manual) 5 % (13-43) L 01/15/19 06:03 Monocytes % (Manual) 2 % (4-9) L 01/15/19 06:03 Eosinophils % (Manual) 2 % (0-6) 01/14/19 06:00 Basophils % (Manual) 1 % (0-1) 01/11/19 06:35 Plt Morphology Comment Normal (NORMAL) 01/15/19 06:03 RBC Morphology Normal (NORMAL) 01/15/19 06:03 Hypochromasia Slight A 01/12/19 05:04 Sample Site Rrad 01/16/19 05:59 ABG pH 7.440 (7.35-7.45) 01/16/19 05:59 ABG pCO2 64.0 mmHg (35.0-45.0) H* 01/16/19 05:59 ABG pO2 66.0 mmHg (80.0-100.0) L 01/16/19 05:59 ABG HCO3 43.5 mmol/L (22-26) H* 01/16/19 05:59 ABG O2 Saturation 93.0 % (90-100) 01/16/19 05:59 ABG Base Excess 16.3 mmol/L (-2.0-2.0) H 01/16/19 05:59 [place] Test Pos 01/16/19 05:59 A-a Gradient 567.0 mmHg 01/16/19 05:59 FiO2 100.0 01/16/19 05:59 Blood Gas Comments Brittni abg well-mtf 01/16/19 05:59 Sodium 142 mmol/L (136-145) 01/16/19 06:13 Corrected Sodium 145 mmol/L (136-145) 01/16/19 06:13 Potassium 4.1 mmol/L (3.5-5.1) 01/16/19 06:13 Chloride 99 mmol/L (98-107) 01/16/19 06:13 Carbon Dioxide 34.4 mmol/L (21-32) H 01/16/19 06:13 BUN 36 mg/dL (7-18) H 01/16/19 06:13 Creatinine 0.70 mg/dL (0.70-1.30) 01/16/19 06:13 Est GFR (MDRD) Af Amer > 60 (>60) 01/16/19 06:13 Est GFR (MDRD) Non-Af > 60 (>60) 01/16/19 06:13 Glucose 235 mg/dL (65-99) H 01/16/19 06:13 Calcium 9.8 mg/dL (8.5-10.1) 01/16/19 06:13 Corrected Calcium 10.4 mg/dL (8.5-10.1) H 01/16/19 06:13 Magnesium 1.9 mg/dL (1.7-2.9) 01/08/19 04:03 Total Bilirubin 0.50 mg/dL (0.2-1.0) 01/16/19 06:13 AST 12 Units/L (15-37) L 01/16/19 06:13 ALT 9 Units/L (12-78) L 01/16/19 06:13 Alkaline Phosphatase 131 Units/L (46-116) H 01/16/19 06:13 Creatine Kinase 20 Units/L (39-308) L 01/07/19 03:05 CK-MB (CK-2) 3.2 ng/mL (0-4.0) 01/07/19 03:05 CK/CKMB % Calc 16.0 % (<4) 01/07/19 03:05 Troponin I < 0.02 ng/mL (0-1.5) 01/07/19 03:05 Total Protein 6.8 g/dL (6.4-8.2) 01/16/19 06:13 Albumin 3.2 g/dL (3.4-5.0) L 01/16/19 06:13 Globulin 3.6 g/dL (2.5-4.5) 01/16/19 06:13 Albumin/Globulin Ratio 0.9 Ratio (1.1-2.1) L 01/16/19 06:13 Digoxin < 0.20 ng/mL (0.9-2) L 01/07/19 03:05 - Plan (1) Bronchopneumonia Status: Acute Plan: BIPAP, IV FORTAZ, SOLU-MEDROL 80MG IV Q8H, IVÁN-DUR 300MG PO BID, RESPIRATORY TX, SUPPLEMENTAL OXYGEN, CONTINUE TO MONITOR (2) Lower extremity edema Status: Acute Plan: CONTINUE HOME MEDS, CONTINUE TO MONITOR (3) Shortness of breath Status: Acute (4) COPD (chronic obstructive pulmonary disease) Status: Chronic Qualifiers: COPD type: COPD with acute lower respiratory infection Qualified Code(s): J44.0 - Chronic obstructive pulmonary disease with acute lower respiratory infection (5) Pulmonary fibrosis Status: Chronic (6) Diabetes mellitus Status: Chronic Qualifiers: Diabetes mellitus type: type 2 Diabetes mellitus intermediate teacher insulin use: with intermediate teacher use Diabetes mellitus complication status: with hyperglycemia Qualified Code(s): E11.65 - Type 2 diabetes mellitus with hyperglycemia; Z79.4 - termite treater helper (current) use of insulin
[2019-01-16] MEDS: NS 1000 ML 1,000 ML IV SCH ×3 (21:01→23:01)
[2019-01-16] MEDS: SNACK - Diabetic Appropriate PO SCH (21:12)
[2019-01-16] MEDS: LANTUS SC SCH (21:13)
[2019-01-16] MEDS: DESYREL PO SCH (21:13)
[2019-01-16] MEDS: LIPITOR TAB 40 MG PO SCH (21:15)
[2019-01-17] MEDS: MORPHINE SULFATE INJ 2 MG INJ IVP PRN (03:48)
[2019-01-17] MEDS: NS 1000 ML 1,000 ML IV SCH (04:15)
[2019-01-17 05:13] LABS: BASOPHILS % (AUTO) 0.5 % (0.2-1.0); HEMATOCRIT 33.8 % (42.0-54.0); HEMOGLOBIN 11.2 g/dL (13.5-18.0); LYMPHOCYTES # (AUTO) 0.2 X10^3/uL (1.3-2.9); LYMPHOCYTES % (AUTO) 1.9 % (21.0-51.0); MEAN CORPUSCULAR HEMOGLOBIN 27.8 pg (27.0-34.0); MEAN CORPUSCULAR HGB CONC 33.2 g/dL (33.0-35.0); MEAN CORPUSCULAR VOLUME 83.6 fL (80.0-100.0); MONOCYTES # (AUTO) 0.5 x10^3/uL (0.3-0.8); MONOCYTES % (AUTO) 5.3 % (0.0-13.0); NEUTROPHILS # (AUTO) 8.9 x10^3/uL (2.2-4.8); NEUTROPHILS % (AUTO) 92.3 % (42.0-75.0); PLATELET COUNT 146 X10^3/uL (150.0-450.0); RED BLOOD COUNT 4.04 X10^6/uL (4.7-6.0); RED CELL DISTRIBUTION WIDTH 16.3 % (11.6-16.5); WHITE BLOOD COUNT 9.7 X10^3/uL (3.6-10.0)
[2019-01-17 05:21] LABS: ALANINE AMINOTRANSFERASE 7 Units/L (12-78); ALBUMIN 3.3 g/dL (3.4-5.0); ALKALINE PHOSPHATASE 125 Units/L (46-116); ASPARTATE AMINO TRANSFERASE 10 Units/L (15-37); BLOOD UREA NITROGEN 40 mg/dL (7-18); CALCIUM 9.8 mg/dL (8.5-10.1); CHLORIDE 101 mmol/L (98-107); COR CA(FOR HYPOALB) 10.4 mg/dL (8.5-10.1); COR NA(FOR HYPERGLY) 147 mmol/L (136-145); CREATININE 0.69 mg/dL (0.70-1.30); SODIUM 144 mmol/L (136-145); TOTAL PROTEIN 6.7 g/dL (6.4-8.2); eGFR NON BLACK RACES > 60 (>60)
[2019-01-17 05:23] LABS: ABG BASE EXCESS 17.4 mmol/L (-2.0-2.0)
[2019-01-17 05:24] LABS: ABG ALLEN TEST POS; ABG HCO3 45.4 mmol/L (22-26)
[2019-01-17] MEDS: XOPENEX 1.25 MG/3 ML NEBULE NEB SCH (05:30)
[2019-01-17] MEDS: SOLU-Medrol 40 MG VIAL IVP SCH (06:00)
[2019-01-17] MEDS: NEURONTIN CAP 400 MG PO SCH (06:00)
[2019-01-17] MEDS: FORTAZ or TAZICEF VIAL INJ IVP SCH (06:00)
[2019-01-17 06:01] LABS: BAND NEUTROPHILS % 4 % (0-10); PLATELET MORPHOLOGY COMMENT NORMAL (NORMAL)
--- NOTE | 2019-01-17 08:02 | RAD ---
HISTORY: Shortness of breath Study: Single-view chest Comparison: 01/16/2019 Findings: The trachea is midline. The cardiac silhouette is enlarged with a tortuous thoracic aorta but stable. Diffuse airspace opacities throughout the right and left chest are again noted. The findings are essentially stable compared to prior examination. Chronic interstitial lung disease is noted when compared to prior examinations and essentially stable. The bony thorax is unremarkable. IMPRESSION: Chronic interstitial lung changes throughout the right and left chest with multifocal airspace opacities which underlying multifocal pneumonia would be suspected. The findings are essentially stable compared to prior examination. Reported By:
[2019-01-17] MEDS ORDERED: VERSED 100 MG in NS 100 ML IV 80 ML IV PRN (08:27)
[2019-01-17] MEDS ORDERED: DURAGESIC 100 mcg/HR PATCH TD SCH (09:00)
[2019-01-17 10:39] VITALS: BP 209/95
[2019-01-17] MEDS: ALBUMIN HUMAN 25%- 100 ML 100 ML IV SCH (13:46)
[2019-01-17] MEDS: ACTOS PO SCH (13:46)
[2019-01-17] MEDS: ASPIRIN EC 81 MG PO SCH (13:46)
[2019-01-17] MEDS: COZAAR PO SCH (13:47)
[2019-01-17] MEDS: AZULFIDINE PO SCH (13:47)
[2019-01-17] MEDS: LANOXIN PO SCH (13:48)
[2019-01-17] MEDS: KLONOPIN TAB 1 MG PO SCH (13:48)
[2019-01-17] MEDS: FLONASE NASAL SPRAY ENOSTRIL SCH (13:48)
[2019-01-17] MEDS: LOPRESSOR TAB 50 MG PO SCH (13:49)
[2019-01-17] MEDS: NEOSPORIN OINT TOP SCH (13:49)
[2019-01-17] MEDS: LOVENOX INJ 40 MG SYR SC SCH (13:49)
[2019-01-17] MEDS: OSCAL+D or CALTRATE+D PO SCH (13:50)
[2019-01-17] MEDS: PROTONIX TAB 40 MG PO SCH (13:50)
[2019-01-17] MEDS: VITAMIN D3 PO SCH (13:52)
[2019-01-17] MEDS: SENOKOT PO SCH (13:52)
[2019-01-17] MEDS: VITAMIN B-12 PO SCH (13:52)
[2019-01-17] MEDS: THEO-DUR TAB 300 MG PO SCH (13:52)
--- NOTE | 2019-01-17 17:28 | PCM.PROG ---
Progress Note - Progress Note for Day of Date of Exam: 01/16/19 - Subjective Subjective: IS BEING TREATED FOR LOWER EXTREMITY SWELLING, BRONCHOPNEUMONIA, AND SHORTNESS OF BREATH. HE IS CURRENTLY IN THE LATER STAGES OF PULMONARY FIBROSIS. TODAY, HE IS ALERT AND ORIENTED, LYING IN BED ON MORNING ROUNDS. HE CONTINUES WITH MODERATE SHORTNESS OF BREATH TODAY. OXYGEN SATURATIONS CONTINUE TO DROP WHEN THE BIPAP IS REMOVED. HIS VITALS THIS MORNING ARE: 97.8-104-20-91%-179/86. LABS WERE OBTAINED. ABNORMAL LAB VALUES INCLUDE THE FOLLOWING: WBC 10.8, RBC 4.06, HGB 11.2, HCT 34.0, PLT COUNT 144, CARBON DIOXIDE 34.4, BUN 36, GLUCOSE 235, AST 12, ALT 9, ALK PHOS 131, ALBUMIN 3.2. SPUTUM CULTURE REVEALED GROWTH OF E.COLI. A CHEST XRAY WAS OBTAINED AND REVEALED: The heart remains enlarged with diffuse severe chronic interstitial lung disease, unchanged from prior study. There is no new consolidation. No evidence of pneumothorax. HE IS CURRENTLY RECEIVING IV FORTAZ, SOLU-MEDROL 80MG IV Q8H, ALBUMIN 25% IV DAILY, IVÁN-DUR, RESPIRATORY TREATMENTS, SUPPLEMENTAL OXYGEN, ATIVAN 1MG IV Q4H PRN AGITATION ,AND HIS REGULAR HOME MEDICATIONS. WE WILL CONTINUE WITH CURRENT PLAN OF CARE TODAY AND ADD [place] 25MCG PATCH. OTHERWISE, WE WILL FOLLOW UP WITH AM LABS AND CHEST XRAY AND CONTINUE TO MONITOR. - Past Medical Family Social History Past Med/Fam/Surg Hx: No changes since H&P Allergies: Allergies No Known Drug Allergies Allergy (Verified 04/09/18 16:19) - Review of Systems ROS: No change since H&P - Vital Signs and I&O's Vital Signs: Temperature 98.0 F Pulse Rate [Right Brachial] 106 Pulse Rate 115 Respiratory Rate 32 Blood Pressure [Right Arm] 209/95 Blood Pressure [Left Arm] 140/64 Blood Pressure 146/70 O2 Sat by Pulse Oximetry 88 Intake and Output: Intake & Output 01/15/19 01/16/19 01/17/19 01/18/19 11:59 11:59 11:59 11:59 Intake Total 2770 / 2770 760 / 760 610 / 610 Output Total 1350 / 1350 1700 / 1700 1650 / 1650 Balance 1420 / 1420 -940 / -940 -1040 / -1040 - Physical Exam Oriented: Normal Eyes: Normal Ear: Normal Nose: Normal Throat: Normal Respiratory: Generalized, Diminished, Wheezes Cardiovascular: Normal : Normal Auscultation: Bowel Sounds: Normal Tenderness: Normal, Mild Skin: Normal Musculoskeletal: Right, Left, Leg, Swelling, Tender Psychiatric: Normal Mood Description: Calm Affect: Normal Speech Pattern: Appropriate - Laboratory and Diagnostics Result Diagrams: 01/17/19 03:57 01/17/19 03:57 Labs: 01/07/19 12:10 Sputum - Expectorated Sputum Sputum Culture - Final Escherichia Coli 01/07/19 12:10 Sputum - Expectorated Sputum - Final Laboratory WBC 9.7 X10^3/uL (3.6-10.0) 01/17/19 03:57 RBC 4.04 X10^6/uL (4.7-6.0) L 01/17/19 03:57 Hgb 11.2 g/dL (13.5-18.0) L 01/17/19 03:57 Hct 33.8 % (42.0-54.0) L 01/17/19 03:57 MCV 83.6 fL (80.0-100.0) 01/17/19 03:57 MCH 27.8 pg (27.0-34.0) 01/17/19 03:57 MCHC 33.2 g/dL (33.0-35.0) 01/17/19 03:57 RDW 16.3 % (11.6-16.5) 01/17/19 03:57 Plt Count 146 X10^3/uL (150.0-450.0) L 01/17/19 03:57 Plt Count Comment Adequate (ADEQUATE) 01/17/19 03:57 MPV 8.0 fL (7.4-11.0) 01/17/19 03:57 Neut % (Auto) 92.3 % (42.0-75.0) H 01/17/19 03:57 Lymph % (Auto) 1.9 % (21.0-51.0) L 01/17/19 03:57 [place] % (Auto) 5.3 % (0.0-13.0) 01/17/19 03:57 Eos % (Auto) 0.0 % (0.9-2.9) L 01/17/19 03:57 Baso % (Auto) 0.5 % (0.2-1.0) 01/17/19 03:57 Neut # (Auto) 8.9 x10^3/uL (2.2-4.8) H 01/17/19 03:57 Lymph # (Auto) 0.2 X10^3/uL (1.3-2.9) L 01/17/19 03:57 [place] # (Auto) 0.5 x10^3/uL (0.3-0.8) 01/17/19 03:57 Eos # (Auto) 0.0 x10^3/uL (0.0-0.2) 01/17/19 03:57 Baso # (Auto) 0.0 X10^3/uL (0.0-0.1) 01/17/19 03:57 Absolute Nucleated RBC 0.0 /100WBC 01/17/19 03:57 Total Counted 100 01/17/19 03:57 Neutrophils % (Manual) 84 % (39-76) H 01/17/19 03:57 Band Neutrophils % 4 % (0-10) 01/17/19 03:57 Lymphocytes % (Manual) 4 % (13-43) L 01/17/19 03:57 Monocytes % (Manual) 8 % (4-9) 01/17/19 03:57 Eosinophils % (Manual) 2 % (0-6) 01/14/19 06:00 Basophils % (Manual) 1 % (0-1) 01/11/19 06:35 Plt Morphology Comment Normal (NORMAL) 01/17/19 03:57 RBC Morphology Normal (NORMAL) 01/17/19 03:57 Hypochromasia Slight A 01/12/19 05:04 Sample Site Rra 01/17/19 05:20 ABG pH 7.420 (7.35-7.45) 01/17/19 05:20 ABG pCO2 70.0 mmHg (35.0-45.0) H* 01/17/19 05:20 ABG pO2 60.0 mmHg (80.0-100.0) L 01/17/19 05:20 ABG HCO3 45.4 mmol/L (22-26) H* 01/17/19 05:20 ABG O2 Saturation 91.0 % (90-100) 01/17/19 05:20 ABG Base Excess 17.4 mmol/L (-2.0-2.0) H 01/17/19 05:20 [place] Test Pos 01/17/19 05:20 A-a Gradient 566.0 mmHg 01/17/19 05:20 FiO2 100.0 01/17/19 05:20 Blood Gas Comments Pt toll well eb 01/17/19 05:20 Sodium 144 mmol/L (136-145) 01/17/19 03:57 Corrected Sodium 147 mmol/L (136-145) H 01/17/19 03:57 Potassium 4.4 mmol/L (3.5-5.1) 01/17/19 03:57 Chloride 101 mmol/L (98-107) 01/17/19 03:57 Carbon Dioxide 37.0 mmol/L (21-32) H 01/17/19 03:57 BUN 40 mg/dL (7-18) H 01/17/19 03:57 Creatinine 0.69 mg/dL (0.70-1.30) L 01/17/19 03:57 Est GFR (MDRD) Af Amer > 60 (>60) 01/17/19 03:57 Est GFR (MDRD) Non-Af > 60 (>60) 01/17/19 03:57 Glucose 241 mg/dL (65-99) H 01/17/19 03:57 Calcium 9.8 mg/dL (8.5-10.1) 01/17/19 03:57 Corrected Calcium 10.4 mg/dL (8.5-10.1) H 01/17/19 03:57 Magnesium 1.9 mg/dL (1.7-2.9) 01/08/19 04:03 Total Bilirubin 0.50 mg/dL (0.2-1.0) 01/17/19 03:57 AST 10 Units/L (15-37) L 01/17/19 03:57 ALT 7 Units/L (12-78) L 01/17/19 03:57 Alkaline Phosphatase 125 Units/L (46-116) H 01/17/19 03:57 Creatine Kinase 20 Units/L (39-308) L 01/07/19 03:05 CK-MB (CK-2) 3.2 ng/mL (0-4.0) 01/07/19 03:05 CK/CKMB % Calc 16.0 % (<4) 01/07/19 03:05 Troponin I < 0.02 ng/mL (0-1.5) 01/07/19 03:05 Total Protein 6.7 g/dL (6.4-8.2) 01/17/19 03:57 Albumin 3.3 g/dL (3.4-5.0) L 01/17/19 03:57 Globulin 3.4 g/dL (2.5-4.5) 01/17/19 03:57 Albumin/Globulin Ratio 1.0 Ratio (1.1-2.1) L 01/17/19 03:57 Digoxin < 0.20 ng/mL (0.9-2) L 01/07/19 03:05 - Plan (1) Bronchopneumonia Status: Acute Plan: BIPAP, IV FORTAZ, SOLU-MEDROL 80MG IV Q8H, IVÁN-DUR 300MG PO BID, RESPIRATORY TX, SUPPLEMENTAL OXYGEN, CONTINUE TO MONITOR (2) Lower extremity edema Status: Acute Plan: CONTINUE HOME MEDS, CONTINUE TO MONITOR (3) Shortness of breath Status: Acute (4) COPD (chronic obstructive pulmonary disease) Status: Chronic Qualifiers: COPD type: COPD with acute lower respiratory infection Qualified Code(s): J44.0 - Chronic obstructive pulmonary disease with acute lower respiratory infection (5) Pulmonary fibrosis Status: Chronic (6) Diabetes mellitus Status: Chronic Qualifiers: Diabetes mellitus type: type 2 Diabetes mellitus correction insulin use: with correction use Diabetes mellitus complication status: with hyperglycemia Qualified Code(s): E11.65 - Type 2 diabetes mellitus with hyperglycemia; Z79.4 - longterm (current) use of insulin
== END 2019-01-17 09:20 | disposition expired | DRG 177 ==
LOC: MED/SURG
PROVIDERS: ADMIT Internal Medicine; ATTEND Internal Medicine
DX: R60.0 Localized edema; R26.89 Other abnormalities of gait and mobility; I10 Essential (primary) hypertension; Z66 Do not resuscitate; Z79.4 Long term (current) use of insulin; E11.65 Type 2 diabetes mellitus with hyperglycemia; R94.31 Abnormal electrocardiogram [ECG] [EKG]; J15.5 Pneumonia due to Escherichia coli; J96.00 Acute respiratory failure, unspecified whether with hypoxia or hypercapnia; J84.10 Pulmonary fibrosis, unspecified; K21.9 Gastro-esophageal reflux disease without esophagitis
CPT/HCPCS: 36415; 36600; 71010; 71045; 80053; 80162; 82550; 82553; 82803; 83735; 84484; 85025; 87070; 87077; 87186; 87205; 93005; 93306; 94640; 94660; 94760; 97110; 97112; 97162; A4216; A4222; A4618; A7030; P9047; G0378; J0713; J1650; J1815; J1940; J2060; J2250; J2270; J2543; J2920; J3475; J7030; J7050; J7613; J7626